=== PATIENT | female | born 1945 | race Two or more races ===

== ENCOUNTER 2017-04-06 00:04 | Inpatient (IN) | payer MEDICARE, MEDICAID ==
[2017-04-06] VITALS (7 sets, daily range): BP systolic 115–141; BP diastolic 59–74
[~2017-04-06] VITALS: Ht 152.4 cm; Wt 77.1 kg
[~2017-04-06 00:04] MED LIST: ACET-868 PO; ASPI-991 PO; BLOO-697 IN; CHOL100044 PO; CITA20TA11 PO; DOCU-270 PO; FAMO20TA8 PO; FURO20TA4 PO; INSU100V7 SQ; METF500T4 PO; METO-302 PO; PREG25CA PO; SIMV40TA5 PO
--- NOTE | 2017-04-06 00:13 | NUR ---
TO BED 7 A 71 YO FEMALE PT MALKA FROM [facility] FOR A COUGH X 2 DAYS. PER PATIENT SHE HAS BEEN COUGHING ALOT WITH YELLOW SPUTUM, AND HAD FEVER YESTERDAY. PATIENT IS AAOX3, NO S/S OF ACUTE DISTRESS. 95% O2 SAT ON ROOM AIR, ENCOURAGED DEEP BREATHING EXERCISES. GOWNED. INITIATED COMFORT MEASURES. AWAITING FOR ER MD THAKUR.
--- NOTE | 2017-04-06 00:23 | NUR ---
CXR AT BEDSIDE.
[2017-04-06] MEDS ORDERED: CLONIDINE HCL 0.1 MG TABLET ONE (00:43)
[2017-04-06] MEDS ORDERED: CLONIDINE HCL 0.1 MG TABLET PO ONE (01:00)
--- NOTE | 2017-04-06 01:25 | NUR ---
started a saline lock on the right wrist g20, blood drawn and sent to lab.
[2017-04-06 01:40] LABS: BASOPHILS % (AUTO) 0.3 % (0.0-2.0); EOSINOPHILS % (AUTO) 0.6 % (0.0-6.0); HEMATOCRIT 28 % (33-45); HEMOGLOBIN 9.3 g/dL (11.5-14.8); LYMPHOCYTES # (AUTO) 1.6 /CMM (0.8-4.8); LYMPHOCYTES % (AUTO) 24.6 % (20.0-44.0); MEAN CORPUSCULAR HEMOGLOBIN 29 PG (26.0-33.0); MEAN CORPUSCULAR HGB CONC 33 g/dl (31.0-36.0); MEAN CORPUSCULAR VOLUME 86 fL (82-100); MONOCYTES # (AUTO) 0.5 /CMM (0.1-1.30); MONOCYTES % (AUTO) 8.5 % (2.0-12.0); NEUTROPHILS # (AUTO) 4.2 /CMM (1.8-8.9); PLATELET COUNT (AUTO) 173 /CMM (150-450); RDW COEFFICIENT OF VARIATION 14.6 (11.5-15.0); RED BLOOD CELL COUNT(AUTO) 3.25 MIL/uL (4.0-5.2); WHITE BLOOD COUNT (AUTO) 6.4 K/uL (4.3-11.0)
[2017-04-06 01:52] LABS: INR 0.98 (0.87-1.13); PROTHROMBIN TIME 10.5 SECS (9.5-12.7)
[2017-04-06 01:55] LABS: CALCIUM, SERUM 8.5 mg/dL (8.5-10.1); CARBON DIOXIDE 20 mmol/L (21-32); CHLORIDE 110 mmol/L (98-107); CREATININE 2.1 mg/dL (0.6-1.3); GLUCOSE 135 mg/dL (74-106); SODIUM SERUM 141 mmol/L (136-145); UREA NITROGEN, BLOOD 50 mg/dL (7-18)
[2017-04-06] MEDS ORDERED: LOSA50TA21 PO (01:57)
[2017-04-06 02:04] LABS: TROPONIN I 0.026 ng/mL (0.00-0.056)
[2017-04-06 02:08] LABS: B-TYPE NATRIURETIC PEPTIDE 4041 PG/ML (0-125)
--- NOTE | 2017-04-06 02:19 | NUR ---
Report given to Johny RN for admission and lora.
--- NOTE | 2017-04-06 02:40 | NUR ---
ADMISSION NOTES: RECEIVED REPORT FROM ERIN ASHFORD, PT CAME FROM [facility], A/O X3 BROUGHT TO THE UNIT VIA GURNEY, PT REFUSING OXYGEN, 93% ON RA, C/O THROAT PAIN AND REQUESTING FOR COUGH SUPPRESSANT. HAS RIGHT WRIST IV G 20, HL. ORIENTED PT TO UNIT POLICY AND HOURLY ROUNDING, INVENTORY OF BELONGING COMPLETED BY SNATY ECHAVARRIA, VS TAKEN AND RECORDED, SKIN ASSESSMENT PERFORMED, TOOK PICTURES AND ATTACHED TO CHART, TELEMONITORING ON SINUS RHYTHM HR 85, DENIES ANY CHEST PAIN OR SOB AT THIS TIME. SAFETY PRECAUTIONS FOR FALL INITIATED CALL LIGHT IN REACH WILL CONTINUE TO MONITOR.
--- NOTE | 2017-04-06 02:42 | NUR ---
Transported to [facility] bed 327-2 via [facility] protocol, no incident noted. Hitesh RN at bedside.
--- NOTE | 2017-04-06 03:27 | NUR ---
ADMIT TO ORDERS: TALKED TO MARJ HOLLAND NP OF DR VINCENT, RELAYED ALL HOME MEDS OF THE PT, PER MARKETING LIAISON TO CONTINUE ALL HOME MEDS EXCEPT METFORMIN, SHE WOULD LIKE TO DC IT BUN CREA ELEVATED 50/2.1, ALSO PT REQUESTING COUGH SUPPRESSANT AND C/O THROAT PAIN, PER MARKETING LIAISON TO GIVE CEPACOL ISHA Q4HRS PRN, AND ROBITUSSIN AC 10CC PO Q4HRS PRN, ALSO SHE WOULD LIKE TO GIVE LASIX 20MG IVP Q12HRS 1ST DOSE TO BE GIVEN NOW, ALSO STAT ABG, ADMIT TO TELEMETRY, WITH DIAGNOSIS OF ACUTE CHF EXACERBATION
[2017-04-06] MEDS ORDERED: MENTHOL/CETYLPYRD (CEPACOL) 1 LOZ LOZENGE ONE (03:28)
[2017-04-06] MEDS ORDERED: GUAIFENESIN/CODEINE 10 ML UDC ONE (03:29)
[2017-04-06] MEDS ORDERED: FUROSEMIDE 20 MG/2 ML VIAL ONE (03:29)
--- NOTE | 2017-04-06 03:36 | NUR ---
ACCUCHECK ORDERS: CONTACTED MARJ HOLLAND NP OF DR VINCENT RELAYED ABOUT BLOOD SUGAR CHECK, PER BELT BUCKLE MAKER, ACCU CHECK ACHS, NO COVERAGE, BUT CONTINUE WITH LANTUS 10UNITS AT HS
--- NOTE | 2017-04-06 03:40 | NUR ---
PRN CEPACOL AND ROBITUSSIN: PT REQUESTED FOR MEDICATION FOR COUGH AND HER THROAT PAIN, PRN ROBITUSSIN 10ML ADMINISTERED TO THE PT, ALSO CEPACOL LOZENGES GIVEN TO THE PT, WILL CONTINUE TO MONITOR AND REASSESS
[2017-04-06] MEDS: GUAIFENESIN/CODEINE 10 ML UDC PO PRN ×3 (03:41→21:56)
[2017-04-06] MEDS: MENTHOL/CETYLPYRD (CEPACOL) 1 LOZ LOZENGE PO PRN (03:41)
[2017-04-06] MEDS: FUROSEMIDE 20 MG/2 ML VIAL IV SCH ×3 (03:41→21:56)
--- NOTE | 2017-04-06 03:48 | NUR ---
OXYGEN REFUSAL: PT REFUSED FOR OXYGEN, SHE STATED SHE'S GETTING SUFFOCATED WITH THE OXYGEN, EXPLAINED TO THE PT REGARDING IMPORTANCE OF OXYGEN, BENEFITS, BUT PT REFUSED, WILL ENCOURAGE AGAIN LATER
--- NOTE | 2017-04-06 04:24 | NUR ---
MONEY TO KEEP IN SAFE: PT HAS $132 AND WOULD LIKE TO KEEP IT IN SAFE, PLACED ON TURNER SAFE BAG AND WILL BE SEND TO NURSING SUP SAFE BOX, WITH NUMBER [id number]
--- NOTE | 2017-04-06 05:00 | NUR ---
REFUSAL FOR ABG: PT REFUSED FOR ABG, STATED SHE DOESNT WANT TO BE POKE AGAIN, EXPLAINED TO THE PT REGARDING RISK AND BENEFITS BUT PT STILL REFUSED, RELAYED TO SCHOLASTIC APTITUDE TEST GRADERJU SMITH, PT 95% ON ROOM AIR NO SOB NOTED
[2017-04-06] MEDS: BLOOD SUGAR DIAGNOSTIC 1 EACH STRIP IN SCH ×6 (06:20→22:00)
--- NOTE | 2017-04-06 06:21 | NUR ---
ACCU CHECK: CHECKED BLOOD SUGAR AND REVEAL 164, NO INSULIN COVERAGE GIVEN PER MD ORDERED, ALSO PT REFUSING FOR INSULIN STATED SHE ONLY TAKES ORAL PILL METFORMIN, INFORMED PT IT WAS CD BY MD,
--- NOTE | 2017-04-06 06:42 | NUR ---
SHOT HOLE SHOOTER CLOSING NOTES: PT IN BED, SLEEPING, AROUSABLE TO TACTILE STIMULI, PT APPEARS CALM AND COMFORTABLE, NO FACIAL GRIMACE NOTED, NO SOB NOTED, PT STILL REFUSING OXYGEN, RIGHT WRIST IV ACCESS REMAINS PATENT AND FLUSHING WELL, ON HL. VS REMAINS STABLE, NEEDS ATTENDED, REMAINS SINUS RHYTHM HR 75, WILL ENDORSE TO DAY RN FOR ELISEO.
--- NOTE | 2017-04-06 07:30 | NUR ---
EKG MONITOR TECH NOTES RECEIVED REPORT WITH PATIENT IN BED. PATIENT IS CURRENTLY A/OX3. PATIENT ON TELE MONITOR: SINUS RHYTHM 84. NO S/S OF ACUTE DISTRESS NOTED. NO SOB NOTED. IV IS PATENT AND INTACT. BED IS IN LOWEST, LOCKED POSITION. CALL LIGHT IS WITHIN REACH. WILL CONTINUE TO MONITOR THROUGHOUT SHIFT.
[2017-04-06] MEDS ORDERED: BLOOD SUGAR DIAGNOSTIC 1 EACH STRIP IN SCH (09:00)
[2017-04-06] MEDS: PREGABALIN 25 MG CAPSULE PO SCH ×2 (09:16→18:07)
[2017-04-06] MEDS: CITALOPRAM HYDROBROMIDE 20 MG TABLET PO SCH (09:16)
[2017-04-06] MEDS: ASPIRIN EC 81 MG TABLET.DR PO SCH (09:17)
[2017-04-06] MEDS: FAMOTIDINE (20 MG) 20 MG TABLET PO SCH (09:17)
[2017-04-06] MEDS: LOSARTAN POTASSIUM 50 MG TABLET PO SCH ×2 (09:17→18:07)
[2017-04-06] MEDS: ACETAMINOPHEN ES 500 MG TABLET PO PRN ×2 (12:14→20:08)
--- NOTE | 2017-04-06 12:25 | NUR ---
BRAKE RIDER NOTES PATIENT BLOOD SUGAR AT 170. NO COVERAGE ORDERED. MD MADE AWARE OF RESULTS. NO NEW ORDERS GIVEN.
[2017-04-06] MEDS ORDERED: DEXTROSE 50%-WATER 50 ML DISP.SYRIN IV PRN (13:00)
--- NOTE | 2017-04-06 19:25 | NUR ---
RN OPEN NOTES RECEIVED PATIENT AWAKE IN BED WITH FAMILY AT BEDSIDE. A/O X3. NO SIGNS OF DISTRESS OR DISCOMFORT. BREATHING EVEN AND UNLABORED. IV ACCESS IN R WRIST PATENT AND INTACT, NO SIGNS OF REDNESS OR INFILTRATION. BED IN LOW LOCKED POSITION WITH SIDE RAILS X2. CALL LIGHT WITHIN REACH. WILL CONTINUE TO MONITOR.
--- NOTE | 2017-04-06 19:30 | NUR ---
MS RN NOTES PATIENT IS A/OX4. NO SOB NOTED. NO S/S OF DISTRESS NOTED. IV IS PATENT AND INTACT. BED IS IN LOWEST, LOCKED POSITION. CALL LIGHT WITHIN REACH. ALL PT NEEDS HAVE BEEN MET. WILL ENDORSE CARE TO PM SHIFT.
[2017-04-06] MEDS: SIMVASTATIN 40 MG TABLET PO SCH (21:56)
[2017-04-06] MEDS: INSULIN ASPART NOVOLOG 100 UNIT/ML CARTRIDGE SQ PRN (21:58)
[2017-04-06] MEDS: INSULIN DETEMIR 100 UNIT/ML CARTRIDGE SQ SCH (21:59)
[2017-04-07] VITALS (7 sets, daily range): BP systolic 102–135; BP diastolic 43–68
[2017-04-07] MEDS: BLOOD SUGAR DIAGNOSTIC 1 EACH STRIP IN SCH ×4 (06:29→22:10)
--- NOTE | 2017-04-07 07:21 | NUR ---
RN CLOSING NOTES PATIENT RESTING IN BED EASILY AROUSABLE TO NAME. A/O X3. NO SIGNS OF DISTRESS OR DISCOMFORT. BREATHING EVEN AND UNLABORED. ON TELE MONITORING WITH SR NOTED. IV ACCESS IN R WRIST PATENT AND INTACT, NO SIGNS OF REDNESS OR INFILTRATION. ALL NEEDS MET. NO SIGNIFICANT CHANGES THROUGH THE NIGHT. PATIENT KEPT CLEAN DRY AND COMFORTABLE. REPOSITIONED Q2H. BED IN LOW LOCKED POSITION WITH SIDE RAILS X2. CALL LIGHT WITHIN REACH. WILL ENDORSE TO AM SHIFT FOR ELISEO.
--- NOTE | 2017-04-07 07:31 | NUR ---
INLAYER OPENING NOTE PATIENT IS ALERT AND ORIENTED x3. NO PAIN AT THIS TIME. NO SOB OR DISTRESS NOTED. CALL LIGHT WITHIN REACH. SAFETY MEASURES IMPLEMENTED. ABLE TO COMMUNICATE NEEDS. IV INTACT AND PATENT NO REDNESS OR SWELLING NOTED. ON STRICT INTAKE AND OUTPUT WITH DAILY WEIGHTS. WILL CONTINUE TO MONITOR
[2017-04-07] MEDS: PREGABALIN 25 MG CAPSULE PO SCH ×2 (08:46→16:29)
[2017-04-07] MEDS: ACETAMINOPHEN ES 500 MG TABLET PO PRN ×2 (08:46→15:43)
[2017-04-07] MEDS: ASPIRIN EC 81 MG TABLET.DR PO SCH (08:47)
[2017-04-07] MEDS: LOSARTAN POTASSIUM 50 MG TABLET PO SCH ×2 (08:47→16:29)
[2017-04-07] MEDS: FAMOTIDINE (20 MG) 20 MG TABLET PO SCH (08:47)
[2017-04-07] MEDS: CITALOPRAM HYDROBROMIDE 20 MG TABLET PO SCH (08:47)
[2017-04-07] MEDS: FUROSEMIDE 20 MG/2 ML VIAL IV SCH ×2 (08:48→21:56)
[2017-04-07] MEDS: INSULIN ASPART NOVOLOG 100 UNIT/ML CARTRIDGE SQ PRN (12:40)
--- NOTE | 2017-04-07 19:07 | NUR ---
SEALER SANDER CLOSING NOTE PATIENT IS ALERT AND ORIENTED x3. NO PAIN AT THIS TIME. NO SOB OR DISTRESS NOTED. CALL LIGHT WITHIN REACH AT ALL TIMES. SAFETY MEASURES IMPLEMENTED. ABLE TO COMMUNICATE NEEDS. IV INTACT AND PATENT NO REDNESS OR SWELLING NOTED. WILL ENDORSE TO HVAC DESIGN ENGINEER NURSE FOR ELISEO.
--- NOTE | 2017-04-07 21:00 | NUR ---
MAKEDA NOTES PATIENT ENDORSED TO SCOTT ASHFORD FOR ELISEO. Addendum: 04/07/17 at 2159 by BHARTI CASTILLO RN ENDORSED TO SCOTT HAYWOOD
--- NOTE | 2017-04-07 21:14 | NUR ---
RECEIVED PT IN BED A/O 3 ABLE TO FOLLOW SIMPLE COMMMANDS AND MAKE NEEDS KNOWN PERRLA. DENIES ANY PAIN. NO SOB NOTED NOT IN ANY DISTRESS. BREATHE SOUNDS CLEAR BILATERALLY TO AUSCULTATION. INCONTINENT OF BOTH BOWEL AND BLADDER. BOWEL SOUNDS ACTIVE ON ALL FOUR QUADRANTS. SKIN CLEAR AND IN TACT. ABLE TO MOVE ALL EXTREMITIES WITH WEAKNESS TO BLE. ALL NEEDS MET, WILL CONTINUE TO MONITOR FOR ANY CHANGES, BED IN LOW POSITION CALL LIGHT WITHIN REACH.
[2017-04-07] MEDS: SIMVASTATIN 40 MG TABLET PO SCH (22:13)
[2017-04-07] MEDS: INSULIN DETEMIR 100 UNIT/ML CARTRIDGE SQ SCH (22:15)
[2017-04-07] MEDS: TRAMADOL HCL 50 MG TABLET PO PRN (22:33)
[2017-04-08] VITALS (7 sets, daily range): BP systolic 105–141; BP diastolic 2–65
[2017-04-08] MEDS: GUAIFENESIN/CODEINE 10 ML UDC PO PRN ×3 (00:27→23:33)
--- NOTE | 2017-04-08 01:25 | NUR ---
pt noted resting, even chest rise. no cough, prn
[2017-04-08] MEDS: TRAMADOL HCL 50 MG TABLET PO PRN ×2 (04:05→18:20)
--- NOTE | 2017-04-08 06:08 | NUR ---
pt slept throughout the night with c/o cough. gave prn robitussin. effective. no SOB noted. not in any distress. remains a/o x3 able to verbalize needs. turned and repositioned [id number] remains incontinent of both bowel and bladder. denies any discomfort. all needs met. bed in low position call light within reach.
--- NOTE | 2017-04-08 07:25 | NUR ---
green end department supervisor initial notes Received patient in bed, awake, head of bed elevated, no SOB or distress noted. On tele monitor SR heart rate of 69, no complaint of pain or discomfort at this time, nor chest pain. Alert and oriented x 3. IV intact and patent. On daily weights 181.1lbs. Kept patient clean and comfortable in bed, call light with in patient reach, will continue to monitor accordingly.
[2017-04-08] MEDS: LOSARTAN POTASSIUM 50 MG TABLET PO SCH ×2 (08:11→17:45)
[2017-04-08] MEDS: FUROSEMIDE 20 MG/2 ML VIAL IV SCH ×2 (08:11→21:52)
[2017-04-08] MEDS: CITALOPRAM HYDROBROMIDE 20 MG TABLET PO SCH (08:11)
[2017-04-08] MEDS: PREGABALIN 25 MG CAPSULE PO SCH ×2 (08:11→17:45)
[2017-04-08] MEDS: FAMOTIDINE (20 MG) 20 MG TABLET PO SCH (08:11)
[2017-04-08] MEDS: ASPIRIN EC 81 MG TABLET.DR PO SCH (08:11)
[2017-04-08] MEDS: INSULIN ASPART NOVOLOG 100 UNIT/ML CARTRIDGE SQ PRN ×4 (08:12→22:02)
[2017-04-08] MEDS: BLOOD SUGAR DIAGNOSTIC 1 EACH STRIP IN SCH ×4 (08:12→21:52)
--- NOTE | 2017-04-08 08:12 | NUR ---
sane rn notes Blood sugar checked 102 no coverage given. Will continue to monitor accordingly.
[2017-04-08 11:08] LABS: CALCIUM, SERUM 8.3 mg/dL (8.5-10.1); CARBON DIOXIDE 21 mmol/L (21-32); CHLORIDE 106 mmol/L (98-107); CREATININE 2.5 mg/dL (0.6-1.3); GLUCOSE 173 mg/dL (74-106); POTASSIUM 4.8 mmol/L (3.5-5.1); SODIUM SERUM 139 mmol/L (136-145); UREA NITROGEN, BLOOD 57 mg/dL (7-18)
--- NOTE | 2017-04-08 11:22 | NUR ---
WOUND CARE CONSULT: PT PRESENTS WITH LEFT HEEL DRY ESCHAR, PRESENT ON ADMISSION. RECOMMENDATIONS MADE FOR SKIN PROTECTION. DISCUSSED WITH NURSING STAFF. PT ON COMFORT GEL MATTRESS. ROLANDO SCORE IS 15. WILL SEE PRN. ESTES IN AGREEMENT WITH PLAN OF CARE. Addendum: 04/08/17 at 1124 by GUSTAVO GALEAS WNDNU Amended: Links added.
[2017-04-08] MEDS ORDERED: Z GUARD REMEDY 2 OZ OINT TP PRN (11:30)
[2017-04-08] MEDS: Z GUARD REMEDY 2 OZ OINT TP SCH (12:33)
[2017-04-08] MEDS: MENTHOL/CETYLPYRD (CEPACOL) 1 LOZ LOZENGE PO PRN (14:44)
--- NOTE | 2017-04-08 19:24 | NUR ---
MS RN closing notes All needs provided, attended, and anticipated. Kept patient clean and comfortable in bed, call light with in patient reach, on 02 @ 2lpm via NC and tolerated well. Endorsed to next shift RN to continue care.
--- NOTE | 2017-04-08 20:00 | NUR ---
RECEIVED PATIENT IN BED, ALERT AND ORIENTED X3, CALM, NO SOB, NO RESPIRATORY DISTRESS, NOTED CONGESTION, INTERMITTENT COUGHING, DENIES ANY PAIN AT THIS TIME, RECEIVED PAIN MEDICATION EARLIER, ABDOMEN SOFT AND NON-TENDER, ACTIVE BOWEL SOUNDS, INCONTINENT OF BOWEL AND BLADDER, RIGHT WRIST SALINE LOCK IS PATENT. REPOSITIONED FOR COMFORT, CALL LIGHT WITHIN REACH.
[2017-04-08] MEDS: SIMVASTATIN 40 MG TABLET PO SCH (21:51)
[2017-04-08] MEDS: INSULIN DETEMIR 100 UNIT/ML CARTRIDGE SQ SCH (22:03)
--- NOTE | 2017-04-08 23:45 | NUR ---
NOTED COUGHING, GIVEN ROBITUSSIN WITH CODEINE, WILL CONTINUE TO MONITOR
[2017-04-09] MEDS: BLOOD SUGAR DIAGNOSTIC 1 EACH STRIP IN SCH ×2 (06:15→12:16)
[2017-04-09] MEDS: INSULIN ASPART NOVOLOG 100 UNIT/ML CARTRIDGE SQ PRN ×2 (06:22→12:16)
--- NOTE | 2017-04-09 06:23 | NUR ---
BG 97 MG/DL, NO INSULIN COVERAGE
--- NOTE | 2017-04-09 06:31 | NUR ---
PATIENT IS ALERT AND AWAKE, NO SOB, NO DISTRESS, TOLERATING ROOM AIR, DENIES ANY PAIN AT THIS TIME, NO COUGHING NOTED, PROVIDED GOOD PERINEAL CARE, ALL DUE MEDICATIONS GIVEN, CALL LIGHT WITHIN REACH.
[2017-04-09 06:36] VITALS: BP 108/59
[2017-04-09 06:37] VITALS: BP 105/54
[2017-04-09 06:38] VITALS: BP 112/56
--- NOTE | 2017-04-09 07:25 | NUR ---
ms rn initial notes Received patient in bed, awake, head of bed elevated, no SOB or distress noted. On 02 @ 2lpm via NC and tolerated well, saturation of 95%. Patient is alert and oriented x 4, verbally responsive and able to make needs known. IV intact and patent. No complaint of pain or discomfort at this time. Kept patient clean and comfortable in bed call light with in patient reach, will continue to monitor accordingly.
[2017-04-09 08:00] VITALS: BP 129/66
[2017-04-09 09:15] VITALS: BP 129/66
[2017-04-09] MEDS: LOSARTAN POTASSIUM 50 MG TABLET PO SCH (09:15)
[2017-04-09] MEDS: CITALOPRAM HYDROBROMIDE 20 MG TABLET PO SCH (09:15)
[2017-04-09] MEDS: ASPIRIN EC 81 MG TABLET.DR PO SCH (09:15)
[2017-04-09] MEDS: FAMOTIDINE (20 MG) 20 MG TABLET PO SCH (09:15)
[2017-04-09] MEDS: FUROSEMIDE 20 MG/2 ML VIAL IV SCH (09:15)
[2017-04-09] MEDS: Z GUARD REMEDY 2 OZ OINT TP SCH (09:16)
[2017-04-09] MEDS: PREGABALIN 25 MG CAPSULE PO SCH (09:17)
[2017-04-09] MEDS: TRAMADOL HCL 50 MG TABLET PO PRN (14:28)
--- NOTE | 2017-04-09 16:10 | NUR ---
ms investigator internal affairs notes Discharge instructions given to patient and nephew Colón on site and able to understand instructions. Eldon (nephew) signed discharge paper and belonging list and released wallet with $132. Discontinued IV and pressured applied to prevent bleeding. Skin assessment done and pictures taken and filed in the chart. No SOB or distress noted. [facility] Flu and pneumonia vaccine not given due to patient is up to date last given 07/2016. [facility] came to moss picker the patient via gurney accompanied by nephew. Patient left in stable condition, no complaint of pain or discomfort noted, on room air, nor chest pain. MD and charge nurse aware.
== END 2017-04-09 16:01 | DRG 291 ==
LOC: ER 00:06 → TELE 02:33 → MED 04-08 10:28
PROVIDERS: ADMIT Internal Medicine; ATTEND Internal Medicine
DX: I13.0 Hypertensive heart and chronic kidney disease with heart failure and stage 1 through stage 4 chronic kidney disease, or unspecified chronic kidney disease (principal); I50.33 Acute on chronic diastolic (congestive) heart failure; N17.9 Acute kidney failure, unspecified; N18.9 Chronic kidney disease, unspecified; E66.9 Obesity, unspecified; Z68.36 Body mass index [BMI] 36.0-36.9, adult; I25.10 Atherosclerotic heart disease of native coronary artery without angina pectoris; Z95.1 Presence of aortocoronary bypass graft; E66.01 Morbid (severe) obesity due to excess calories; I25.2 Old myocardial infarction; Z88.0 Allergy status to penicillin; Z88.2 Allergy status to sulfonamides; E11.22 Type 2 diabetes mellitus with diabetic chronic kidney disease; E11.40 Type 2 diabetes mellitus with diabetic neuropathy, unspecified
CPT/HCPCS: 36415; 71010-TC; 80048-TC; 82962-TC; 83605-TC; 83880; 84484-TC; 85025-TC; 85730-TC; 87040-TC; 87081-TC; 93307-TC; A4606; J1815; J1940; Z7610

== ENCOUNTER 2017-06-14 14:26 | Inpatient (IN) | payer MEDICARE, MEDICAID ==
[~2017-06-14] VITALS: Ht 165.1 cm; Wt 80.3 kg
[~2017-06-14 14:26] MED LIST changes: -ACET-868 PO; -CHOL100044 PO; -DOCU-270 PO; -FURO20TA4 PO; +LOSA50TA21 PO; -METO-302 PO
--- NOTE | 2017-06-14 14:35 | NUR ---
PATIENT BIB RA C/O SOB AND ALTERED MORE THAN USUAL. PATIENT IS BROUGHT IN ON NON REBREATHER MASK. SATURATION 100%. NO COMPLICATIONS NOTED. PATIENT'S VITALS STABLE. SAFETY AND COMFORT MEASURES IN PLACE. AWAITING MD ORDERS.
--- NOTE | 2017-06-14 14:45 | NUR ---
NEW IV INSERTED ON LEFT HAND, 20 G. NOT ABLE TO DRAW BLOOD FROM IV, BUT PATENT AND INTACT. IUSS ACOUSTIC ANALYST TO DRAW BLOOD.
[2017-06-14 14:54] LABS: BASOPHILS # (AUTO) 0.2 /CMM (0.0-0.2); BASOPHILS % (AUTO) 1.6 % (0.0-2.0); EOSINOPHILS # (AUTO) 0.1 /CMM (0.0-0.7); EOSINOPHILS % (AUTO) 0.5 % (0.0-6.0); HEMATOCRIT 27 % (33-45); LYMPHOCYTES # (AUTO) 2.4 /CMM (0.8-4.8); LYMPHOCYTES % (AUTO) 17.6 % (20.0-44.0); MEAN CORPUSCULAR HEMOGLOBIN 28 PG (26.0-33.0); MEAN CORPUSCULAR HGB CONC 33 g/dl (31.0-36.0); MEAN CORPUSCULAR VOLUME 84 fL (82-100); MONOCYTES # (AUTO) 0.7 /CMM (0.1-1.30); MONOCYTES % (AUTO) 5.2 % (2.0-12.0); NEUTROPHILS % (AUTO) 75.1 % (43.0-81.0); PLATELET COUNT (AUTO) 196 /CMM (150-450); RDW COEFFICIENT OF VARIATION 14.6 (11.5-15.0); RED BLOOD CELL COUNT(AUTO) 3.25 MIL/uL (4.0-5.2); WHITE BLOOD COUNT (AUTO) 13.4 K/uL (4.3-11.0)
[2017-06-14] MEDS ORDERED: ACET-868 PO (14:54)
[2017-06-14] MEDS ORDERED: AMIO200T2 PO (14:54)
[2017-06-14] MEDS ORDERED: NA P133E RC (14:54)
[2017-06-14] MEDS ORDERED: BISA10SU8 RC (14:54)
[2017-06-14] MEDS ORDERED: ALBI30PE SQ (14:54)
[2017-06-14] MEDS ORDERED: FURO-145 PO (14:54)
[2017-06-14] MEDS ORDERED: MIRT15TA PO (14:54)
[2017-06-14] MEDS ORDERED: MAGN400O6 PO (14:54)
[2017-06-14] MEDS ORDERED: LOSA25TA13 PO (14:54)
[2017-06-14] MEDS ORDERED: INSU100V11 SQ (14:54)
[2017-06-14] MEDS ORDERED: APIX2.5T PO (14:54)
[2017-06-14] MEDS ORDERED: TRAM50TA2 PO (14:54)
[2017-06-14] MEDS ORDERED: SITA50TA PO (14:54)
[2017-06-14] MEDS ORDERED: IPRA3AMP IH (14:54)
[2017-06-14] MEDS ORDERED: SENN8.6T6 PO (14:54)
[2017-06-14] MEDS ORDERED: IV NS 0.9% 500 ML BAG IV ONE (15:00)
[2017-06-14 15:03] LABS: CALCIUM, SERUM 8.3 mg/dL (8.5-10.1); CARBON DIOXIDE 18 mmol/L (21-32); CHLORIDE 107 mmol/L (98-107); GLUCOSE 126 mg/dL (74-106); POTASSIUM 4.3 mmol/L (3.5-5.1); SODIUM SERUM 140 mmol/L (136-145)
[2017-06-14 15:05] LABS: UREA NITROGEN, BLOOD 80 mg/dL (7-18)
[2017-06-14 15:16] LABS: B-TYPE NATRIURETIC PEPTIDE 7219 PG/ML (0-125)
--- NOTE | 2017-06-14 15:27 | NUR ---
TELEPHONE DIAPHRAGM ASSEMBLER AT BEDSIDE.
[2017-06-14] MEDS ORDERED: IV NS 0.9% 1,000 ML BAG IV ONE (15:30)
--- NOTE | 2017-06-14 16:47 | NUR ---
REPORT GIVEN TO MAKEDA WARD FOR ADMISSION.
--- NOTE | 2017-06-14 17:10 | NUR ---
MS ASHFORD Initial Notes; Patient admitted from ER per MD orders. Patient alert oriented x1. Vital signs WNL. Patient on 3 L nasal cannula. Patient denies pain. Bed in lowest/locked position. Call light within reach. Contacted Tonja Zhang NP. Report from [place]. Valuables accounted for. Home medications were continued. Patient placed on NPO till speech consultation to be done. Will continue to monitor patient.
[2017-06-14 17:15] VITALS: BP_SYST 132; BP_SYST 137; BP_DIAS 69
--- NOTE | 2017-06-14 17:21 | NUR ---
BENEFIT DIRECTOR AT BEDSIDE AND UNABLE TO PERFORM STAT 2D ECHO. DR OSHEA MADE AWARE
--- NOTE | 2017-06-14 17:25 | NUR ---
PATIENT TRANSPORTED TO [facility] FOR ADMISSION. RNSYLVIA TO PROVIDE ELISEO.
[2017-06-14] MEDS: AMIODARONE HCL 200 MG TABLET PO SCH (18:30)
[2017-06-14] MEDS: APIXABAN 2.5 MG TABLET PO SCH (18:30)
[2017-06-14] MEDS ORDERED: MAGNESIUM HYDROXIDE 30 ML UDC PO PRN (18:30)
[2017-06-14] MEDS: FAMOTIDINE (20 MG) 20 MG TABLET PO SCH (18:30)
[2017-06-14] MEDS ORDERED: TRAMADOL HCL 50 MG TABLET PO PRN (18:30)
[2017-06-14] MEDS ORDERED: Medication Not On Formulary EA (Ipratropium/Albuterol Sulfate (Duoneb 2.5-0.5 Mg/3 Ml So IH PRN (18:30)
[2017-06-14] MEDS ORDERED: BISACODYL SUPP (10 MG) 10 MG/SUPP.RECT SUPP.RECT RC PRN (18:30)
[2017-06-14] MEDS ORDERED: NA PHOS,M-B/NA PHOS,DI-BA 1 EA ENEMA RC PRN (18:30)
[2017-06-14] MEDS: LOSARTAN POTASSIUM 25 MG TABLET PO SCH (18:30)
[2017-06-14] MEDS: PREGABALIN 25 MG CAPSULE PO SCH (18:30)
[2017-06-14] MEDS ORDERED: ALBUTEROL FS 2.5 MG/3 ML VIAL.NEB NEB PRN (19:00)
[2017-06-14] MEDS ORDERED: IPRATROPIUM NEB FS 0.5 MG/2.5 ML AMPUL.NEB NEB PRN (19:00)
--- NOTE | 2017-06-14 19:11 | NUR ---
ABG ORDER FOR 1835 ON ROOM AIR COULD NOT BE TAKEN AT THIS TIME. PT IS CURRENTLY ON 3L SAT 88%. MAKEDA ELENOR IS AWARE.
--- NOTE | 2017-06-14 19:51 | NUR ---
Closing RN notes: Patient resting in bed. Patient alert oriented x1. Vital signs WNL. Patient on 3 L nasal cannula. Patient denies pain. Bed in lowest/locked position. Call light within reach. Patient endorsed to next shift
[2017-06-14 20:00] VITALS: BP 117/51
[2017-06-14] MEDS: BLOOD SUGAR DIAGNOSTIC 1 EACH STRIP IN SCH (21:42)
[2017-06-14] MEDS: SENNOSIDES 8.6 MG TABLET PO SCH (22:00)
[2017-06-14] MEDS: MIRTAZAPINE 15 MG TABLET PO SCH (22:00)
[2017-06-14] MEDS: INSULIN ASPART HUMALOG/NOVOLOG 100 UNIT/ML CARTRIDGE SQ PRN (22:03)
--- NOTE | 2017-06-14 22:04 | NUR ---
RN NOTES TRESA SANCHEZ HELD PATIENT NPO. ACCUCHECK 115 MG/DL, INSULIN HELD. PATIENT NPO TILL SWALLOW EVAL.
[2017-06-15] VITALS: BP 116/43
[2017-06-15 04:00] VITALS: BP 128/40
[2017-06-15] MEDS: BLOOD SUGAR DIAGNOSTIC 1 EACH STRIP IN SCH ×4 (06:31→22:24)
--- NOTE | 2017-06-15 06:59 | NUR ---
RN NOTES PATIENT IS ALERT AND AWAKE, ON 2LPM VIA NC, SPO2 92%, NOT IN APPARENT PAIN, NPO PENDING SWALLOW EVAL. ALL NEEDS ATTENDED, CALL LIGHT WITHIN REACH.
--- NOTE | 2017-06-15 07:30 | NUR ---
TELE/RN OPENING NOTES RECEIVED PT. IN BED A&OX2. TELE READING SINUS RHYTHM 80 BPM. BREATHING IS UNLABORED ON OXYGEN AT 2L/MIN WITH NASAL CANNULA. PT. IS NPO DUE TO AWAITING SWALLOW EVALUATION, AND DIET IS PENDING. NO S/S OF ACUTE DISTRESS. BED IS IN LOW POSITION, 2 SIDE RAILS UP, AND INSTRUCTED PT. TO USE CALL LIGHT WITHIN REACH. ALL NEEDS ATTENDED TO AT THIS TIME. WILL CONTINUE TO ASSESS AND MONITOR.
[2017-06-15 08:00] VITALS: BP 119/41
[2017-06-15] MEDS: PREGABALIN 25 MG CAPSULE PO SCH ×2 (09:00→17:49)
[2017-06-15] MEDS: APIXABAN 2.5 MG TABLET PO SCH ×2 (09:00→17:49)
[2017-06-15] MEDS ORDERED: INSULIN DETEMIR 100 UNIT/ML CARTRIDGE SQ SCH (09:00)
[2017-06-15] MEDS ORDERED: FUROSEMIDE 20 MG TABLET PO SCH (09:00)
[2017-06-15] MEDS ORDERED: ALBIGLUTIDE 30 MG SQ SCH (09:00)
[2017-06-15] MEDS: FAMOTIDINE (20 MG) 20 MG TABLET PO SCH ×2 (09:00→17:49)
[2017-06-15] MEDS: LOSARTAN POTASSIUM 25 MG TABLET PO SCH (09:00)
[2017-06-15] MEDS: AMIODARONE HCL 200 MG TABLET PO SCH ×2 (09:00→17:49)
--- NOTE | 2017-06-15 11:05 | NUR ---
TELE/RN NOTES LEFT MESSAGE FOR DR. VINCENT REGARDING PT.'S NPO STATUS, AND POSSIBLY NO SWALLOW EVALUATION OVER WEEKEND. WANTED TO DISCUSS HOW TO MANAGE PT.'S BLOOD SUGAR ON NPO, PO MEDICATIONS BEING HELD, AND IV FLUIDS.
[2017-06-15] MEDS ORDERED: IV NS 0.9% 1,000 ML BAG IV PRN (12:30)
--- NOTE | 2017-06-15 12:40 | NUR ---
telephone maintainer notes Dr. Conner called RN assigned and ordered Heparin 5000 unit SQ Q12hrs. All orders carried out and noted. Will continue to monitor accordingly.
[2017-06-15] MEDS: IV NS 0.9% 1,000 ML IV PRN (12:51)
--- NOTE | 2017-06-15 13:38 | NUR ---
TELE/RN NOTES PT. WAS SEEN AND EXAMINED BY DR. VINECNT. PER MD ORDERS, HEPARIN AND LEVEMIR WAS DISCONTINUED, AND TO HOLD LASIX.
[2017-06-15 16:00] VITALS: BP 132/44
[2017-06-15] MEDS: INSULIN ASPART HUMALOG/NOVOLOG 100 UNIT/ML CARTRIDGE SQ PRN ×2 (17:55→22:47)
--- NOTE | 2017-06-15 19:30 | NUR ---
TELE/RN CLOSING NOTES RECEIVED PT. IN BED A&OX4. TELE MONITOR READING NORMAL SINUS RHYTHM 80 BPM.BREATHING IS UNLABORED ON OXYGEN AT 2L/MIN WITH NASAL CANNULA. WAS ABLE TO SWALLOW PUREED AND FULL LIQUIDS WITHOUT COMPLICATIONS. DIET WAS CHANGED TO PUREE FOOD, AND THICKENED LIQUIDS PER MD ORDERS. IV FLUIDS RUNNING AT 75 ML/HR. NO S/S OF ACUTE DISTRESS. BED IS IN LOW POSITION, 2 SIDE RAILS UP, AND INSTRUCTED PT. TO USE CALL LIGHT WITHIN REACH. ALL NEEDS ATTENDED TO AT THIS TIME.
--- NOTE | 2017-06-15 19:40 | NUR ---
TELE/CLERICAL ADJUDICATOR; RECEIVED PT'S REPORT FROM THE DAY SHIFT RN . PT AT THIS TIME IN BED AWAKE, ALERT AND VERBALLY RESPONSIVE. BREATHING NON LABORED. WITH O2 2L NC ON. ON TELEMETRY. IVF ON PROGRESS WITH NS AT 75 ML / HOUR ON LT HAND. NO S/S OF DISTRESS. DENIES PAIN. BED ON LOWER POSITION AND LOCKED FOR SAFETY. SIDE RAILS ARE UP FOR SAFETY. PT REMINDED TO CALL FOR HELP AND CALL LIGHT WITHIN REACH. WILL CONTINUE TO MONITOR.
[2017-06-15 20:00] VITALS: BP 113/46
[2017-06-15] MEDS ORDERED: HEPARIN SODIUM, PORCINE 5000 UNITS/1 ML VIAL SQ SCH (21:00)
[2017-06-15 21:25] VITALS: BP 122/62
[2017-06-15] MEDS: SENNOSIDES 8.6 MG TABLET PO SCH (21:48)
[2017-06-15] MEDS: MIRTAZAPINE 15 MG TABLET PO SCH (21:48)
--- NOTE | 2017-06-15 22:20 | NUR ---
TELE/LAUNDRY MANAGER; BS 208 COVERED WITH NOVOLOG INSULIN 4 UNITS SQ. PT AT THIS TIME IS ALERT AND ORIENTED. WILL CONTINUE TO MONITOR.
[2017-06-16] VITALS: BP 130/47
[2017-06-16] MEDS: IV NS 0.9% 1,000 ML IV PRN (01:56)
[2017-06-16 04:00] VITALS: BP 143/48
--- NOTE | 2017-06-16 06:00 | NUR ---
TELE/BALLET PROFESSOR; BS 79 NO COVERAGE. PT ON SR 66.
--- NOTE | 2017-06-16 06:00 | NUR ---
TELE/ROCK DUSTER; BS 79 NO COVERAGE. PT ON V - PACING 71. Addendum: 06/16/17 at 0757 by BRET DIEZ LVN DISREGARD THE ABOVE NOTES WITH ERRORS.
[2017-06-16] MEDS: BLOOD SUGAR DIAGNOSTIC 1 EACH STRIP IN SCH ×4 (06:14→22:08)
--- NOTE | 2017-06-16 07:00 | NUR ---
TELE/SANITIZER; SLEPT FAIRLY. IVF ON PROGRESS. AM CARE DONE BY THE REFRACTORY SPECIALIST. HAS BEEN TURNED AND REPOSITIONED. WILL ENDORSE TO THE DAY SHIFT NURSE FOR CONTINUITY OF CARE.
[2017-06-16 07:34] LABS: BASOPHILS % (AUTO) 0.2 % (0.0-2.0); EOSINOPHILS # (AUTO) 0.1 /CMM (0.0-0.7); EOSINOPHILS % (AUTO) 1.1 % (0.0-6.0); HEMATOCRIT 24 % (33-45); HEMOGLOBIN 7.8 g/dL (11.5-14.8); LYMPHOCYTES # (AUTO) 1.7 /CMM (0.8-4.8); LYMPHOCYTES % (AUTO) 20.8 % (20.0-44.0); MEAN CORPUSCULAR HEMOGLOBIN 28 PG (26.0-33.0); MEAN CORPUSCULAR HGB CONC 33 g/dl (31.0-36.0); MEAN CORPUSCULAR VOLUME 86 fL (82-100); MONOCYTES # (AUTO) 0.4 /CMM (0.1-1.30); MONOCYTES % (AUTO) 4.7 % (2.0-12.0); NEUTROPHILS % (AUTO) 73.2 % (43.0-81.0); PLATELET COUNT (AUTO) 181 /CMM (150-450); WHITE BLOOD COUNT (AUTO) 8.3 K/uL (4.3-11.0)
[2017-06-16 07:58] LABS: CALCIUM, SERUM 8.2 mg/dL (8.5-10.1); CARBON DIOXIDE 19 mmol/L (21-32); CHLORIDE 115 mmol/L (98-107); CREATININE 2.4 mg/dL (0.6-1.3); GLUCOSE 100 mg/dL (74-106); POTASSIUM 4.1 mmol/L (3.5-5.1); SODIUM SERUM 146 mmol/L (136-145); UREA NITROGEN, BLOOD 67 mg/dL (7-18)
[2017-06-16 08:00] VITALS: BP 146/47
--- NOTE | 2017-06-16 08:00 | NUR ---
HOSE STRIPPER NOTES PATIENT RESTING IN BED, ON OXYGEN VIA NC AT 2 LPM. NO SOB, NO ACUTE DISTRESS NOTED. NO C/O PAIN NOTED. ABLE TO VERBALIZE NEEDS. CALL LIGHT WITHIN REACH. PERIPHERAL IV LINE ON LEFT HAND, INTACT PATENT. BED INLOW LOCKED POSITION. OBSERVING CLOSELY.
[2017-06-16] MEDS: FAMOTIDINE (20 MG) 20 MG TABLET PO SCH ×2 (08:47→17:31)
[2017-06-16] MEDS: AMIODARONE HCL 200 MG TABLET PO SCH ×2 (08:47→17:31)
[2017-06-16] MEDS: APIXABAN 2.5 MG TABLET PO SCH ×2 (08:47→17:32)
[2017-06-16] MEDS: PREGABALIN 25 MG CAPSULE PO SCH ×2 (08:47→17:30)
[2017-06-16] MEDS: INSULIN ASPART HUMALOG/NOVOLOG 100 UNIT/ML CARTRIDGE SQ PRN (13:01)
--- NOTE | 2017-06-16 14:00 | NUR ---
HOME DELIVERY DRIVER NOTES PATIENT RESTING IN BED WITHOUT ANY COMPLICATIONS. NO C/O PAIN, NO DISTRESS NOTED. AL NEEDS MET. MONITORING CLOSELY.
[2017-06-16 16:00] VITALS: BP 147/51
[2017-06-16] MEDS: IV 1/2NS 1000 ML 1,000 ML IV PRN (16:16)
--- NOTE | 2017-06-16 19:01 | NUR ---
SYSTEMS TECHNOLOGIST NOTES PATIENT SLEEPING IN BED, COMFORTABLE, REPOSITIONED IN BED. PERIPHERAL IV LINE ON LEFT HAND INTACT PATENT. ON OXYGEN 2LPM VIA NC, OXYGEN SATURATION 98%, RESPIRATION NONLABORED. KEPT CLEAN & DRY. BED IN LOW LOCKED POSITION. ON PLANTING MATERIAL REMOVER WITH SR 66. ALL MEDICATIONS ADMINISTERED. ALL NEEDS MET.CALL LIGHT WITHIN REACH. CONTINUING TO MONITOR.
--- NOTE | 2017-06-16 19:40 | NUR ---
TELE/RN NOTES RECEIVED PT. LYING IN BED RESTING. PT. IS EASILY AROUSABLE TO NAME. AWAKE, ALERT AND ORIENTED X3. BREATHING EVEN AND UNLABORED ON 2LPM O2 VIA NC. NO SOB, RESPIRATORY DISTRESS OR COMPLAINTS OF PAIN NOTED AT THIS TIME. PT. WITH EXTERNAL MANAGER BODY PRESENT AND INTACT. CURRENT RHYTHM = SINUS RHYTHM HR 77. PT. WITH LEFT HAND 20 GAUGE PERIPHERAL IV PRESENT, PATENT AND INTACT ADMINISTERING TO PT. 1/2 NS @ 75 ML/HR. BED IN LOWEST POSITION, CALL LIGHT WITHIN REACH, SIDE RAILS UP X2, WILL CONTINUE TO MONITOR.
[2017-06-16 20:00] VITALS: BP 115/56
[2017-06-16 20:27] VITALS: BP 115/56
[2017-06-16] MEDS: SENNOSIDES 8.6 MG TABLET PO SCH (22:09)
[2017-06-16] MEDS: MIRTAZAPINE 15 MG TABLET PO SCH (22:09)
[2017-06-17 00:05] VITALS: BP 140/52
[2017-06-17 04:50] VITALS: BP 159/62
--- NOTE | 2017-06-17 06:34 | NUR ---
TELE/RN NOTES PT. IS LYING IN BED RESTING. BREATHING EVEN AND UNLABORED ON 2LPM O2 VIA NC. NO SOB, RESPIRATORY DISTRESS OR COMPLAINTS OF PAIN NOTED AT THIS TIME. PT. WITH EXTERNAL SALT MINER PRESENT AND INTACT. CURRENT RHYTHM = SINUS RHYTHM HR 72. PT. WITH LEFT HAND 20 GAUGE PERIPHERAL IV PRESENT, PATENT AND INTACT ADMINISTERING TO PT. 1/2 NS @ 75 ML/HR. ALL PT. NEEDS MET. PT. TURNED AND REPOSITIONED Q2H AND NEEDED. BED IN LOWEST POSITION, CALL LIGHT WITHIN REACH, SIDE RAILS UP X2, WILL ENDORSE TO DAYSHIFT NURSE FOR CONTINUITY OF CARE.
[2017-06-17] MEDS: BLOOD SUGAR DIAGNOSTIC 1 EACH STRIP IN SCH ×4 (06:49→22:11)
[2017-06-17] MEDS: IV 1/2NS 1000 ML 1,000 ML IV PRN ×2 (06:50→20:32)
[2017-06-17 07:41] VITALS: BP 162/63
--- NOTE | 2017-06-17 08:00 | NUR ---
MS RN NOTES PATIENT IN BED RESTING NO SOB OR ACUTE DISTRESS NOTED. BED IN LOW LOCKED POSITION. CALL LIGHT WITHIN REACH. PERIPHERAL IV INTACT PATENT. WILL CONTINUE TO MONITOR.
[2017-06-17] MEDS: FAMOTIDINE (20 MG) 20 MG TABLET PO SCH ×2 (09:01→17:18)
[2017-06-17] MEDS: AMIODARONE HCL 200 MG TABLET PO SCH ×2 (09:01→17:18)
[2017-06-17] MEDS: PREGABALIN 25 MG CAPSULE PO SCH ×2 (09:01→17:18)
[2017-06-17] MEDS: APIXABAN 2.5 MG TABLET PO SCH ×2 (09:01→17:19)
[2017-06-17 12:00] VITALS: BP 159/62
[2017-06-17] MEDS: INSULIN ASPART HUMALOG/NOVOLOG 100 UNIT/ML CARTRIDGE SQ PRN ×3 (12:53→22:11)
--- NOTE | 2017-06-17 15:00 | NUR ---
MS RN NOTES PATIENT SEEN AND EVALUATED BY DR. VINCENT ORDERS NOTED AND CARRIED OUT.
[2017-06-17 16:00] VITALS: BP 155/67
--- NOTE | 2017-06-17 19:15 | NUR ---
RN OPEN NOTES RECEIVED PATIENT RESTING IN BED, EASILY AROUSABLE TO NAME. A/O 3. NO SIGNS OF DISTRESS OR DISCOMFORT. BREATHING EVEN AND UNLABORED. IV ACCESS IN R HAND WITH 1/2 NS INFUSING, PATENT AND INTACT, NO SIGNS OF REDNESS OR INFILTRATION. BED IN LOW LOCKED POSITION WITH SIDE RAILS X2. CALL LIGHT WITHIN REACH. WILL CONTINUE TO MONITOR. Addendum: 06/17/17 at 2038 by BHARTI CASTILLO RN RECEIVED PATIENT ON 2LPM O2 VIA NC
--- NOTE | 2017-06-17 19:27 | NUR ---
MS RN NOTES PATIENT IN BED SLEEPING NO SOB OR ACUTE DISTRESS NOTED. ALL DUE MEDICATIONS ADMINISTERED. ALL NEEDS MET. WILL ENDORSE TO PM SHIFT ELISEO.
[2017-06-17 20:00] VITALS: BP 100/60
[2017-06-17] MEDS: SENNOSIDES 8.6 MG TABLET PO SCH (22:06)
[2017-06-17] MEDS: MIRTAZAPINE 15 MG TABLET PO SCH (22:06)
[2017-06-18] MEDS: BLOOD SUGAR DIAGNOSTIC 1 EACH STRIP IN SCH ×4 (06:45→21:00)
--- NOTE | 2017-06-18 06:55 | NUR ---
RN CLOSING NOTES PATIENT AWAKE IN BED. A/O X3. NO SIGNS OF DISTRESS OR DISCOMFORT. BREATHING EVEN AND UNLABORED. ON 2LPM O2 VIA NC. IV ACCESS IN L HAND WITH 1/2 NS INFUSING, PATENT AND INTACT, NO SIGNS OF REDNESS OR INFILTRATION. ALL NEEDS MET. REPOSITIONED Q2H. BED IN LOW LOCKED POSITION WITH SIDE RAILS X2. CALL LIGHT WITHIN REACH. WILL CONTINUE TO MONITOR.
--- NOTE | 2017-06-18 07:05 | NUR ---
MS Initial Notes: Patient resting in bed. Patient alert oriented x3. Non-labored breathing noted. Patient on 2 L nasal cannula. No signs of distress noted. IV site patent and intact. Bed at lowest/locked position. Call light within reach.
[2017-06-18 08:00] VITALS: BP_SYST 157; BP_DIAS 52; BP_DIAS 58
[2017-06-18 08:48] LABS: CALCIUM, SERUM 8.3 mg/dL (8.5-10.1); CARBON DIOXIDE 16 mmol/L (21-32); CHLORIDE 116 mmol/L (98-107); CREATININE 1.7 mg/dL (0.6-1.3); GLUCOSE 115 mg/dL (74-106); POTASSIUM 4.9 mmol/L (3.5-5.1); SODIUM SERUM 145 mmol/L (136-145); UREA NITROGEN, BLOOD 41 mg/dL (7-18)
[2017-06-18] MEDS: PREGABALIN 25 MG CAPSULE PO SCH ×2 (09:49→17:09)
[2017-06-18] MEDS: ATORVASTATIN 10 MG TABLET PO SCH (09:49)
[2017-06-18] MEDS: FAMOTIDINE (20 MG) 20 MG TABLET PO SCH ×2 (09:49→17:10)
[2017-06-18] MEDS: AMIODARONE HCL 200 MG TABLET PO SCH ×3 (09:50→17:10)
[2017-06-18] MEDS: APIXABAN 2.5 MG TABLET PO SCH ×2 (09:51→17:09)
[2017-06-18] MEDS: IV 1/2NS 1000 ML 1,000 ML IV PRN (11:15)
--- NOTE | 2017-06-18 12:43 | NUR ---
WOUND CARE CONSULT: PT PRESENTS WITH INCONTINENCE AND SACRAL SCARRING WITH SOME STAINING OF SKIN. LEFT HEEL CALLUS NOTED WITH SOME DRY SKIN. RECOMMENDATIONS MADE FOR SKIN PROTECTION. DISCUSSED WITH NURSING STAFF. WILL SEE SHIRAN. PT ON COMFORT GEL MATTRESS. IN AGREEMENT WITH PLAN OF CARE. Addendum: 06/18/17 at 1245 by GUSTAVO GALEAS WNDNU Amended: Links added.
[2017-06-18] MEDS ORDERED: Z GUARD REMEDY 2 OZ OINT TP PRN (13:00)
[2017-06-18] MEDS ORDERED: MINERAL OIL/PETROLATUM,WHITE 120 GM JAR TP PRN (13:00)
[2017-06-18] MEDS: Z GUARD REMEDY 2 OZ OINT TP SCH (13:34)
[2017-06-18] MEDS: ACETAMINOPHEN 325 MG TABLET PO PRN (13:38)
[2017-06-18 16:00] VITALS: BP_SYST 110; BP_SYST 154; BP_DIAS 62; BP_DIAS 64
[2017-06-18] MEDS: INSULIN ASPART HUMALOG/NOVOLOG 100 UNIT/ML CARTRIDGE SQ PRN ×2 (17:50→21:18)
--- NOTE | 2017-06-18 17:50 | NUR ---
MS RN notes: Blood sugar 116. Insulin held per MD orders
--- NOTE | 2017-06-18 19:17 | NUR ---
ms rn closing notes All needs provided, attended, and anticipated. Kept patient clean and comfortable in bed, call light with in patient reach, endorsed to next shift RN to continue care. No complaint of pain or discomfort at this time.
[2017-06-18 20:29] VITALS: BP 159/54
[2017-06-18] MEDS: MIRTAZAPINE 15 MG TABLET PO SCH (20:58)
[2017-06-18] MEDS: SENNOSIDES 8.6 MG TABLET PO SCH (20:58)
--- NOTE | 2017-06-18 22:00 | NUR ---
MS RN NOTE BLOOD SUGAR 168. 3 UNITS GIVEN.
[2017-06-18 22:59] VITALS: BP 159/54
[2017-06-19] MEDS: BLOOD SUGAR DIAGNOSTIC 1 EACH STRIP IN SCH ×4 (06:21→21:06)
--- NOTE | 2017-06-19 06:26 | NUR ---
MS RN NOTE PATIENT STABLE. ALL NEEDS MET AND ATTENDED TO. BLOOD SUGAR 103. NO COVERAGE NEEDED. WILL ENDORSE TO DAY SHIFT FOR ELISEO.
--- NOTE | 2017-06-19 07:25 | NUR ---
RN OPENING NOTES RECEIVED PT. IN BED A&OX1-2, CONFUSED. PT. HAD GARGLING WHILE BREATHING, CRACKLES THROUGHOUT LUNGS ON AUSCULTATION. CALLED RESPIRATORY THERAPY FOR AN EVALUATION, AND BREATHING TREATMENT. NO S/S OF DISTRESS. PT. HAS IV FLUIDS RUNNING AT 75 ML/HR. BED IS IN LOW POSITION, 2 SIDE RAILS UP, AND CALL LIGHT IS WITHIN REACH. WILL CONTINUE TO ASSESS AND MONITOR.
--- NOTE | 2017-06-19 07:30 | NUR ---
RN NOTES RESPIRATORY THERAPIST CAME IN FOR AN EVALUATION. PT. OXYGEN SATURATION WAS READING 100%. SUCTIONING WAS PERFORMED. NO S/S OF SOB.
[2017-06-19 08:00] VITALS: BP 114/51
[2017-06-19] MEDS: ATORVASTATIN 10 MG TABLET PO SCH (09:41)
[2017-06-19] MEDS: FAMOTIDINE (20 MG) 20 MG TABLET PO SCH ×2 (09:41→17:55)
[2017-06-19] MEDS: PREGABALIN 25 MG CAPSULE PO SCH ×2 (09:41→17:54)
[2017-06-19] MEDS: APIXABAN 2.5 MG TABLET PO SCH ×2 (09:42→17:55)
[2017-06-19] MEDS: AMIODARONE HCL 200 MG TABLET PO SCH ×2 (09:42→17:55)
[2017-06-19] MEDS: SODIUM BICARBONATE 650 MG TABLET PO SCH ×3 (09:42→17:56)
[2017-06-19] MEDS: Z GUARD REMEDY 2 OZ OINT TP SCH (09:46)
--- NOTE | 2017-06-19 11:00 | NUR ---
RN NOTES SPOKE WITH DR. VINCENT ON THE PHONE REGARDING PT.'S CONDITION. NOTIFIED MD ABOUT PT.'S LABS, AND CHANGE IN CONDITION THIS MORNING. PER MD NEW ORDERS GIVEN TO DISCONTINUE IV FLUIDS, AND TO ORDER NEW LABS, BMP TOMORROW.
--- NOTE | 2017-06-19 11:10 | NUR ---
CHARGE NOTES PER DR. VINCENT TO HOLD DC FOR NOW AND ANUSHKA KEEP PT FOR 1 MORE DAY. CM INFORMED.
[2017-06-19 16:00] VITALS: BP 124/97
[2017-06-19] MEDS: INSULIN ASPART HUMALOG/NOVOLOG 100 UNIT/ML CARTRIDGE SQ PRN ×2 (18:12→21:10)
--- NOTE | 2017-06-19 19:30 | NUR ---
RN CLOSING NOTES PT. IN BED A&OX2-3 WITH HEAD OF BED UP. BREATHING ON ROOM AIR UNLABORED ADN OXYGEN SATURATION AT 100%. NO S/S OF SOB. NO S/S OF ACUTE DISTRESS. PT. IV FLUIDS DISCONTINUED TODAY PER MD ORDER. PT. HAS A LEFT HAND SALINE LOCK, PATENT AND INTACT. BED IS IN LOW POSITION, 2 SIDE RAILS UP, AND CALL LIGHT IS WITHIN REACH. WILL ENDORSE REPORT TO NURSE PT. IS ON ASPIRATION PRECAUTIONS, NEEDS ASSISTANCE DURING FEEDING.
--- NOTE | 2017-06-19 19:30 | NUR ---
RN NOTES RECEIVED PATIENT IN BED AWAKE, AO X 2, ABLE TO MAKE NEEDS KNOWN. NO ACUTE DISTRESS NOTED. DENIES ANY PAIN AT THIS TIME. NO SYMPTOMS OF HYPER/HYPOGLYCEMIA. IV SITE PATENT, INTACT; FLUSHED. SAFETY REMINDERS GIVEN. ON LOW BED WITH BILATERAL UPPER SIDE RAILS UP. CALL LIGHT WITHIN EASY REACH. WILL CONTINUE TO MONITOR.
[2017-06-19 20:00] VITALS: BP 137/56
[2017-06-19] MEDS: MIRTAZAPINE 15 MG TABLET PO SCH (21:06)
[2017-06-19] MEDS: SENNOSIDES 8.6 MG TABLET PO SCH (21:06)
[2017-06-20] MEDS: ACETAMINOPHEN 325 MG TABLET PO PRN ×2 (06:19→15:47)
--- NOTE | 2017-06-20 06:30 | NUR ---
RN NOTES PATIENT IN BED AWAKE, RESPIRATIONS EVEN. NO SIGNS OF PAIN NOTED. NO SYMPTOMS OF HYPER/HYPOGLYCEMIA. DUE MEDS GIVEN WITH NO ASE NOTED. NEEDS ATTENDED. SAFETY PRECAUTIONS AND COMFORT MEASURES IN PLACE. WILL GIVE REPORT TO DAY SHIFT FOR CONTINUITY OF CARE.
[2017-06-20] MEDS: BLOOD SUGAR DIAGNOSTIC 1 EACH STRIP IN SCH ×2 (06:33→12:06)
[2017-06-20 07:10] LABS: CALCIUM, SERUM 8.1 mg/dL (8.5-10.1); CARBON DIOXIDE 19 mmol/L (21-32); CHLORIDE 117 mmol/L (98-107); CREATININE 1.5 mg/dL (0.6-1.3); GLUCOSE 120 mg/dL (74-106); POTASSIUM 4.6 mmol/L (3.5-5.1); SODIUM SERUM 146 mmol/L (136-145); UREA NITROGEN, BLOOD 32 mg/dL (7-18)
--- NOTE | 2017-06-20 07:20 | NUR ---
RN NOTES PT IS IN BED, RESTING COMFORTABLY ON RA, SATING 96%. PT SHOWS NO SIGNS OF DISTRESS OR PAIN AT THIS TIME. IV ON ON L HAND, INTACT AND PATENT, SL. SAFETY MEASURES ARE IN PLACE, CALL LIGHT IS IN REACH. WILL CONTINUE TO MONITOR.
[2017-06-20 08:00] VITALS: BP 165/74
[2017-06-20] MEDS: PREGABALIN 25 MG CAPSULE PO SCH (08:17)
[2017-06-20] MEDS: AMIODARONE HCL 200 MG TABLET PO SCH (08:17)
[2017-06-20] MEDS: SODIUM BICARBONATE 650 MG TABLET PO SCH ×2 (08:18→12:07)
[2017-06-20] MEDS: ATORVASTATIN 10 MG TABLET PO SCH (08:18)
[2017-06-20] MEDS: Z GUARD REMEDY 2 OZ OINT TP SCH (08:18)
[2017-06-20] MEDS: FAMOTIDINE (20 MG) 20 MG TABLET PO SCH (08:18)
[2017-06-20] MEDS: APIXABAN 2.5 MG TABLET PO SCH (08:24)
[2017-06-20] MEDS: INSULIN ASPART HUMALOG/NOVOLOG 100 UNIT/ML CARTRIDGE SQ PRN (12:11)
[2017-06-20 16:00] VITALS: BP 159/67
--- NOTE | 2017-06-20 16:45 | NUR ---
RN NOTES PT WAS DISCHARGED TO [facility] IN STABLE CONDITION BY AMBULANCE. DISCHARGE PAPERS AND BELONGINGS LIST WERE SIGNED. PT WAS EDUCATED TO FOLLOW UP WITH PCP, PT STATED SHE WOULD MAKE APPOINTMENT ON HER OWN. IV AND ID BAND WERE REMOVED. BELONGINGS WERE BROUGHT WITH PATIENT.
== END 2017-06-20 16:57 | DRG 682 ==
LOC: ER 14:27 → TELE 16:38 → MED 06-17 13:29
PROVIDERS: ADMIT Internal Medicine; ATTEND Internal Medicine
DX: N17.9 Acute kidney failure, unspecified (principal); G93.40 Encephalopathy, unspecified; E87.2 Acidosis; I95.9 Hypotension, unspecified; I13.0 Hypertensive heart and chronic kidney disease with heart failure and stage 1 through stage 4 chronic kidney disease, or unspecified chronic kidney disease; I42.9 Cardiomyopathy, unspecified; I50.32 Chronic diastolic (congestive) heart failure; E11.22 Type 2 diabetes mellitus with diabetic chronic kidney disease; G30.9 Alzheimer's disease, unspecified; F02.80 Dementia in other diseases classified elsewhere, unspecified severity, without behavioral disturbance, psychotic disturbance, mood disturbance, and anxiety; I48.0 Paroxysmal atrial fibrillation; N18.3 Chronic kidney disease, stage 3 (moderate); Z88.0 Allergy status to penicillin; Z88.2 Allergy status to sulfonamides; Z90.49 Acquired absence of other specified parts of digestive tract; Z95.1 Presence of aortocoronary bypass graft; K21.9 Gastro-esophageal reflux disease without esophagitis; I25.2 Old myocardial infarction; I25.10 Atherosclerotic heart disease of native coronary artery without angina pectoris; Z79.01 Long term (current) use of anticoagulants; E66.9 Obesity, unspecified; G31.84 Mild cognitive impairment of uncertain or unknown etiology; Z68.29 Body mass index [BMI] 29.0-29.9, adult; I27.2 Other secondary pulmonary hypertension; I35.0 Nonrheumatic aortic (valve) stenosis; I34.2 Nonrheumatic mitral (valve) stenosis
CPT/HCPCS: 36415; 71010-TC; 76770-TC; 80048-TC; 82962-TC; 83880; 85025-TC; 87040-TC; 87081-TC; 92526; 92611-TC; 93307-TC; A4606; J1815; J3490; J7030; J7040

== ENCOUNTER 2017-09-29 15:11 | Inpatient (IN) | payer MEDICARE, MEDICAID ==
[~2017-09-29] VITALS: Ht 157.5 cm; Wt 77.1 kg
[~2017-09-29 15:11] MED LIST changes: +ACET-868 PO; +ALBI30PE SQ; +AMIO200T2 PO; +APIX2.5T PO; -ASPI-991 PO; +BISA10SU8 RC; -CITA20TA11 PO; +FURO-145 PO; +INSU100V11 SQ; +IPRA3AMP IH; +LOSA25TA13 PO; -LOSA50TA21 PO; +MAGN400O6 PO; -METF500T4 PO; +MIRT15TA PO; +NA P133E RC; +SENN-167 PO; +SITA50TA PO; +TRAM50TA2 PO
--- NOTE | 2017-09-29 15:15 | NUR ---
BIBRA 86 FROM [facility] C/O PAIN TO BILATERAL LOWER EXTREMITIES PAIN, PITTING EDEMA +1. RESP IS EVEN AND UNLABORED WITH NAD NOTED. SKIN IS WARM AND DRY. DR BATISTA AT FOR EVAL.
[2017-09-29] MEDS ORDERED: ATOR20TA PO (15:39)
[2017-09-29 15:51] LABS: BASOPHILS # (AUTO) 0.1 /CMM (0.0-0.2); BASOPHILS % (AUTO) 0.6 % (0.0-2.0); EOSINOPHILS # (AUTO) 0.1 /CMM (0.0-0.7); EOSINOPHILS % (AUTO) 0.8 % (0.0-6.0); HEMATOCRIT 32 % (33-45); HEMOGLOBIN 10.4 g/dL (11.5-14.8); LYMPHOCYTES # (AUTO) 1.2 /CMM (0.8-4.8); LYMPHOCYTES % (AUTO) 9.9 % (20.0-44.0); MEAN CORPUSCULAR HEMOGLOBIN 29 PG (26.0-33.0); MEAN CORPUSCULAR HGB CONC 33 g/dl (31.0-36.0); MEAN CORPUSCULAR VOLUME 86 fL (82-100); MONOCYTES # (AUTO) 0.6 /CMM (0.1-1.30); MONOCYTES % (AUTO) 4.7 % (2.0-12.0); NEUTROPHILS # (AUTO) 9.9 /CMM (1.8-8.9); PLATELET COUNT (AUTO) 216 /CMM (150-450); RDW COEFFICIENT OF VARIATION 14.6 (11.5-15.0); RED BLOOD CELL COUNT(AUTO) 3.66 MIL/uL (4.0-5.2); WHITE BLOOD COUNT (AUTO) 11.9 K/uL (4.3-11.0)
[2017-09-29 16:09] LABS: ALANINE AMINOTRANSFERASE 17 U/L (12-78); ALBUMIN 2.8 g/dL (3.4-5.0); ALKALINE PHOSPHATASE 62 U/L (46-116); ASPARTATE AMINOTRANSFERASE 14 U/L (15-37); BILIRUBIN,TOTAL 0.2 mg/dL (0.2-1.0); CALCIUM, SERUM 8.3 mg/dL (8.5-10.1); CARBON DIOXIDE 25 mmol/L (21-32); CHLORIDE 104 mmol/L (98-107); CREATININE 2.2 mg/dL (0.6-1.3); GLUCOSE 136 mg/dL (74-106); INR 1.05 (0.87-1.13); POTASSIUM 5.1 mmol/L (3.5-5.1); SODIUM SERUM 136 mmol/L (136-145); TOTAL PROTEIN, SERUM 6.8 g/dL (6.4-8.2); UREA NITROGEN, BLOOD 60 mg/dL (7-18)
[2017-09-29 16:14] LABS: TROPONIN I < 0.017 ng/mL (0.00-0.056)
--- NOTE | 2017-09-29 17:20 | NUR ---
TELE [phone]
--- NOTE | 2017-09-29 18:02 | NUR ---
PT TRANSPORTED TO [facility]
[2017-09-29 19:00] VITALS: BP 130/57
--- NOTE | 2017-09-29 19:00 | NUR ---
APPLE PICKING SUPERVISOR NOTES RECEIVED PT IN BED, AWAKE, ALERT AND ORIENTED X 3, NOTED WITH FORGETFULNESS, ABLE TO MAKE NEEDS KNOWN. NOTED PT WITH NO SOB, BREATHING EVEN AND UNLABORED, IN NO ACUTE DISTRESS AT THIS TIME. ADMITTED UNDER TELE WITH SR @70 WITH FIRST DEG AV BLOCK. ORIENTED PT TO FACILITY, ROOM, CALL LIGHT AND USE OF CALL LIGHT, PT VERBALIZED UNDERSTANDING. ALL PATIENT'S NEEDS ATTENDED TO. PLACED PT'S CALL LIGHT WITHIN EASY REACH. WILL CONTINUE TO MONITOR.
--- NOTE | 2017-09-29 19:00 | NUR ---
RN NOTES DR. VINCENT PAGED FOR ADMISSION ORDERS. AWAITING FOR CALL BACK.
[2017-09-29 20:00] VITALS: BP 130/57
--- NOTE | 2017-09-29 20:40 | NUR ---
RN NOTES RECEIVED ADMISSION ORDERS FROM DR. VINCENT. ALL ORDERS NOTED AND CARRIED OUT.
[2017-09-29] MEDS ORDERED: HYDROMORPHONE 1 MG/1 ML DISP.SYRIN IV PRN ×2 (21:00)
[2017-09-29] MEDS ORDERED: CEFTRIAXONE 1 G VIAL IM SCH (21:00)
[2017-09-29] MEDS ORDERED: DEXTROSE 50%-WATER 50 ML DISP.SYRIN IV PRN ×2 (21:00)
[2017-09-29] MEDS ORDERED: INSULIN REGULAR, HUMAN 100 UNIT/ML 3 ML VIAL SQ PRN (21:00)
[2017-09-29] MEDS ORDERED: CEFTRIAXONE 1 G VIAL ONE (21:00)
[2017-09-29] MEDS ORDERED: INSULIN ASPART/LISPRO 100 UNIT/ML CARTRIDGE SQ PRN (21:00)
--- NOTE | 2017-09-29 21:34 | NUR ---
RN NOTE PATIENT WITH COMPLAINT OF PAIN ON LEFT LEG, DR. VINCENT WITH ORDER OF DILAUDID PRN FOR MOD AND SEVERE PAIN. DILAUDID UNAVAILABLE AT THIS TIME. RECEIVED NEW ORDER FROM DR. VINCENT TO GIVE MORPHINE PRN IV PUSH AT THIS TIME AND TO DISCONTINUE MORPHINE ONCE AVAILABLE. ALL ORDERS NOTED AND CARRIED OUT. DUE MEDICATION GIVEN TO PATIENT, NEEDED. WILL CONTINUE TO MONITOR.
[2017-09-29] MEDS ORDERED: MORPHINE SULFATE INJ 2 MG/ML DISP.SYRIN ONE (21:37)
[2017-09-29] MEDS: MORPHINE SULFATE INJ 2 MG/ML DISP.SYRIN IV PRN (21:39)
[2017-09-29] MEDS ORDERED: CEFTRIAXONE 1 G VIAL IV SCH (22:00)
[2017-09-29] MEDS ORDERED: BLOOD SUGAR DIAGNOSTIC 1 EACH STRIP IN SCH (22:00)
[2017-09-29] MEDS ORDERED: ATORVASTATIN 10 MG TABLET ONE (22:15)
[2017-09-29] MEDS ORDERED: MIRTAZAPINE 15 MG TABLET ONE (22:16)
[2017-09-29] MEDS: MIRTAZAPINE 15 MG TABLET PO SCH (22:22)
[2017-09-29] MEDS: BLOOD SUGAR DIAGNOSTIC 1 EACH STRIP IN SCH (22:23)
[2017-09-29] MEDS: ATORVASTATIN 10 MG TABLET PO SCH (22:23)
[2017-09-29] MEDS: INSULIN DETEMIR 100 UNIT/ML CARTRIDGE SQ SCH (22:34)
[2017-09-29] MEDS ORDERED: INSULIN LISPRO/ASPART 100 UNIT/ML CARTRIDGE SQ ONE (22:34)
[2017-09-30] VITALS: BP 135/49
[2017-09-30 04:00] VITALS: BP 141/57
[2017-09-30] MEDS ORDERED: MORPHINE SULFATE INJ 2 MG/ML DISP.SYRIN ONE (05:40)
[2017-09-30] MEDS: MORPHINE SULFATE INJ 2 MG/ML DISP.SYRIN IV PRN ×3 (05:42→17:52)
[2017-09-30] MEDS: BLOOD SUGAR DIAGNOSTIC 1 EACH STRIP IN SCH ×4 (06:52→22:08)
--- NOTE | 2017-09-30 06:52 | NUR ---
RN NOTE ACCUCHECK DONE WITH BLOOD SUGAR @ 72 MG/DL. NO INSULIN GIVEN PER SLIDING SCALE.
--- NOTE | 2017-09-30 07:00 | NUR ---
RN CLOSING NOTES PATIENT IN BED, ASLEEP BUT EASILY AROUSABLE, ALERT AND ORIENTED X 2-3, VERBALLY RESPONSIVE AND ABLE TO MAKE NEEDS KNOWN. NO C/O PAIN AT THIS TIME, UNDER TELEMETRY WITH SR WITH 1ST DEG AVB @70. ALL PATIENT'S NEEDS ATTENDED TO. PLACED BED IN LOW POSITION, LOCKED IN PLACE.
--- NOTE | 2017-09-30 07:59 | NUR ---
HOST/HOSTESS HEAD OPENING NOTES PT A&0X2-3, SPEAKING VERY QUITE BUT COMMUNICATING ADEQUATELY. PT WITH ROOM AIR AND REPORTS MINOR SOB, NO OBVIOUS S/S OF RESPIRATORY DISTRESS. PT DECLINES 02 SUPP. HOB ELEVATED. LUNGS AUSCULTATED DIMINISHED IN LOWER LOBES. PT REPORTING SOME PAIN BUT CANNOT SPECIFY WHERE. PT WITH IVC AT L SHOULDER, INTACT AND SALINE FLUSHED PATENT. PT BRIEFED ON TODAY'S POC AND IS WITHOUT CONCERN OR COMPLAINT AT THIS TIME.
[2017-09-30 08:00] VITALS: BP 165/58
[2017-09-30] MEDS ORDERED: MAGNESIUM HYDROXIDE 30 ML UDC PO PRN (08:30)
[2017-09-30] MEDS ORDERED: NA PHOS,M-B/NA PHOS,DI-BA 1 EA ENEMA RC PRN (08:30)
[2017-09-30] MEDS ORDERED: BISACODYL SUPP (10 MG) 10 MG/SUPP.RECT SUPP.RECT RC PRN (08:30)
[2017-09-30] MEDS ORDERED: ACETAMINOPHEN 325 MG TABLET PO PRN (08:30)
[2017-09-30] MEDS ORDERED: AMIODARONE HCL 200 MG TABLET PO SCH (09:00)
[2017-09-30] MEDS: APIXABAN 2.5 MG TABLET PO SCH ×2 (10:19→18:08)
[2017-09-30] MEDS: FUROSEMIDE 20 MG TABLET PO SCH (10:19)
[2017-09-30] MEDS: LOSARTAN POTASSIUM 25 MG TABLET PO SCH ×2 (10:20→18:09)
[2017-09-30] MEDS: FAMOTIDINE (20 MG) 20 MG TABLET PO SCH ×2 (10:21→17:53)
[2017-09-30] MEDS: PREGABALIN 25 MG CAPSULE PO SCH ×2 (10:21→17:53)
[2017-09-30] MEDS: INSULIN DETEMIR 100 UNIT/ML CARTRIDGE SQ SCH ×2 (10:50→22:10)
--- NOTE | 2017-09-30 11:00 | NUR ---
ENTRY LEVEL TRUCK DRIVER NOTES. PT INDICATING PAIN, PT REQUESTING PAIN CONTROL. PRN 1MG MORPH ADMINISTERED.
--- NOTE | 2017-09-30 11:30 | NUR ---
MS NOTES. TELE D/C.
--- NOTE | 2017-09-30 13:00 | NUR ---
RN NOTES. MD VINCENT CONTACTED ON BEHALF OF PHARMACY REGARDING RESP THERAPIES. MD REQUESTING RESP THERAPY COMMENCED, ORDER PLACED.
--- NOTE | 2017-09-30 13:47 | NUR ---
RN NOTES. LUNCH INSULIN ADMINISTERED LATE R/T LACK OF INSULIN. PHARMACY CALLEDX2. DUMBWAITER USED. WILL ADMIN
[2017-09-30] MEDS: INSULIN ASPART/LISPRO 100 UNIT/ML CARTRIDGE SQ PRN ×2 (13:55→22:11)
[2017-09-30 16:00] VITALS: BP 152/46
--- NOTE | 2017-09-30 18:15 | NUR ---
RN NOTES. PASTORAL COUNSELOR SUPPLIED BP RE CHECKED FOR ACCURACY, MANUALLYX2. PT BP 155/70.
--- NOTE | 2017-09-30 18:16 | NUR ---
RN CLOSING NOTES. PT REMAINS A&02-3 WITH PERIODS OF CONFUSION, ESPECIALLY AFTER WAKING. PT PREDOMINANTLY NON VERBAL, WILL TALK AT REGULAR VOLUME WHEN ENCOURAGED AND GIVEN TIME. PT PROVIDED O2 VIA NC AT 2LPM FOR LOW O2 SATURATION OF 93% AND PT INDICATING SOB AT 1600. PT VERBALLY INDICATING GENERALIZED PAIN AND PAIN TO LEFT LEG. PT WITH IVC AT LEFT SHOULDER G#22 INTACT AND SL. BED IN LOWEST LOCKED POSITION WITH CALL STEEN WITHIN REACH. ALL DAY SHIFT DUTIES ATTENDED TO, WILL ENDORSE TO NIGHT NURSE.
--- NOTE | 2017-09-30 19:25 | NUR ---
RN OPEN NOTES RECEIVED PATIENT AWAKE IN BED. A/O X2. NO SIGNS OF DISTRESS OR DISCOMFORT. BREATHING EVEN AND UNLABORED. IV ACCESS IN LEFT SHOULDER, PATENT AND INTACT, NO SIGNS OF INFILTRATION OR REDNESS. BED IN LOW LOCKED POSITION WITH SIDE RAILS X2. CALL LIGHT WITHIN REACH. WILL CONTINUE TO MONITOR.
[2017-09-30 20:00] VITALS: BP_SYST 129; BP_DIAS 40; BP_DIAS 70
--- NOTE | 2017-09-30 20:40 | NUR ---
RN NOTES P.C TO DR. VINCENT ON-CALL: SPOKE WITH MARJ HOLLAND FLANGING MACHINE OPERATOR REGARDING PATIENT ELEVATED TEMP OF 102.5. NEW ORDERS GIVEN FOR BLOOD CULTURE X2. VANCO 1GM IV WITH PHARMACY TO DOSE AND URINE CX. WILL CARRYOUT ORDERS AND CONTINUE TO MONITOR.
[2017-09-30] MEDS ORDERED: FEE PK DOSING 1 MIN EA MC ONE (20:56)
[2017-09-30] MEDS ORDERED: CEFTRIAXONE 1 G VIAL IV SCH (21:00)
[2017-09-30 21:52] LABS: APPEARANCE,URINE SL CLOUDY (CLEAR); BILIRUBIN,URINE NEGATIVE (NEGATIVE); BLOOD, URINE 2+ Ery/uL (NEGATIVE); COLOR,URINE YELLOW (YELLOW); KETONES,URINE NEGATIVE (NEGATIVE); LEUKOCYTE ESTERASE ,URINE 1+ (NEGATIVE); NITRITE, URINE POSITIVE (NEGATIVE); PROTEIN,URINE 2+ mg/dl (NEGATIVE); UGLUCOSE NEGATIVE (NEGATIVE); UROBILINOGEN,URINE 0.2 EU/dL (0.2)
[2017-09-30 21:55] LABS: BACTERIA,URINE Moderate /HPF (None Seen); SQUAMOUS EPITHELIAL CELL,UR Few /HPF (None Seen)
[2017-09-30] MEDS: CEFTRIAXONE 1 G in IV D5W 50 ML IV SCH (21:59)
[2017-09-30] MEDS ORDERED: Medication Not On Formulary EA (Atorvastatin Calcium (Lipitor) 20 MG) PO SCH (22:00)
--- NOTE | 2017-09-30 22:00 | NUR ---
RN NOTES PATIENT REFUSED TYLENOL FOR TEMP OF 102.5, PATIENT STATES TYLENOL UPSETS HER STOMACH. COOLING MEASURES WERE INITIATED AND PATIENT CURRENT TEMP IS 100.2. WILL CONTINUE TO MONITOR.
[2017-09-30] MEDS: ATORVASTATIN 10 MG TABLET PO SCH (22:15)
[2017-09-30] MEDS: MIRTAZAPINE 15 MG TABLET PO SCH (22:15)
[2017-09-30] MEDS: SENNOSIDES 8.6 MG TABLET PO SCH (22:15)
[2017-09-30] MEDS: VANCOMYCIN 1 GM in IV D5W 250 ML IV SCH (22:44)
[2017-09-30] MEDS: ALBUTEROL FS 2.5 MG/0.5 ML VIAL.NEB NEB SCH (22:46)
[2017-09-30] MEDS: IPRATROPIUM NEB FS 0.5 MG/2.5 ML AMPUL.NEB NEB SCH (22:46)
[2017-10-01] MEDS: ALBUTEROL FS 2.5 MG/0.5 ML VIAL.NEB NEB SCH ×6 (03:28→23:58)
[2017-10-01] MEDS: IPRATROPIUM NEB FS 0.5 MG/2.5 ML AMPUL.NEB NEB SCH ×6 (03:28→23:58)
[2017-10-01] MEDS: BLOOD SUGAR DIAGNOSTIC 1 EACH STRIP IN SCH ×4 (06:35→21:47)
[2017-10-01] MEDS: MORPHINE SULFATE INJ 2 MG/ML DISP.SYRIN IV PRN ×3 (06:41→17:48)
--- NOTE | 2017-10-01 06:41 | NUR ---
RN NOTES ADMINISTERED MORPHINE 1MG ORDERED FOR PAIN 7/10 IN L LEG. VSS. WILL CONTINUE TO MONITOR.
--- NOTE | 2017-10-01 06:57 | NUR ---
RN CLOSING NOTES PATIENT AWAKE IN BED. A/O X2. NO SIGNS OF DISTRESS OR DISCOMFORT. BREATHING EVEN AND UNLABORED. IV ACCESS IN LEFT SHOULDER, PATENT AND INTACT, NO SIGNS OF INFILTRATION OR REDNESS. ALL NEEDS MET. NO SIGNIFICANT CHANGES THROUGH THE NIGHT. REPOSITION PATIENT Q2H. BED IN LOW LOCKED POSITION WITH SIDE RAILS X2. CALL LIGHT WITHIN REACH. WILL ENDORSE TO AM SHIFT FOR ELISEO.
--- NOTE | 2017-10-01 07:45 | NUR ---
MS RN: INITIAL NOTE RECEIVED PT A/OX2. MS. INCONTINENT AND USES DIAPER. ON ROOM AIR. SATING AT 95%. NO DISTRESS NOTED. NO SOB NOTED. PAIN CONTROLLED WITH PAIN MEDICATIONS. ON PUREED CCHO DIET. L SHOULDER #22 S/L. SITE CLEAR AND PATENT. NO IV FLUIDS RUNNING. RESTING COMFORTABLY IN BED. CALL LIGHT WITHIN REACH.
[2017-10-01 08:00] VITALS: BP 112/50
[2017-10-01] MEDS: INSULIN DETEMIR 100 UNIT/ML CARTRIDGE SQ SCH ×2 (09:00→21:00)
[2017-10-01] MEDS: FAMOTIDINE (20 MG) 20 MG TABLET PO SCH ×2 (09:04→16:39)
[2017-10-01] MEDS: PREGABALIN 25 MG CAPSULE PO SCH ×2 (09:04→16:39)
[2017-10-01] MEDS: AMIODARONE HCL 200 MG TABLET PO SCH (09:04)
[2017-10-01] MEDS: APIXABAN 2.5 MG TABLET PO SCH ×2 (09:04→16:39)
[2017-10-01] MEDS: FUROSEMIDE 20 MG TABLET PO SCH (09:05)
[2017-10-01] MEDS: LOSARTAN POTASSIUM 25 MG TABLET PO SCH ×2 (09:05→16:39)
--- NOTE | 2017-10-01 09:27 | NUR ---
NOTIFIED MD VINCENT ABOUT SWELLING ON R. FOOT AND REDNESS AND WARM TO TOUCH ON ANKLE. MD VINCENT STATED HE WILL LOOK AT IT WHEN HE COMES IT. NO NEW ORDERS. WILL CONTINUE TO MONITOR.
[2017-10-01 16:00] VITALS: BP 102/42
--- NOTE | 2017-10-01 18:53 | NUR ---
MS RN: CLOSING NOTE PT TOOK ALL MEDICATIONS ON TIME. NO ADVERSE REACTIONS NOTED. NO DISTRESS NOTED. PAIN CONTROLLED WITH PAIN MEDICATIONS. BED REST. TURNED AND REPOSITIONED Q 2HOURS. DIAPER AND INCONTINENT. L SHOULDER IV #22. NO IV FLUIDS RUNNING. PATENT. INSULIN COVERAGE GIVEN PER SLIDING SCALE. RESTING COMFORTABLY IN BED. CALL LIGHT WITHIN REACH.
--- NOTE | 2017-10-01 19:45 | NUR ---
MS RN INITIAL NOTE PT IS IN BED RESTING, A/O X2. DENIES PAIN. INCONTINENT AND USES DIAPER. NO SIGNS OF SOB OR DISTRESS, BREATHING EVENLY AND UNLABORED ON RA. IV ACCESS IS INTACT AND PATENT. BED IS IN LOW AND LOCKED POSITION, WILL CONTINUE TO MONITOR PT.
[2017-10-01 19:54] VITALS: BP 105/41
[2017-10-01] MEDS: CEFTRIAXONE 1 G in IV D5W 50 ML IV SCH (20:43)
[2017-10-01] MEDS: MIRTAZAPINE 15 MG TABLET PO SCH (21:47)
[2017-10-01] MEDS: VANCOMYCIN 1 GM in IV D5W 250 ML IV SCH (21:47)
[2017-10-01] MEDS: SENNOSIDES 8.6 MG TABLET PO SCH (21:47)
[2017-10-01] MEDS: ATORVASTATIN 10 MG TABLET PO SCH (21:47)
--- NOTE | 2017-10-01 22:00 | NUR ---
MS RN NOTE INSULIN HELD, PT BS 115
[2017-10-02] MEDS: IPRATROPIUM NEB FS 0.5 MG/2.5 ML AMPUL.NEB NEB SCH ×6 (04:13→23:57)
[2017-10-02] MEDS: ALBUTEROL FS 2.5 MG/0.5 ML VIAL.NEB NEB SCH ×6 (04:13→23:57)
--- NOTE | 2017-10-02 06:19 | NUR ---
MS RN CLOSING NOTES PT IS IN BED RESTING, DENIES PAIN. NO SIGNS OF SOB OR DISTRESS. BREATHING EVENLY AND UNLABORED ON RA. ALL NEEDS WERE ANTICIPATED AND MET. BED IS IN LOW AND LOCKED POSITION, CALL LIGHT WITHIN REACH. WILL ENDORSE TO DAY SHIFT
[2017-10-02] MEDS: BLOOD SUGAR DIAGNOSTIC 1 EACH STRIP IN SCH ×4 (06:30→21:29)
[2017-10-02 07:30] LABS: CALCIUM, SERUM 8.3 mg/dL (8.5-10.1); CARBON DIOXIDE 22 mmol/L (21-32); CHLORIDE 105 mmol/L (98-107); CREATININE 2.8 mg/dL (0.6-1.3); GLUCOSE 110 mg/dL (74-106); POTASSIUM 4.9 mmol/L (3.5-5.1); SODIUM SERUM 139 mmol/L (136-145); UREA NITROGEN, BLOOD 72 mg/dL (7-18)
--- NOTE | 2017-10-02 07:33 | NUR ---
MS RN: INITIAL NOTE RECEIVED PT A/OX2. ON ROOM AIR SATING AT 95%. MS. INCONTINENT USES DIAPER. BEDREST. ON PUREED DIET CCHO. NO DISTRESS NOTED. NO SOB NOTED. NO PAIN NOTED. L SHOULDER IV SL. SITE CLEAR AND PATENT. RESTING COMFORTABLY IN BED. CALL LIGHT WITHIN REACH.
[2017-10-02 08:00] VITALS: BP 115/45
[2017-10-02] MEDS: INSULIN DETEMIR 100 UNIT/ML CARTRIDGE SQ SCH ×2 (09:00→21:53)
[2017-10-02] MEDS: LOSARTAN POTASSIUM 25 MG TABLET PO SCH ×2 (09:09→17:00)
[2017-10-02] MEDS: AMIODARONE HCL 200 MG TABLET PO SCH (09:09)
[2017-10-02] MEDS: PREGABALIN 25 MG CAPSULE PO SCH ×2 (09:10→17:26)
[2017-10-02] MEDS: FUROSEMIDE 20 MG TABLET PO SCH (09:10)
[2017-10-02] MEDS: FAMOTIDINE (20 MG) 20 MG TABLET PO SCH ×2 (09:10→17:26)
[2017-10-02] MEDS: APIXABAN 2.5 MG TABLET PO SCH ×2 (09:10→17:26)
[2017-10-02] MEDS: INSULIN ASPART/LISPRO 100 UNIT/ML CARTRIDGE SQ PRN ×3 (12:11→21:55)
[2017-10-02 17:56] VITALS: BP 97/40
[2017-10-02 18:40] VITALS: BP 98/40
--- NOTE | 2017-10-02 18:42 | NUR ---
MS RN: CLOSING NOTE PT TOOK ALL MEDICATIONS ON TIME. NO ADVERSE REACTIONS NOTED. NO PAIN NOTED. NO SOB NOTED. A/OX2. MS. INCONTINENT AND USES DIAPER. L SHOULDER IV #22 SL. SITE CLEAR AND PATENT. INSULIN GIVEN PER SLIDING SCALE. RESTING COMFORTABLY IN BED. CALL LIGHT WITHIN REACH.
--- NOTE | 2017-10-02 19:30 | NUR ---
RN NOTES RECEIVED PATIENT IN BED AWAKE, AO X 2, ABLE TO MAKE NEEDS KNOWN. NO ACUTE DISTRESS NOTED. DENIES ANY PAIN AT THIS TIME. IV SITE PATENT, INTACT; FLUSHED. SAFETY REMINDERS GIVEN. ON LOW BED WITH BILATERAL UPPER SIDE RAILS UP. CALL BUTTON WITHIN EASY REACH. WILL CONTINUE TO MONITOR.
[2017-10-02 20:00] VITALS: BP 122/44
[2017-10-02 20:07] VITALS: BP 122/44
[2017-10-02] MEDS: MIRTAZAPINE 15 MG TABLET PO SCH (21:30)
[2017-10-02] MEDS: ATORVASTATIN 10 MG TABLET PO SCH (21:30)
[2017-10-02] MEDS: SENNOSIDES 8.6 MG TABLET PO SCH (21:30)
[2017-10-02] MEDS: CEFTRIAXONE 1 G in IV D5W 50 ML IV SCH (21:30)
[2017-10-02] MEDS: VANCOMYCIN 1 GM in IV D5W 250 ML IV SCH (22:00)
[2017-10-03] MEDS: ALBUTEROL FS 2.5 MG/0.5 ML VIAL.NEB NEB SCH ×3 (02:41→11:30)
[2017-10-03] MEDS: IPRATROPIUM NEB FS 0.5 MG/2.5 ML AMPUL.NEB NEB SCH ×3 (02:41→11:30)
--- NOTE | 2017-10-03 06:30 | NUR ---
RN NOTES PATIENT ASLEEP, EASILY AROUSABLE. RESPIRATIONS EVEN. NO SIGNS OF PAIN NOTED. NO SYMPTOMS OF HYPER/HYPOGLYCEMIA. DUE MEDS GIVEN WITH NO ASE NOTED. NEEDS ATTENDED. KEPT CLEAN AND DRY. SAFETY PRECAUTIONS AND COMFORT MEASURES IN PLACE. WILL GIVE REPORT TO DAY SHIFT FOR CONTINUITY OF CARE.
[2017-10-03] MEDS: BLOOD SUGAR DIAGNOSTIC 1 EACH STRIP IN SCH ×2 (06:43→12:19)
[2017-10-03 07:11] LABS: CALCIUM, SERUM 8.6 mg/dL (8.5-10.1); CARBON DIOXIDE 22 mmol/L (21-32); CHLORIDE 104 mmol/L (98-107); GLUCOSE 120 mg/dL (74-106); POTASSIUM 4.9 mmol/L (3.5-5.1); SODIUM SERUM 137 mmol/L (136-145); UREA NITROGEN, BLOOD 79 mg/dL (7-18)
--- NOTE | 2017-10-03 07:41 | NUR ---
RN OPENING NOTES RECEIVED PT. IN BED SLEEPING. BREATHING UNLABORED, AND EVENLY ON ROOM AIR. NO S/S OF ACUTE DISTRESS. IV FLUIDS NEAR BEDSIDE. BED IS IN LOWEST, AND LOCKED POSITION. 2 SIDE RAILS UP, AND CALL LIGHT WITHIN REACH. WILL CONTINUE TO ASSESS AND MONITOR.
[2017-10-03 08:00] VITALS: BP 112/59
[2017-10-03] MEDS: FAMOTIDINE (20 MG) 20 MG TABLET PO SCH (09:01)
[2017-10-03] MEDS: PREGABALIN 25 MG CAPSULE PO SCH (09:01)
[2017-10-03 09:02] VITALS: BP 146/92
[2017-10-03] MEDS: LOSARTAN POTASSIUM 25 MG TABLET PO SCH (09:02)
[2017-10-03] MEDS: AMIODARONE HCL 200 MG TABLET PO SCH (09:02)
[2017-10-03] MEDS: MORPHINE SULFATE INJ 2 MG/ML DISP.SYRIN IV PRN (09:06)
[2017-10-03] MEDS: APIXABAN 2.5 MG TABLET PO SCH (09:17)
[2017-10-03] MEDS: INSULIN DETEMIR 100 UNIT/ML CARTRIDGE SQ SCH (09:23)
--- NOTE | 2017-10-03 11:57 | NUR ---
PATIENT REFUSED RESP. TREATMENT WITH NO DISTRESS NOTED. PATIENT STATES THAT SHE FEELS NUMB. XX24=69-49% ON ROOM AIR. NURSE NOTIFIED.
[2017-10-03] MEDS: INSULIN ASPART/LISPRO 100 UNIT/ML CARTRIDGE SQ PRN (12:21)
--- NOTE | 2017-10-03 16:15 | NUR ---
RN DISHCARGE NOTE PT. WAS DISCHARGED IN MEDICALLY STABLE CONDITION. PT. WAS TAKEN TO [facility] BY AMBULANCE CREW WITH DISCHARGE PACKET AND BELONGINGS. REPORT WAS GIVEN TO MAKEDA RENTERIA. BELONGINGS LIST WERE CHECKED AND SIGNED. ID BAND AND IV WAS REMOVED WITHOUT COMPLICATIONS.
[2017-10-03] MEDS ORDERED: VANCOMYCIN 1 GM in IV D5W 250 ML IV SCH (22:00)
[2017-10-05] MEDS ORDERED: ALBIGLUTIDE 30 MG SQ SCH (08:30)
== END 2017-10-03 16:15 | DRG 602 ==
LOC: ER 15:14 → TELE 18:09 → MED 09-30 10:00
PROVIDERS: ADMIT Internal Medicine; ATTEND Internal Medicine
DX: L03.115 Cellulitis of right lower limb (principal); J18.9 Pneumonia, unspecified organism; N17.9 Acute kidney failure, unspecified; I11.0 Hypertensive heart disease with heart failure; E11.22 Type 2 diabetes mellitus with diabetic chronic kidney disease; I48.0 Paroxysmal atrial fibrillation; I50.30 Unspecified diastolic (congestive) heart failure; I13.0 Hypertensive heart and chronic kidney disease with heart failure and stage 1 through stage 4 chronic kidney disease, or unspecified chronic kidney disease; N18.3 Chronic kidney disease, stage 3 (moderate); D63.8 Anemia in other chronic diseases classified elsewhere; E66.9 Obesity, unspecified; E78.5 Hyperlipidemia, unspecified; F03.90 Unspecified dementia, unspecified severity, without behavioral disturbance, psychotic disturbance, mood disturbance, and anxiety; I25.10 Atherosclerotic heart disease of native coronary artery without angina pectoris; Z90.49 Acquired absence of other specified parts of digestive tract; Z95.1 Presence of aortocoronary bypass graft; Z88.0 Allergy status to penicillin; Z88.2 Allergy status to sulfonamides; Z87.440 Personal history of urinary (tract) infections; Z80.0 Family history of malignant neoplasm of digestive organs; Z79.899 Other long term (current) drug therapy; Z79.4 Long term (current) use of insulin; Z79.01 Long term (current) use of anticoagulants; K59.00 Constipation, unspecified; I25.2 Old myocardial infarction
CPT/HCPCS: 36415; 71010-TC; 80048-TC; 80076-TC; 80202-TC; 81000-TC; 82962-TC; 83880; 84484-TC; 85025-TC; 85730-TC; 87040-TC; 87081-TC; 87086-TC; 87400; 93970-TC; A4606; J0696; J1815; J2270; J3370; J7040; J7060; Z7610

== ENCOUNTER 2018-04-24 08:25 | Inpatient (IN) | payer MEDICAID, MEDICARE ==
[~2018-04-24] VITALS: Ht 157.5 cm; Wt 65.8 kg
[~2018-04-24 08:25] MED LIST changes: +ACET-868 GT; -ACET-868 PO; -AMIO200T2 PO; +AMIO200T4 PO; +ATOR20TA GT; -BLOO-697 IN; -INSU100V11 SQ; -INSU100V7 SQ; -IPRA3AMP IH; +MAGN400O6 GT; -MAGN400O6 PO; -MIRT15TA PO; -SIMV40TA5 PO; -SITA50TA PO; -TRAM50TA2 PO
--- NOTE | 2018-04-24 08:30 | NUR ---
SKIP FROM HD CENTER FOR LOW BP 90/32 ACCESSORIES REPAIRER, RECEIVED HD FOR 1HR OUT OF 3HRS. PT IS ON TRACH BUT NON VENT. RR IS EVEN AND UNLABORED WITH NAD NOTED. SKIN IS WARM AND NON DIAPHORETIC. PLACED ON THE MONITOR. DR TALLEY AT BS FOR EVAL.
[2018-04-24 08:54] LABS: BASOPHILS # (AUTO) 0.3 /CMM (0.0-0.2); BASOPHILS % (AUTO) 1.2 % (0.0-2.0); EOSINOPHILS % (AUTO) 0.3 % (0.0-6.0); HEMATOCRIT 24 % (33-45); HEMOGLOBIN 8.3 g/dL (11.5-14.8); LYMPHOCYTES # (AUTO) 2.5 /CMM (0.8-4.8); LYMPHOCYTES % (AUTO) 10.2 % (20.0-44.0); MEAN CORPUSCULAR HEMOGLOBIN 29 PG (26.0-33.0); MEAN CORPUSCULAR HGB CONC 34 g/dl (31.0-36.0); MEAN CORPUSCULAR VOLUME 85 fL (82-100); MONOCYTES # (AUTO) 1.1 /CMM (0.1-1.30); MONOCYTES % (AUTO) 4.7 % (2.0-12.0); NEUTROPHILS # (AUTO) 20.1 /CMM (1.8-8.9); NEUTROPHILS % (AUTO) 83.6 % (43.0-81.0); PLATELET COUNT (AUTO) 327 /CMM (150-450); RDW COEFFICIENT OF VARIATION 17.5 (11.5-15.0); RED BLOOD CELL COUNT(AUTO) 2.85 MIL/uL (4.0-5.2); WHITE BLOOD COUNT (AUTO) 24.1 K/uL (4.3-11.0)
[2018-04-24 09:23] LABS: CALCIUM, SERUM 9.3 mg/dL (8.5-10.1); CARBON DIOXIDE 29 mmol/L (21-32); CHLORIDE 97 mmol/L (98-107); CREATININE 2.7 mg/dL (0.6-1.3); GLUCOSE 104 mg/dL (74-106); POTASSIUM 3.5 mmol/L (3.5-5.1); SODIUM SERUM 136 mmol/L (136-145); UREA NITROGEN, BLOOD 77 mg/dL (7-18)
[2018-04-24 09:29] LABS: ALANINE AMINOTRANSFERASE 17 U/L (12-78); ALBUMIN 2.3 g/dL (3.4-5.0); ALKALINE PHOSPHATASE 79 U/L (46-116); ASPARTATE AMINOTRANSFERASE 17 U/L (15-37); BILIRUBIN,DIRECT 0.1 mg/dL (0.0-0.2); BILIRUBIN,TOTAL 0.4 mg/dL (0.2-1.0); LIPASE 116 U/L (73-393); TOTAL PROTEIN, SERUM 8.1 g/dL (6.4-8.2)
[2018-04-24] MEDS ORDERED: VANCOMYCIN 1 GM in IV D5W 250 ML IV ONE (09:30)
[2018-04-24] MEDS ORDERED: CEFEPIME 1 GM in IV D5W 50 ML IV ONE (09:30)
[2018-04-24 09:42] LABS: TROPONIN I 0.066 ng/mL (0.00-0.056)
[2018-04-24 10:14] LABS: INR 1.03 (0.87-1.13)
[2018-04-24 10:15] LABS: PARTIAL THROMBOPLASTIN TIME > 170 SEC (23-34)
--- NOTE | 2018-04-24 10:16 | NUR ---
Sher gordillo in [facility] - 04/24/18 at 1016 by JEANINE BETO SHABAZZ -- VOLUNTEER MANAGER IS DR TOMPKINS.
[2018-04-24] MEDS ORDERED: CHLO473M3 MM (10:28)
[2018-04-24] MEDS ORDERED: ACID1TAB12 GT (10:28)
[2018-04-24] MEDS ORDERED: HYDR-552 GT (10:28)
[2018-04-24] MEDS ORDERED: ASCO500T9 GT (10:28)
[2018-04-24] MEDS ORDERED: OMEP40CA37 GT (10:28)
[2018-04-24] MEDS ORDERED: INSU100V11 SQ (10:28)
[2018-04-24] MEDS ORDERED: NPH,100V2 SQ (10:28)
[2018-04-24] MEDS ORDERED: FOLI0.8T2 GT (10:28)
[2018-04-24] MEDS ORDERED: SEVE2.4P3 GT (10:28)
[2018-04-24] MEDS ORDERED: INSU100V7 SQ (10:28)
[2018-04-24] MEDS ORDERED: LEVO75TA7 GT (10:28)
[2018-04-24] MEDS ORDERED: ONDA4TAB5 GT (10:28)
[2018-04-24] MEDS ORDERED: MIDO10TA GT (10:28)
--- NOTE | 2018-04-24 10:30 | NUR ---
Awa LEMOS CALLED @ .
--- NOTE | 2018-04-24 11:05 | NUR ---
CALLED DR VINCENT ON DIFFERENT NUMBER . NO RESPONSE.
[2018-04-24] MEDS ORDERED: ASPIRIN 325 MG TABLET PO ONE (11:30)
[2018-04-24] MEDS ORDERED: ASPIRIN 325 MG TABLET ONE (11:38)
[2018-04-24] MEDS ORDERED: ASPIRIN 325 MG TABLET PEG ONE (12:00)
[2018-04-24 12:06] LABS: BILIRUBIN,URINE SMALL (NEGATIVE); BLOOD, URINE Large Ery/uL (NEGATIVE); KETONES,URINE Negative (NEGATIVE); LEUKOCYTE ESTERASE ,URINE Large (NEGATIVE); NITRITE, URINE Negative (NEGATIVE); PH,URINE 6.5 (5.0-8.0); PROTEIN,URINE >=300 mg/dl (NEGATIVE); UGLUCOSE Negative (NEGATIVE); UROBILINOGEN,URINE 0.2 EU/dL (0.2)
[2018-04-24 12:11] LABS: APPEARANCE,URINE CLOUDY (CLEAR)
[2018-04-24 12:12] LABS: COLOR,URINE OTHER (YELLOW)
[2018-04-24 12:15] LABS: WBC,URINE 51-80 /HPF (0-3)
[2018-04-24 12:16] LABS: BACTERIA,URINE 2+ /HPF (None Seen)
--- NOTE | 2018-04-24 12:20 | NUR ---
REPORT GIVEN TO MAKEDA AYALA FOR ELISEO TELE 117-2
--- NOTE | 2018-04-24 12:20 | NUR ---
BED 117-2
[2018-04-24 13:05] VITALS: BP 135/55
--- NOTE | 2018-04-24 13:05 | NUR ---
DYE OPERATOR NOTES RECEIVED PATIENT FROM ER WITH DIAGNOSIS OF SEPSIS , PNEUMONIA , AOX1 , NON VERBAL , TRACKS , FOLLOWING SIMPLE COMMANDS , NOT IN ACUTE DISTRESS , ON COOL AEROSOL @ 28% SPO2 OF 100% , TRACH IN PLACE , SR 75 ON TELE MONITOR , GT PATENT AND INTACT CLAMPED , SKIN ASSESSMENT DONE , TOOK PICTURES AND PLACED IN THE CHART WOUND CONSULT ORDERED , PT ON PATRICIO MATTRESS , CLAUS MIDLINE PATENT AND INTACT SL , R FEMORAL YULY CATH C/D/I . CALLED DR VINCENT FOR ADMISSION ORDERED . ALL NEED ATTENDED , BED ON LOW AND LOCKED POSITION , SIDE RAILS X2 , CALL LIGHT WITHIN REACH , HOB @ 35 , WILL CONTINUE TO MONITOR .
--- NOTE | 2018-04-24 13:50 | NUR ---
SOFTWARE PUBLISHER NOTES SEEN AND EVALUATED BY DR VINCENT , DISCUSSED MEDICATION RECONCILIATIONS , LABS , AND CHEST XRAY , VSS AFEBRILE , BLOOD CULTURES OBTAINED IN ER , PER DR VINCENT , START GT FEEDING OF NEHPRO @ 35ML/HR , INSULIN SLIDING SCALE Q6 MODERATE , MAXIPIME AND VANCOMYCIN PHARMACY TO DOSE , OBTAIN ABG , AND ORDER PULMO CONSULT FOR TRACH /PNA MANAGEMENT , NEPHROLOGY CONSULT FOR HD SCHEDULE , AND ADD AM LABS FOR [place] , ORDERS CARRIED OUT
[2018-04-24] MEDS ORDERED: FEE PK DOSING 1 MIN EA MC ONE (14:11)
[2018-04-24 14:34] LABS: ABG BASE EXCESS 1.3 mmol/L; ABG OXYGEN SATURATION 98.3 % (92.0-98.5); ABG PCO2 38.2 mmHg (35.0-45.0); ABG PH 7.442 (7.350-7.450); ABG PO2 116.3 mmHg (75.0-100.0); AaDO2 96.1 mmHg; COHb 1.2 % (0.5-1.5); MetHb 0.3 % (0.0-1.5); O2Hb 96.8 % (94.0-97.0); SITE, ABG Right Radial; VENT MODE, BG T-PIECE
[2018-04-24] MEDS ORDERED: NA PHOS,M-B/NA PHOS,DI-BA 1 EA ENEMA RC PRN (15:00)
[2018-04-24] MEDS ORDERED: INSULIN ASPART/LISPRO 100 UNIT/ML CARTRIDGE SQ PRN (15:00)
[2018-04-24] MEDS ORDERED: MAGNESIUM HYDROXIDE 30 ML UDC GT PRN (15:00)
[2018-04-24] MEDS ORDERED: BISACODYL SUPP (10 MG) 10 MG/SUPP.RECT SUPP.RECT RC PRN (15:00)
[2018-04-24] MEDS ORDERED: ONDANSETRON 4 MG TAB.RAPDIS GT PRN (15:30)
[2018-04-24] MEDS: CEFEPIME 1 GM in IV D5W 50 ML IV SCH (15:59)
[2018-04-24 16:00] VITALS: BP 122/48
[2018-04-24] MEDS: MIDODRINE HCL (5MG) 5 MG TABLET GT SCH (16:27)
[2018-04-24] MEDS: NEPRO 1,000 ML BOTTLE GT PRN (16:53)
[2018-04-24] MEDS: SEVELAMER CARBONATE 0.8 GM POWD.PACK GT SCH (17:09)
[2018-04-24] MEDS: BLOOD SUGAR DIAGNOSTIC 1 EACH STRIP IN SCH (17:13)
[2018-04-24 20:00] VITALS: BP 125/56
[2018-04-24] MEDS: PANTOPRAZOLE 40 MG/PACK PACK GT SCH (21:50)
[2018-04-24] MEDS: CHLORHEXIDINE GLUCONATE 15 ML UDC MM SCH (21:50)
[2018-04-24] MEDS: ATORVASTATIN 10 MG TABLET GT SCH (21:50)
[2018-04-24] MEDS: INSULIN GLARGINE, 100 UNIT/ML CARTRIDGE SQ SCH (21:57)
[2018-04-24] MEDS ORDERED: ATORVASTATIN 40 MG TABLET PO SCH (22:00)
[2018-04-25] VITALS: BP 125/50
[2018-04-25] MEDS: BLOOD SUGAR DIAGNOSTIC 1 EACH STRIP IN SCH ×4 (00:34→17:32)
[2018-04-25] MEDS: INSULIN REGULAR, HUMAN 100 UNIT/ML 3 ML VIAL SQ PRN ×4 (00:39→17:31)
[2018-04-25 04:00] VITALS: BP 137/53
[2018-04-25 07:03] LABS: BASOPHILS % (AUTO) 0.2 % (0.0-2.0); EOSINOPHILS % (AUTO) 0.3 % (0.0-6.0); HEMATOCRIT 26 % (33-45); HEMOGLOBIN 8.9 g/dL (11.5-14.8); LYMPHOCYTES # (AUTO) 1.9 /CMM (0.8-4.8); MEAN CORPUSCULAR HEMOGLOBIN 29 PG (26.0-33.0); MEAN CORPUSCULAR HGB CONC 34 g/dl (31.0-36.0); MEAN CORPUSCULAR VOLUME 87 fL (82-100); MONOCYTES # (AUTO) 0.6 /CMM (0.1-1.30); MONOCYTES % (AUTO) 2.8 % (2.0-12.0); NEUTROPHILS # (AUTO) 18.2 /CMM (1.8-8.9); NEUTROPHILS % (AUTO) 87.7 % (43.0-81.0); PLATELET COUNT (AUTO) 305 /CMM (150-450); RDW COEFFICIENT OF VARIATION 17.6 (11.5-15.0); RED BLOOD CELL COUNT(AUTO) 3.03 MIL/uL (4.0-5.2); WHITE BLOOD COUNT (AUTO) 20.8 K/uL (4.3-11.0)
--- NOTE | 2018-04-25 07:15 | NUR ---
TELE/RN NOTES RECEIVED PATIENT IN BED, HOB ELEVATED. ALERT, NON-VERBAL. WITH INTACT AND IN PLACE TRACH, ON COOL AEROSOL @ 40% SPO2 OF 100%. ON TELEMONITOR SR 70S, WITH INTACT AND PATENT GT, WITH ONGOING GTF OF NEPRO AT 30 ML/HR, TOLERATING WELL, NO RESIDUE NOTED. CLAUS MIDLINE PATENT AND INTACT, R FEMORAL YULY CATH INTACT. SAFETY MEASURES AND ASPIRATION PRECAUTION IN PLACED. CALL LIGHT WITHIN REACH. NEEDS ATTENDED.
[2018-04-25 07:30] LABS: CALCIUM, SERUM 9.6 mg/dL (8.5-10.1); CARBON DIOXIDE 26 mmol/L (21-32); CHLORIDE 94 mmol/L (98-107); CREATININE 3.6 mg/dL (0.6-1.3); GLUCOSE 246 mg/dL (74-106); MAGNESIUM 2.6 mg/dL (1.8-2.4); PHOSPHORUS 1.7 mg/dL (2.5-4.9); POTASSIUM 3.5 mmol/L (3.5-5.1); SODIUM SERUM 133 mmol/L (136-145)
[2018-04-25 07:39] LABS: UREA NITROGEN, BLOOD 96 mg/dL (7-18)
[2018-04-25 08:00] VITALS: BP 123/43
[2018-04-25] MEDS: LEVOTHYROXINE SODIUM 75 MCG TABLET GT SCH (08:11)
[2018-04-25] MEDS: SEVELAMER CARBONATE 0.8 GM POWD.PACK GT SCH ×3 (08:11→17:07)
[2018-04-25] MEDS: CHLORHEXIDINE GLUCONATE 15 ML UDC MM SCH ×2 (09:10→21:37)
[2018-04-25] MEDS: PANTOPRAZOLE 40 MG/PACK PACK GT SCH ×2 (09:11→21:37)
[2018-04-25] MEDS: VIT B CMPLX 3/FA/VIT C/BIOTIN 1 TAB TABLET PO SCH (09:11)
[2018-04-25] MEDS: HYDROCODONE/APAP 5/325MG 1 EACH TABLET GT SCH (09:11)
[2018-04-25] MEDS: ASCORBIC ACID 500 MG TABLET GT SCH (09:11)
[2018-04-25] MEDS: ACIDOPHILUS/BULGARICUS 1 EACH TAB.CHEW GT SCH (09:11)
[2018-04-25] MEDS: MIDODRINE HCL (5MG) 5 MG TABLET GT SCH ×3 (09:12→16:37)
--- NOTE | 2018-04-25 09:12 | NUR ---
WOUND CARE CONSULT: PT PRESENTS WITH RT INNER THIGH/GROIN AREA WOUND (SURGICAL SITE) WITH SOME BLEEDING AND SMALL CLOT, PRESENT ON ADMISSION. DEFER TO MD FOR RT INNER THIGH/GROIN AREA. PROTECTED WITH MEPILEX. PT ALSO NOTED TO HAVE INTACT DEEP TISSUE INJURIES TO RT ANKLE AND LATERAL LOWER LEG, LEFT HEEL UNSTAGEABLE ULCER WITH PURULENT DRAINAGE AND SCARRING TO LEFT ANKLE, SACRUM AND BUTTOCKS, PRESENT ON ADMISSION. PODIATRY CONSULT RECOMMENDED. PT HAS SEVERE LOWER EXTREMITY CONTRACTURES MAKING OFFLOADING CHALLENGING. PT ON FIRST STEP LOW AIRLOSS MATTRESS. ALL SKIN PROTECTION AND WOUND CARE RECOMMENDATIONS DISCUSSED WITH NURSING STAFF. CURRENT ROLANDO SCORE IS 10. MD IN AGREEMENT WITH PLAN OF CARE. MSG LEFT FOR DR VINCENT. Addendum: 04/25/18 at 0919 by GUSTAVO GALEAS WNDNU Amended: Links added.
[2018-04-25] MEDS ORDERED: Z GUARD REMEDY 2 OZ OINT TP PRN (09:30)
[2018-04-25] MEDS: INSULIN GLARGINE, 100 UNIT/ML CARTRIDGE SQ SCH ×2 (09:31→21:40)
[2018-04-25] MEDS: CADEXOMER IODINE 40 GM TUBE TP SCH (10:44)
[2018-04-25] MEDS: Z GUARD REMEDY 2 OZ OINT TP SCH (10:44)
[2018-04-25 12:00] VITALS: BP 122/45
[2018-04-25] MEDS ORDERED: ALTEPLASE CATHFLO 2 MG/VIAL IV ONE (12:00)
[2018-04-25] MEDS: CEFEPIME 1 GM in IV D5W 50 ML IV SCH (14:58)
[2018-04-25 16:00] VITALS: BP 123/41
[2018-04-25] MEDS ORDERED: VANCOMYCIN 500 MG in IV NS 0.9% 100 ML IV PRN (16:00)
--- NOTE | 2018-04-25 19:30 | NUR ---
RN NOTES PT REMAINED STABLE. NO ACUTE DISTRESS NOTED THROUGHOUT SHIFT. REMAINED AFEBRILE. SAFETY MEASURES AND ASPIRATION PRECAUTION OBSERVED AT ALL TIMES. ALL NEEDS ATTENDED. ENDORSED TO PM SHIFT NURSE FOR ELISEO
[2018-04-25] MEDS: ACETAMINOPHEN 650 MG/20.3 ML UDC GT PRN (19:51)
[2018-04-25 20:00] VITALS: BP 151/50
[2018-04-25] MEDS: ATORVASTATIN 10 MG TABLET GT SCH (21:37)
[2018-04-26] VITALS (7 sets, daily range): BP systolic 132–152; BP diastolic 44–69
[2018-04-26] MEDS: BLOOD SUGAR DIAGNOSTIC 1 EACH STRIP IN SCH ×4 (00:55→17:14)
[2018-04-26] MEDS: INSULIN REGULAR, HUMAN 100 UNIT/ML 3 ML VIAL SQ PRN ×3 (00:57→17:23)
--- NOTE | 2018-04-26 06:16 | NUR ---
RN CLOSING NOTES NO ACUTE DISTRESS OBSERVED OVERNIGHT. REMAINS NSR AT 70s. AFEBRILE. TOLERATED GTF ORDERED. WOUND TREATMENT RENDERED ORDERED. TRACH CARE DONE. AIRWAY SUCTIONED AND KEPT CLEAR, MODERATE, THICK, PINK-TINGED SECRETIONS. TURNED AND REPOSITIONED PATIENT. SAFETY AND COMFORT ENSURED. BED IN LOW AND LOCKED POSITION. NEEDS ANTICIPATED. WILL ENDORSE ACCORDINGLY.
[2018-04-26 08:10] LABS: ALANINE AMINOTRANSFERASE 19 U/L (12-78); ALBUMIN 2.1 g/dL (3.4-5.0); ALKALINE PHOSPHATASE 105 U/L (46-116); ASPARTATE AMINOTRANSFERASE 21 U/L (15-37); BILIRUBIN,TOTAL 0.3 mg/dL (0.2-1.0); CARBON DIOXIDE 24 mmol/L (21-32); CHLORIDE 94 mmol/L (98-107); CREATININE 3.6 mg/dL (0.6-1.3); GLUCOSE 208 mg/dL (74-106); MAGNESIUM 2.5 mg/dL (1.8-2.4); PHOSPHORUS 1.6 mg/dL (2.5-4.9); POTASSIUM 3.7 mmol/L (3.5-5.1); SODIUM SERUM 132 mmol/L (136-145); TOTAL PROTEIN, SERUM 7.8 g/dL (6.4-8.2)
[2018-04-26 08:12] LABS: UREA NITROGEN, BLOOD 91 mg/dL (7-18)
[2018-04-26] MEDS: CHLORHEXIDINE GLUCONATE 15 ML UDC MM SCH ×2 (08:32→22:02)
[2018-04-26] MEDS: ASCORBIC ACID 500 MG TABLET GT SCH (08:32)
[2018-04-26] MEDS: VIT B CMPLX 3/FA/VIT C/BIOTIN 1 TAB TABLET PO SCH (08:32)
[2018-04-26] MEDS: SEVELAMER CARBONATE 0.8 GM POWD.PACK GT SCH ×3 (08:32→17:14)
[2018-04-26] MEDS: LEVOTHYROXINE SODIUM 75 MCG TABLET GT SCH (08:32)
[2018-04-26] MEDS: PANTOPRAZOLE 40 MG/PACK PACK GT SCH ×2 (08:32→22:02)
[2018-04-26] MEDS: ACIDOPHILUS/BULGARICUS 1 EACH TAB.CHEW GT SCH (08:32)
[2018-04-26] MEDS: Z GUARD REMEDY 2 OZ OINT TP SCH (08:33)
[2018-04-26] MEDS: HYDROCODONE/APAP 5/325MG 1 EACH TABLET GT SCH (08:33)
[2018-04-26] MEDS: MIDODRINE HCL (5MG) 5 MG TABLET GT SCH ×3 (08:35→17:00)
[2018-04-26] MEDS: CADEXOMER IODINE 40 GM TUBE TP SCH (08:39)
[2018-04-26] MEDS: INSULIN GLARGINE, 100 UNIT/ML CARTRIDGE SQ SCH ×2 (08:47→22:04)
--- NOTE | 2018-04-26 10:00 | NUR ---
RN Note: Per VIRGINIE Villela RN, unable to obtain sufficient blood flow during HD s/p Cathflo activase administration. Dr Ramsay notified.
[2018-04-26 10:07] LABS: HEMOGLOBIN 7.7 g/dL (11.5-14.8); RED BLOOD CELL COUNT(AUTO) 2.72 MIL/uL (4.0-5.2); WHITE BLOOD COUNT (AUTO) 17.9 K/uL (4.3-11.0)
[2018-04-26 10:08] LABS: BASOPHILS % (AUTO) 0.4 % (0.0-2.0); EOSINOPHILS % (AUTO) 0.9 % (0.0-6.0); HEMATOCRIT 24 % (33-45); LYMPHOCYTES % (AUTO) 10.8 % (20.0-44.0); MEAN CORPUSCULAR HEMOGLOBIN 29 PG (26.0-33.0); MEAN CORPUSCULAR HGB CONC 32 g/dl (31.0-36.0); MEAN CORPUSCULAR VOLUME 88 fL (82-100); MONOCYTES % (AUTO) 4.1 % (2.0-12.0); NEUTROPHILS % (AUTO) 83.8 % (43.0-81.0); PLATELET COUNT (AUTO) 301 /CMM (150-450); RDW COEFFICIENT OF VARIATION 19.3 (11.5-15.0)
[2018-04-26 10:09] LABS: BASOPHILS # (AUTO) 0.1 /CMM (0.0-0.2); LYMPHOCYTES # (AUTO) 1.9 /CMM (0.8-4.8); MONOCYTES # (AUTO) 0.7 /CMM (0.1-1.30)
[2018-04-26] MEDS ORDERED: NEUTRA PHOS 1 POWD.PACKET NG ONE (11:00)
[2018-04-26] MEDS: CEFEPIME 1 GM in IV D5W 50 ML IV SCH (14:27)
--- NOTE | 2018-04-26 15:00 | NUR ---
RN Note: Bed bath, wound care rendered, tolerated well. 1 soft brown bm noted.
--- NOTE | 2018-04-26 17:00 | NUR ---
RN Note: 1700 Midodrine held; SBP >150, BP is trending up.
--- NOTE | 2018-04-26 19:30 | NUR ---
TELE/RN NOTES: RECEIVED PT. IN BED W/ HOB ELEVATED. A/O X 1. NON VERBAL, TRACKS. ON COOL AEROSOL @ 28%. TRACH IN PLACE W/ NO S/S OF RESPIRATORY DISTRESS. NO FACIAL GRIMACES OR MOANING NOTED. ON TELE MONITOR W/ SR @ 84. HAS HD CATH ON RIGHT FEMORAL. CLAUS MIDLINE C/D/I. HAS NEPHRO @ 35CC/HR PATENT AND INTACT W/ NO RESIDUAL NOTED. BEDS LOCKED AND IN LOW POSITION. CALL LIGHT W/ REACH. WILL CONTINUE TO MONITOR. WILL CONTINUE TO MONITOR.
[2018-04-26] MEDS: ATORVASTATIN 10 MG TABLET GT SCH (22:03)
[2018-04-27] VITALS: BP 130/60
[2018-04-27] MEDS: BLOOD SUGAR DIAGNOSTIC 1 EACH STRIP IN SCH ×4 (00:15→17:05)
[2018-04-27 04:00] VITALS: BP 134/53
--- NOTE | 2018-04-27 07:25 | NUR ---
TELE/RN NOTES: NO ACUTE CHANGES NOTED DURING THIS SHIFT. REPORT GIVEN TO NEXT SHIFT NURSE FOR ELISEO.
[2018-04-27 08:00] VITALS: BP 147/31
--- NOTE | 2018-04-27 08:00 | NUR ---
TELE1/RN AM SHIFT INITIAL NOTES RECEIVED PT AWAKE IN BED, PT NON-VERBAL, TRACHED, EYES TRACKS, NO GRIMACING OR NO ACUTE CHANGE OF CONDITION NOTED, ON T-PIECE WITH 10L HUMIDIFIED O2, SATURATING @ 98%, LUNG SOUNDS RHOCHI, SUCTIONED FOR AIRWAY CLEARANCE, RESPIRATIONS EVEN & UNLABORED. ON TELE WITH SINUS RHYTHM, HR. 75. GTF FEEDING ON GOING @ 35CC/HR, NO GASTRIC RESIDUAL NOTED, FLUSHED, PATENT. MID-LINE FLUSHED, PATENT, SL. NO S/S OF INFECTION. PT IS COMFORTABLE, SCHEDULED AM MEDS TO BE GIVEN. CL WITHIN REACHED AND SAFETY MAINTAINED. ON GOING MONITORING.
[2018-04-27] MEDS: INSULIN GLARGINE, 100 UNIT/ML CARTRIDGE SQ SCH ×2 (08:59→20:29)
[2018-04-27] MEDS: SEVELAMER CARBONATE 0.8 GM POWD.PACK GT SCH ×3 (09:01→17:09)
[2018-04-27] MEDS: PANTOPRAZOLE 40 MG/PACK PACK GT SCH ×2 (09:01→20:20)
[2018-04-27] MEDS: ASCORBIC ACID 500 MG TABLET GT SCH (09:02)
[2018-04-27] MEDS: LEVOTHYROXINE SODIUM 75 MCG TABLET GT SCH (09:02)
[2018-04-27] MEDS: MIDODRINE HCL (5MG) 5 MG TABLET GT SCH ×3 (09:02→17:09)
[2018-04-27] MEDS: CHLORHEXIDINE GLUCONATE 15 ML UDC MM SCH ×2 (09:03→20:20)
[2018-04-27] MEDS: Z GUARD REMEDY 2 OZ OINT TP SCH (09:03)
[2018-04-27] MEDS: VIT B CMPLX 3/FA/VIT C/BIOTIN 1 TAB TABLET PO SCH (09:03)
[2018-04-27] MEDS: ACIDOPHILUS/BULGARICUS 1 EACH TAB.CHEW GT SCH (09:03)
[2018-04-27] MEDS: HYDROCODONE/APAP 5/325MG 1 EACH TABLET GT SCH (09:03)
[2018-04-27] MEDS: CADEXOMER IODINE 40 GM TUBE TP SCH (09:05)
[2018-04-27 12:00] VITALS: BP 118/25
[2018-04-27 12:01] LABS: CALCIUM, SERUM 9.3 mg/dL (8.5-10.1); CARBON DIOXIDE 25 mmol/L (21-32); CHLORIDE 93 mmol/L (98-107); CREATININE 3.8 mg/dL (0.6-1.3); GLUCOSE 160 mg/dL (74-106); POTASSIUM 3.5 mmol/L (3.5-5.1); SODIUM SERUM 131 mmol/L (136-145)
[2018-04-27 12:03] LABS: UREA NITROGEN, BLOOD 89 mg/dL (7-18)
[2018-04-27] MEDS: INSULIN REGULAR, HUMAN 100 UNIT/ML 3 ML VIAL SQ PRN (12:36)
[2018-04-27] MEDS: NEPRO 1,000 ML BOTTLE GT PRN (14:57)
[2018-04-27] MEDS: CEFEPIME 1 GM in IV D5W 50 ML IV SCH (15:41)
[2018-04-27 16:00] VITALS: BP 115/65
[2018-04-27] MEDS ORDERED: FEE PK DOSING 1 MIN EA MC ONE (16:09)
[2018-04-27] MEDS ORDERED: GENTAMICIN 120 MG in IV NS 0.9% 100 ML IV ONE (17:00)
[2018-04-27 20:00] VITALS: BP 156/51
--- NOTE | 2018-04-27 20:28 | NUR ---
TELE1/RN AM SHIFT END NOTES ALL NEEDS MET, NO ACUTE CHANGE OF CONDITION NOTED DURING THE SHIFT. PT ENDORSED TO PM NURSE TO CONTINUE CARE. ON GOING GT FEEDING @ 35CC/HR AND MIDLINE INTACT. CL WITHIN REACHED AND SAFETY MAINTAINED.
--- NOTE | 2018-04-27 22:33 | NUR ---
RN NOTE HR OF 113, BP 168/78, RESTLESSNESS NOTED, CALLED DR VANNESSA BUCIO, NEW ORDER OF MORPHINE 2MG IV Q 4 HOURS PRN GIVEN AND CARRIED OUT
[2018-04-27] MEDS: ATORVASTATIN 10 MG TABLET GT SCH (22:43)
[2018-04-27] MEDS ORDERED: MORPHINE SULFATE INJ 2 MG/ML DISP.SYRIN IV PRN (23:00)
[2018-04-27 23:56] LABS: ABG BASE EXCESS -1.8 mmol/L; ABG OXYGEN SATURATION 96.4 % (92.0-98.5); ABG PCO2 91.4 mmHg (35.0-45.0); ABG PH 7.116 (7.350-7.450); ABG PO2 113.7 mmHg (75.0-100.0); AaDO2 493.2 mmHg; MetHb 0.3 % (0.0-1.5); O2Hb 95.1 % (94.0-97.0); SITE, ABG Right Brachial; VENT MODE, BG CA 10L 98%
[2018-04-28] VITALS: BP 149/59
[2018-04-28] MEDS: BLOOD SUGAR DIAGNOSTIC 1 EACH STRIP IN SCH ×5 (00:03→23:01)
--- NOTE | 2018-04-28 00:30 | NUR ---
RN NOTE CHANGE IN LEVEL OF CONSCIOUSNESS NOTED, RAPID RESPIRATIONS, RESTLESSNESS ,BP 149/59, TEMPERATURE 97.8F ORALLY, PULSE 103, RESPIRATIONS 24, SPO2 84% ON FIO2 35%, NOTIFIED JOSE BAIG NEW ORDER OF STAT ABG's, STAT CBC GIVEN, JOSE BAIG STATED THAT SHE WILL CONTACT DR ALMEIDA FOR CONSULTATION AND WE CAN PAGE DR ALMEIDA, PAGED DR ALMEIDA (DR YOUNG IS BACK SIZER), DOCTOR HECTOR GAVE AN ORDER TO PUT PATIENT ON THE MECHANICAL VENTILATOR, ABG'S IN THE AM, WILL CONTINUE TO MONITOR Addendum: 04/28/18 at 0141 by MATTHEW MCINTOSH RN AT 0100AM
--- NOTE | 2018-04-28 01:00 | NUR ---
PT RCVD TRACH PORTEX 8 ON CA 35% 8L . PT IS DESATTING WITH SPO2 OF 84%. ABG DONE . PT PLACED ON MECHANICAL VENT AC 20, 500,40% PEEP 5 PER MD'S ORDER. SUCTIONED WITH MODERATE AMOUNT OF WHITE THICK SECRETIONS.VENT PLUGGED INTO RED OUTLET. ALARMS SET AND AUDIBLE. AMBU BAG AT BEDSIDE.
[2018-04-28 01:25] LABS: HEMOGLOBIN 8.1 g/dL (11.5-14.8); RED BLOOD CELL COUNT(AUTO) 2.85 MIL/uL (4.0-5.2); WHITE BLOOD COUNT (AUTO) 18.4 K/uL (4.3-11.0)
[2018-04-28 01:26] LABS: BASOPHILS # (AUTO) 0.1 /CMM (0.0-0.2); BASOPHILS % (AUTO) 0.4 % (0.0-2.0); EOSINOPHILS % (AUTO) 0.5 % (0.0-6.0); HEMATOCRIT 25 % (33-45); LYMPHOCYTES # (AUTO) 1.2 /CMM (0.8-4.8); LYMPHOCYTES % (AUTO) 6.6 % (20.0-44.0); MEAN CORPUSCULAR HEMOGLOBIN 28 PG (26.0-33.0); MEAN CORPUSCULAR HGB CONC 33 g/dl (31.0-36.0); MEAN CORPUSCULAR VOLUME 87 fL (82-100); MONOCYTES # (AUTO) 0.8 /CMM (0.1-1.30); MONOCYTES % (AUTO) 4.5 % (2.0-12.0); NEUTROPHILS # (AUTO) 16.2 /CMM (1.8-8.9); PLATELET COUNT (AUTO) 334 /CMM (150-450); RDW COEFFICIENT OF VARIATION 18.9 (11.5-15.0)
[2018-04-28 04:00] VITALS: BP 107/41
[2018-04-28] MEDS: DEXTROSE 50%-WATER 50 ML DISP.SYRIN IV PRN (06:10)
--- NOTE | 2018-04-28 06:57 | NUR ---
RN NOTE PATIENT IS STABLE AT THIS MOMENT, ON THE MECHANICAL VENTILATOR AND TOLERATES WELL, SATURATION 100% AT THIS MOMENT, NO RESTLESSNESS NOTED, NO PAIN OR DISCOMFORT NOTED, VITAL SIGNS ARE STABLE, WILL ENDORSE TO AM SHIFT FOR ELISEO
--- NOTE | 2018-04-28 07:41 | NUR ---
RETAIL WIRELESS SALES REPRESENTATIVE RECEIVED PATIENT FROM THE PREVOUS SHIFT. PATIENT IS OBTUNDED. STABLE VITAL SINGS. ON AC SETTINGS ON VENT. WILL CONTINUE TO MONITOR AND PROVIDE CARE.
[2018-04-28 07:53] LABS: ABG BASE EXCESS 1.8 mmol/L; ABG OXYGEN SATURATION 97.9 % (92.0-98.5); ABG PCO2 32.4 mmHg (35.0-45.0); ABG PH 7.503 (7.350-7.450); AaDO2 148.9 mmHg; COHb 1.7 % (0.5-1.5); MetHb 0.3 % (0.0-1.5); O2Hb 95.9 % (94.0-97.0); PEEP,BG 5 cm H2O; SITE, ABG Right Brachial; VT, ABG 500 mL
[2018-04-28 08:00] VITALS: BP 115/44
[2018-04-28] MEDS: Z GUARD REMEDY 2 OZ OINT TP SCH (08:01)
[2018-04-28] MEDS: SEVELAMER CARBONATE 0.8 GM POWD.PACK GT SCH ×3 (08:10→17:39)
[2018-04-28] MEDS: PANTOPRAZOLE 40 MG/PACK PACK GT SCH ×2 (08:10→20:43)
[2018-04-28] MEDS: MIDODRINE HCL (5MG) 5 MG TABLET GT SCH ×3 (08:10→17:40)
[2018-04-28] MEDS: ACIDOPHILUS/BULGARICUS 1 EACH TAB.CHEW GT SCH (08:10)
[2018-04-28] MEDS: VIT B CMPLX 3/FA/VIT C/BIOTIN 1 TAB TABLET PO SCH (08:10)
[2018-04-28] MEDS: CHLORHEXIDINE GLUCONATE 15 ML UDC MM SCH ×2 (08:10→20:43)
[2018-04-28] MEDS: ASCORBIC ACID 500 MG TABLET GT SCH (08:10)
[2018-04-28] MEDS: CADEXOMER IODINE 40 GM TUBE TP SCH (08:11)
[2018-04-28] MEDS: INSULIN GLARGINE, 100 UNIT/ML CARTRIDGE SQ SCH ×2 (08:11→20:39)
[2018-04-28] MEDS: LEVOTHYROXINE SODIUM 75 MCG TABLET GT SCH (08:11)
[2018-04-28] MEDS: HYDROCODONE/APAP 5/325MG 1 EACH TABLET GT SCH (08:11)
[2018-04-28 08:16] LABS: EOSINOPHILS % (AUTO) 0.6 % (0.0-6.0); HEMATOCRIT 22 % (33-45); HEMOGLOBIN 7.9 g/dL (11.5-14.8); LYMPHOCYTES # (AUTO) 2.3 /CMM (0.8-4.8); LYMPHOCYTES % (AUTO) 14.2 % (20.0-44.0); MEAN CORPUSCULAR HEMOGLOBIN 30 PG (26.0-33.0); MEAN CORPUSCULAR HGB CONC 35 g/dl (31.0-36.0); MEAN CORPUSCULAR VOLUME 86 fL (82-100); MONOCYTES # (AUTO) 0.8 /CMM (0.1-1.30); MONOCYTES % (AUTO) 4.8 % (2.0-12.0); NEUTROPHILS # (AUTO) 12.7 /CMM (1.8-8.9); NEUTROPHILS % (AUTO) 80.4 % (43.0-81.0); PLATELET COUNT (AUTO) 306 /CMM (150-450); RED BLOOD CELL COUNT(AUTO) 2.61 MIL/uL (4.0-5.2); WHITE BLOOD COUNT (AUTO) 15.9 K/uL (4.3-11.0)
[2018-04-28 08:25] LABS: CALCIUM, SERUM 9.5 mg/dL (8.5-10.1); CARBON DIOXIDE 24 mmol/L (21-32); CHLORIDE 94 mmol/L (98-107); CREATININE 4.2 mg/dL (0.6-1.3); GLUCOSE 161 mg/dL (74-106); POTASSIUM 4.1 mmol/L (3.5-5.1); SODIUM SERUM 132 mmol/L (136-145); VANCOMYCIN,RANDOM 20 ug/ml (18-26)
[2018-04-28 08:26] LABS: UREA NITROGEN, BLOOD 99 mg/dL (7-18)
[2018-04-28] MEDS: ALBUTEROL HALF STRENGTH 1.25 MG/3 ML VIAL.NEB NEB SCH ×3 (10:00→20:23)
[2018-04-28] MEDS: IPRATROPIUM NEB FS 0.5 MG/2.5 ML AMPUL.NEB NEB SCH ×3 (10:00→20:23)
--- NOTE | 2018-04-28 10:55 | NUR ---
VENT CHANGES MADE ANTHONY ORDER: AC 14 VT 450ML Addendum: 04/28/18 at 1056 by DIETER KIDD RT Amended: Links added.
[2018-04-28 12:00] VITALS: BP 112/41
[2018-04-28] MEDS: INSULIN REGULAR, HUMAN 100 UNIT/ML 3 ML VIAL SQ PRN ×2 (13:59→23:04)
[2018-04-28 16:00] VITALS: BP 100/35
[2018-04-28 20:00] VITALS: BP 119/68
[2018-04-28 20:25] LABS: OCCULT BLOOD STOOL POSITIVE (NEGATIVE)
[2018-04-28] MEDS: ATORVASTATIN 10 MG TABLET GT SCH (21:01)
[2018-04-28] MEDS: NEPRO 1,000 ML BOTTLE GT PRN (23:07)
[2018-04-29] VITALS (8 sets, daily range): BP systolic 90–125; BP diastolic 17–57
[2018-04-29] MEDS: ALBUTEROL HALF STRENGTH 1.25 MG/3 ML VIAL.NEB NEB SCH ×4 (01:49→19:33)
[2018-04-29] MEDS: IPRATROPIUM NEB FS 0.5 MG/2.5 ML AMPUL.NEB NEB SCH ×4 (01:49→19:33)
[2018-04-29] MEDS: INSULIN REGULAR, HUMAN 100 UNIT/ML 3 ML VIAL SQ PRN ×2 (05:50→12:33)
[2018-04-29] MEDS: BLOOD SUGAR DIAGNOSTIC 1 EACH STRIP IN SCH ×4 (05:50→23:44)
--- NOTE | 2018-04-29 06:39 | NUR ---
RN NOTE PATIENT WAS STABLE DURING THE NIGHT, NO DISTRESS NOTED, NO PAIN OR DISCOMFORT NOTED, TOLERATED FEEDING WELL, ALL SAFETY MEASURES TAKEN, WILL ENDORSE TO AM SHIFT FOR ELISEO
[2018-04-29 07:27] LABS: CALCIUM, SERUM 9.4 mg/dL (8.5-10.1); CARBON DIOXIDE 23 mmol/L (21-32); CHLORIDE 92 mmol/L (98-107); CREATININE 4.8 mg/dL (0.6-1.3); GLUCOSE 195 mg/dL (74-106); POTASSIUM 3.8 mmol/L (3.5-5.1); SODIUM SERUM 129 mmol/L (136-145)
[2018-04-29 07:29] LABS: UREA NITROGEN, BLOOD 114 mg/dL (7-18)
--- NOTE | 2018-04-29 07:35 | NUR ---
TD OPENING RECEIVED PATIENT ON VENT TOLERATING WELL. NO SOB, DIFFICULTY BREATHING AND NODS NO TO PAIN. PATIENT ALERT AND AWAKE UNDERSTANDING OF QUESTIONS ASKED WITH NODDING. NSR TELE AT THIS TIME. TUBE FEEDING PER ORDER WITHOUT RESIDUAL. R FEM HD CATH IN PLACE C/D/I. MILDINE C/D/I/P. SAFETY, SKIN, AND ASPIRATION PRECAUTIONS IN PLACE. PATIENT PENDING HD TODAY. WILL MONITOR
--- NOTE | 2018-04-29 07:42 | NUR ---
dr thompson aware of patient labs. patient scheduled for hd today. no new orders
[2018-04-29] MEDS: PANTOPRAZOLE 40 MG/PACK PACK GT SCH ×2 (08:22→22:06)
[2018-04-29] MEDS: Z GUARD REMEDY 2 OZ OINT TP SCH (08:22)
[2018-04-29] MEDS: SEVELAMER CARBONATE 0.8 GM POWD.PACK GT SCH ×3 (08:22→17:41)
[2018-04-29] MEDS: ASCORBIC ACID 500 MG TABLET GT SCH (08:22)
[2018-04-29] MEDS: VIT B CMPLX 3/FA/VIT C/BIOTIN 1 TAB TABLET PO SCH (08:22)
[2018-04-29] MEDS: CHLORHEXIDINE GLUCONATE 15 ML UDC MM SCH ×2 (08:22→22:06)
[2018-04-29] MEDS: LEVOTHYROXINE SODIUM 75 MCG TABLET GT SCH (08:22)
[2018-04-29] MEDS: ACIDOPHILUS/BULGARICUS 1 EACH TAB.CHEW GT SCH (08:22)
[2018-04-29] MEDS: MIDODRINE HCL (5MG) 5 MG TABLET GT SCH ×3 (08:25→17:41)
[2018-04-29] MEDS: HYDROCODONE/APAP 5/325MG 1 EACH TABLET GT SCH (08:26)
[2018-04-29] MEDS: CADEXOMER IODINE 40 GM TUBE TP SCH (08:34)
[2018-04-29] MEDS: INSULIN GLARGINE, 100 UNIT/ML CARTRIDGE SQ SCH ×2 (08:34→22:03)
--- NOTE | 2018-04-29 08:45 | NUR ---
MESSAGE TO DR VINCENT TO NOTIFY OF PATIENT PROCALCITONIN 2.38 AND OB POSITIVE RESULTS. VS STABLE
--- NOTE | 2018-04-29 09:25 | NUR ---
DR VINCENT AT BEDSIDE. UPDATED ON PATIENT CONDITION, VS, LABS. PER MD PLEASE OBTAIN CM CONSULT FOR EVAL FOR [facility]. NO OTHER ORDERS AT THIS TIME.
[2018-04-29 09:53] LABS: HEMATOCRIT 23 % (33-45); HEMOGLOBIN 7.4 g/dL (11.5-14.8); MEAN CORPUSCULAR HEMOGLOBIN 29 PG (26.0-33.0); MEAN CORPUSCULAR HGB CONC 32 g/dl (31.0-36.0); MEAN CORPUSCULAR VOLUME 89 fL (82-100); RED BLOOD CELL COUNT(AUTO) 2.56 MIL/uL (4.0-5.2); WHITE BLOOD COUNT (AUTO) 17.4 K/uL (4.3-11.0)
[2018-04-29 09:54] LABS: BASOPHILS % (AUTO) 0.3 % (0.0-2.0); EOSINOPHILS % (AUTO) 1.5 % (0.0-6.0); LYMPHOCYTES % (AUTO) 15.4 % (20.0-44.0); MONOCYTES % (AUTO) 2.6 % (2.0-12.0); NEUTROPHILS % (AUTO) 80.3 % (43.0-81.0); PLATELET COUNT (AUTO) 291 /CMM (150-450); RDW COEFFICIENT OF VARIATION 19.8 (11.5-15.0)
[2018-04-29 10:45] LABS: NEUTROPHILS # (AUTO) 13.9 /CMM (1.8-8.9)
[2018-04-29 10:46] LABS: BASOPHILS # (AUTO) 0.1 /CMM (0.0-0.2); LYMPHOCYTES # (AUTO) 2.7 /CMM (0.8-4.8); MONOCYTES # (AUTO) 0.5 /CMM (0.1-1.30)
[2018-04-29] MEDS ORDERED: EPOETIN ALFA (10,000 UNIT) 10,000 UNIT/ML VIAL IV ONE (15:30)
--- NOTE | 2018-04-29 15:38 | NUR ---
MESSAGE TO DR VALDES TO NOTIFY PRISCILA HD RN WAS NOT ABLE TO COMPLETE ANY HD THROUGH HER ACCESS. AWAITING MD ORDERS.
--- NOTE | 2018-04-29 15:54 | NUR ---
DURING PATIENT BED BATH UNWRAPPED KERLIX ON ARM OF MIDLINE TO FIND MIDLINE SHELTER REMOVED BUT PATENT. CALLED MELONY SKELTON RIGHT AWAY TO NOTIFY AND PER MELONY PLEASE CONTACT NANY ASHFORD TO REPLACE.
--- NOTE | 2018-04-29 16:37 | NUR ---
MELONY AT BEDSIDE FOR MIDLINE INSERTION. PER DR LUCIO TY TO INSERT NEW HD CATH. NOTIFIED MELONY.
--- NOTE | 2018-04-29 16:47 | NUR ---
MELONY AWARE OF PATIENT NEEDING HD CATH INSERTION AND STATES WILL BE COMPLETED TOMORROW; DR VALDES AWARE. PER DR VALDES NO NEED FOR CATH TIP CULTURE. GIVE EPOGEN WITH NEXT HD.
--- NOTE | 2018-04-29 19:13 | NUR ---
patient stable. no adverse events. midline intact clean dry patent. all due meds given and all needs met. care endorsed to rn for lora. aspiration, skin, and safety precautions in place.
[2018-04-29] MEDS: ATORVASTATIN 10 MG TABLET GT SCH (22:06)
[2018-04-30] VITALS: BP 100/47
[2018-04-30] MEDS: IPRATROPIUM NEB FS 0.5 MG/2.5 ML AMPUL.NEB NEB SCH ×4 (02:08→20:08)
[2018-04-30] MEDS: ALBUTEROL HALF STRENGTH 1.25 MG/3 ML VIAL.NEB NEB SCH ×4 (02:08→20:08)
[2018-04-30 04:00] VITALS: BP 115/44
[2018-04-30] MEDS: BLOOD SUGAR DIAGNOSTIC 1 EACH STRIP IN SCH ×4 (06:24→23:55)
[2018-04-30] MEDS: INSULIN REGULAR, HUMAN 100 UNIT/ML 3 ML VIAL SQ PRN ×4 (06:25→23:57)
--- NOTE | 2018-04-30 07:00 | NUR ---
RT RECEIVED PT ON VENT WITH NOTED SETTINGS, VICE PRESIDENT RESEARCH DONE AND TRACH IS SECURE. VENT ALARMS CHECKED AND AUDIBLE. VENT PLUGGED IN RED OUTLET. AMBU BAG NOTED HOB. SX WITH MOD THK RODRIGUES SECRETIONS. PT TOLERATING SETTINGS WELL. NO RESP DISTRESS NOTED. WILL CONTINUE TO MONITOR T/O SHIFT.
--- NOTE | 2018-04-30 07:03 | NUR ---
RN NOTE PATIENT IS STABLE, NO RESPIRATORY DISTRESS NOTED, ALL SAFETY MEASURES TAKEN, WILL ENDORSE TO AM SHIFT FOR ELISEO
--- NOTE | 2018-04-30 07:15 | NUR ---
RN INITIAL NOTES: REC'D PT AWAKE ON BED, NOT IN ANY DISTRESS, A/O X1. ON MV VIA TRACH, SATING AT 100%. ON TELEMONITOR, SR 98 BPM. HAS GT, ON CONT TF NEPRO X 40 CC/HR INFUSING WELL, NO RESIDUAL NOTED UPON CHECKING. HAS R AXILLARY MIDLINE, SL, PATENT & INTACT W/ NO S/SX OF INFECTION/INFILTRATION NOTED. HAS R FEMORAL HD CATH, PER REPORT ITS NOT WORKING, FOR HD CATH INSERTION. PROVIDED COMFORT & SAFETY MEASURES. BED KEPT LOW & IN LOCKED POS. CALL LIGHT PLACED W/IN REACH. WILL CONT TO MONITOR & ATTEND PT NEEDS.
[2018-04-30 07:17] LABS: CARBON DIOXIDE 21 mmol/L (21-32); CHLORIDE 91 mmol/L (98-107); GLUCOSE 172 mg/dL (74-106); SODIUM SERUM 130 mmol/L (136-145)
--- NOTE | 2018-04-30 07:17 | NUR ---
RT PLACED PT ON CPAP MODE WITH PS [address] ALMEIDA.
[2018-04-30 07:39] LABS: CREATININE 5.3 mg/dL (0.6-1.3)
[2018-04-30 07:56] LABS: UREA NITROGEN, BLOOD 125 mg/dL (7-18)
[2018-04-30 08:00] VITALS: BP 135/35
[2018-04-30] MEDS: CHLORHEXIDINE GLUCONATE 15 ML UDC MM SCH ×2 (08:26→21:19)
[2018-04-30] MEDS: SEVELAMER CARBONATE 0.8 GM POWD.PACK GT SCH ×3 (08:27→17:39)
[2018-04-30] MEDS: PANTOPRAZOLE 40 MG/PACK PACK GT SCH ×2 (08:27→21:17)
[2018-04-30] MEDS: LEVOTHYROXINE SODIUM 75 MCG TABLET GT SCH (08:27)
[2018-04-30] MEDS: ASCORBIC ACID 500 MG TABLET GT SCH (08:27)
[2018-04-30] MEDS: ACIDOPHILUS/BULGARICUS 1 EACH TAB.CHEW GT SCH (08:27)
[2018-04-30] MEDS: HYDROCODONE/APAP 5/325MG 1 EACH TABLET GT SCH (08:28)
[2018-04-30] MEDS: MIDODRINE HCL (5MG) 5 MG TABLET GT SCH ×3 (08:29→17:38)
[2018-04-30] MEDS: Z GUARD REMEDY 2 OZ OINT TP SCH (08:29)
[2018-04-30] MEDS: CADEXOMER IODINE 40 GM TUBE TP SCH (08:30)
[2018-04-30] MEDS: VIT B CMPLX 3/FA/VIT C/BIOTIN 1 TAB TABLET PO SCH (08:37)
--- NOTE | 2018-04-30 09:00 | NUR ---
PT SEEN & EXAMINED BY DR. VINCENT, UPDATED ABOUT THE PT'S STATUS - FOR HD CATH INSERTION.
--- NOTE | 2018-04-30 09:08 | NUR ---
RELAYED ABG RESULTS TO DR. ALMEIDA W/ CAMRYN TO TITRATE FIO2. RT MADE AWARE.
[2018-04-30 09:09] LABS: ABG BASE EXCESS -1.8 mmol/L; ABG OXYGEN SATURATION 98.7 % (92.0-98.5); ABG PCO2 33.5 mmHg (35.0-45.0); ABG PH 7.438 (7.350-7.450); AaDO2 89.7 mmHg; COHb 1.2 % (0.5-1.5); MetHb 0.4 % (0.0-1.5); O2Hb 97.1 % (94.0-97.0); PEEP,BG 5 cm H2O; SITE, ABG Right Brachial; VENT MODE, BG CPAP PS 12
--- NOTE | 2018-04-30 09:10 | NUR ---
RT ABG DONE. AND RELAYED ABG RESULTS TO MAKEDA GU.
--- NOTE | 2018-04-30 10:15 | NUR ---
CALLED ETSRELLITA PEREIRA (DAUGHTER), GOT TELEPHONE CONSENT FOR HD CATH INSERTION. CN CONFIRMED.
[2018-04-30] MEDS: INSULIN GLARGINE, 100 UNIT/ML CARTRIDGE SQ SCH ×2 (10:18→21:37)
[2018-04-30] MEDS: NEPRO 1,000 ML BOTTLE GT PRN (11:04)
[2018-04-30 12:00] VITALS: BP_SYST 122; BP_SYST 154; BP_DIAS 31; BP_DIAS 8
[2018-04-30 16:00] VITALS: BP 148/38
--- NOTE | 2018-04-30 18:54 | NUR ---
RN CLOSING NOTES: NO ACUTE CHANGES NOTED W/IN SHIFT. PT TOLERATED MV VIA TRACH, NO SOB. ON TELEMONITOR, STILL SR. CONT TF NEPRO X 40 CC/HR TOLERATED WELL, NO RESIDUAL W/IN SHIFT. R AXILLARY MIDLINE, SL, KEPT PATENT & INTACT W/ NO S/SX OF INFECTION/INFILTRATION NOTED. R FEMORAL HD CATH, STILL IN PLACE. FOR HD CATH INSERTION, PER DR. TY HE WILL INSERT IT TODAY, SUPPLIES AT BEDSIDE, CONSENT IN. CALLED LAB TO BRING BOTTLES FOR BLOOD CX (DR. TY TO DRAW BLOOD FROM NEW CATH). KEPT WELL RESTED. NEEDS ATTENDED. BED KEPT LOW & IN LOCKED POS. CALL LIGHT PLACED W/IN REACH. WILL ENDORSE TO PM RN FOR ELISEO. NEPHEW AT BEDSIDE.
--- NOTE | 2018-04-30 19:30 | NUR ---
TD RN: RECEIVED CHRONIC TRACH PT WT CPAP SETTINGS ORDERED. ALERT AND AWAKE, NODS HEADS WHEN TALKS TO BUT UNABLE TO FOLLOW SIMPLE COMMANDS. NO ACUTE DISTRESS, NO EVIDENCE OF DISCOMFORT. SR ON TELE MONITOR. AFEBRILE. GTF TOLERATING WELL WT 5CC RESIDUAL. STILL AWAITING FOR DNP COSTA TO REPLACE HD CATHETER. RT. AXILLARY MIDLINE TKO WT NO S/S OF INFILTRATION. HOB AT 45 DEGREES. SAFETY AND ASPIRATION PRECAUTION NOTED. WILL CONTINUE TO MONITOR.
[2018-04-30 20:00] VITALS: BP 142/26
[2018-04-30] MEDS: ATORVASTATIN 10 MG TABLET GT SCH (21:18)
--- NOTE | 2018-04-30 22:00 | NUR ---
TD RN: FOLLOWED UP WT DR. MELONY SKELTON FOR NEW HD CATH INSERTION AND DNP SAID HE WILL PERFORM PROCEDURE IN AM.
[2018-05-01] VITALS (52 sets, daily range): BP systolic 70–156; BP diastolic 26–74
[2018-05-01] MEDS: IPRATROPIUM NEB FS 0.5 MG/2.5 ML AMPUL.NEB NEB SCH ×4 (01:03→19:23)
[2018-05-01] MEDS: ALBUTEROL HALF STRENGTH 1.25 MG/3 ML VIAL.NEB NEB SCH ×4 (01:03→19:23)
--- NOTE | 2018-05-01 04:00 | NUR ---
TD RN: PT NOTED WT MODERATE AMT. OF DARK BROWN WT BLOODY SOFT FORMED STOOLS. HAD RECENT POSITIVE OCCULT BLOOD RESULT WT NO NEW ORDER FROM MD. BED BATH GIVEN, GOOD VENECIA CARE RENDERED AND TOLERATED FAIRLY.
[2018-05-01] MEDS: BLOOD SUGAR DIAGNOSTIC 1 EACH STRIP IN SCH ×3 (05:54→17:12)
[2018-05-01] MEDS: INSULIN REGULAR, HUMAN 100 UNIT/ML 3 ML VIAL SQ PRN ×2 (05:56→18:23)
[2018-05-01 07:12] LABS: CALCIUM, SERUM 9.4 mg/dL (8.5-10.1); CARBON DIOXIDE 22 mmol/L (21-32); CHLORIDE 89 mmol/L (98-107); CREATININE 5.9 mg/dL (0.6-1.3); GLUCOSE 170 mg/dL (74-106); POTASSIUM 4.4 mmol/L (3.5-5.1); SODIUM SERUM 128 mmol/L (136-145)
[2018-05-01 07:13] LABS: UREA NITROGEN, BLOOD 146 mg/dL (7-18)
--- NOTE | 2018-05-01 08:00 | NUR ---
[facility] RN OPENING NOTES: RECEIVED PT AWAKE ON BED, NOT IN ANY DISTRESS, A/O X1. ON MV VIA TRACH, SATING AT 100%. ON TELEMONITOR, SR 93 BPM. HAS GT, ON CONT TF NEPRO X 40 CC/HR INFUSING WELL. HAS R AXILLARY MIDLINE, SL, PATENT & INTACT W/ NO S/SX OF INFECTION/INFILTRATION NOTED. HAS R FEMORAL HD CATH, PER REPORT ITS NOT WORKING, FOR HD CATH INSERTION.SAFETY MEASURES MAINTAINED . BED KEPT LOW & IN LOCKED POS. CALL LIGHT PLACED W/IN REACH. WILL CONT TO MONITOR .
--- NOTE | 2018-05-01 09:00 | NUR ---
RN NOTES SEEN BY MADE AWARE ABOUT ALL THE ABNORMAL LABS WITH [id number],CREATININE IS 5.9.WAITING FOR DIALYSIS CATH INSERTION AND HEMODIALYSIS.NO SOB NO DISTRESS NOTED AT THIS TIME.
[2018-05-01] MEDS: PANTOPRAZOLE 40 MG/PACK PACK GT SCH ×2 (09:49→21:09)
[2018-05-01] MEDS: LEVOTHYROXINE SODIUM 75 MCG TABLET GT SCH (09:49)
[2018-05-01] MEDS: CHLORHEXIDINE GLUCONATE 15 ML UDC MM SCH ×2 (09:49→21:09)
[2018-05-01] MEDS: SEVELAMER CARBONATE 0.8 GM POWD.PACK GT SCH ×3 (09:49→17:11)
[2018-05-01] MEDS: VIT B CMPLX 3/FA/VIT C/BIOTIN 1 TAB TABLET PO SCH (09:49)
[2018-05-01] MEDS: MIDODRINE HCL (5MG) 5 MG TABLET GT SCH ×3 (09:50→17:12)
[2018-05-01] MEDS: HYDROCODONE/APAP 5/325MG 1 EACH TABLET GT SCH (09:50)
[2018-05-01] MEDS: ACIDOPHILUS/BULGARICUS 1 EACH TAB.CHEW GT SCH (09:50)
[2018-05-01] MEDS: ASCORBIC ACID 500 MG TABLET GT SCH (09:50)
[2018-05-01] MEDS: CADEXOMER IODINE 40 GM TUBE TP SCH (09:51)
[2018-05-01] MEDS: Z GUARD REMEDY 2 OZ OINT TP SCH (09:52)
[2018-05-01] MEDS: INSULIN GLARGINE, 100 UNIT/ML CARTRIDGE SQ SCH ×2 (10:04→21:12)
[2018-05-01 10:37] LABS: ABG BASE EXCESS -6.3 mmol/L; ABG OXYGEN SATURATION 98.8 % (92.0-98.5); ABG PCO2 21.2 mmHg (35.0-45.0); ABG PH 7.497 (7.350-7.450); ABG PO2 153.1 mmHg (75.0-100.0); AaDO2 107.7 mmHg; COHb 1.1 % (0.5-1.5); MetHb 0.2 % (0.0-1.5); O2Hb 97.5 % (94.0-97.0); SITE, ABG Right Radial; VENT MODE, BG CA 40%
--- NOTE | 2018-05-01 10:40 | NUR ---
RN NOTES MADE AWARE ABOUT THE DIALYSIS CATH INSERTION.
[2018-05-01 11:23] LABS: ABG BASE EXCESS -8.4 mmol/L; ABG OXYGEN SATURATION 99.7 % (92.0-98.5); ABG PCO2 36.8 mmHg (35.0-45.0); ABG PH 7.293 (7.350-7.450); ABG PO2 438.2 mmHg (75.0-100.0); COHb 1.2 % (0.5-1.5); MetHb 0.3 % (0.0-1.5); O2Hb 98.2 % (94.0-97.0); PEEP,BG 5 cm H2O; SITE, ABG Right Femoral; VT, ABG 450 mL
--- NOTE | 2018-05-01 12:15 | NUR ---
RT NOTE RECEIVED PT FROM [facility] ON AC 18,450,+5, 100% VENT PLUGGED INTO RED OUTLET AMBUBAG AT BEDSIDE TRACH PATENT AND SECURE. WILL MONITOR CLOSELY
--- NOTE | 2018-05-01 12:15 | NUR ---
RN NOTES 1050 PATIENT NOTED WITH HEART RATE OF 30 ON MONITOR.UNRESPONSIVE,UNABLE TO READ PULSE OX.UNABLE TO FEEL PULSE .CODE BLUE CALLED. AT BEDSIDE.STARTED CPR. AGONAL RHYTHM IN THE MONITOR.EPI GIVEN.CODE ENDED AT 1105.CODE WAS SUCCESSFUL.PATIENT IS BACK TO VENTILATOR WITH HR OF 125 BP 211/62 RR 23 QEB411%.DR SKELTON PUT R IJ DIALYSIS CATHETER.SITE IS INTACT AND DRESSING ON. MADE AWARE.FAMILY MADE AWARE.LEFT MESSAGE TO SISTER JERICHO WAGNER PATIENT TRANSFERRED TO ICU.REPORT GIVEN TO NURSE MACKEY.AT 1205.
--- NOTE | 2018-05-01 12:15 | NUR ---
PATIENT TRANSFERRED FROM [facility]-S/P CODE BLUE. PATIENT PLACED ON FULL VENT SUPPORT BY RT, MONITOR SHOWING SR 80'S WITH WEAK PERIPHERAL PULSES. SBP >90'S. OPENS AND CLOSES EYES SPONTANEOUSLY BUT NOT TO COMMAND. WITHDRAWS TO PAIN STIMULI. MONITORED CLOSELY.
--- NOTE | 2018-05-01 12:35 | NUR ---
PATIENT SISTER JERICHO ( NEXT OF KIN) UPDATED WITH PATIENT CONDITION VIA PHONE.
--- NOTE | 2018-05-01 13:45 | NUR ---
PATIENT SEEN BY DR. ALMEIDA. COMPLETE BED BATH -STILL HEVING MINIMAL BLACK TARRY STOOL NOTED. SKIN CARE PROVIDED.
--- NOTE | 2018-05-01 15:05 | NUR ---
RN NOTES SEEN BY MADE AWARE ABOUT ALL THE ABNORMAL LABS WITH [id number],CREATININE IS 5.9.WAITING FOR DIALYSIS CATH INSERTION AND HEMODIALYSIS.NO SOB NO DISTRESS NOTED AT THIS TIME. Addendum: 05/01/18 at 1543 by ARPITA PONCE RN WRONG TIME DOCUMENTED.SEEN AT 0900
[2018-05-01 15:33] LABS: ABG BASE EXCESS -3.2 mmol/L; ABG PCO2 33.4 mmHg (35.0-45.0); ABG PH 7.416 (7.350-7.450); ABG PO2 124.5 mmHg (75.0-100.0); AaDO2 555.1 mmHg; COHb 1.1 % (0.5-1.5); MetHb 0.6 % (0.0-1.5); O2Hb 96.3 % (94.0-97.0); SITE, ABG Left Radial
--- NOTE | 2018-05-01 15:35 | NUR ---
RT NOTE DECREASED FIO2 TO 60%, PER DR ALMEIDA DUE TO ABG RESULTS
--- NOTE | 2018-05-01 16:00 | NUR ---
ABG REPEATED. RESULTS SEEN BY DR. ALMEIDA-NO VENT CHANGES PER MD. TITRATED DOWN FIO2 TO 60% BY RT. PATIENT BP REMAINS STABLE.
[2018-05-01] MEDS ORDERED: ALBUMIN 25% 25 GM in PREMIX 1 EA IV PRN (17:30)
--- NOTE | 2018-05-01 17:30 | NUR ---
PATIENT SEEN BY DR. VINCENT-NO NEW ORDER GIVEN. HD STARTED PER RENAL MD ORDERS.
[2018-05-01] MEDS: NEPRO 1,000 ML BOTTLE GT PRN (17:38)
[2018-05-01] MEDS ORDERED: EPINEPHRINE (1:10,000) SYRINGE 1 MG/10 ML DISP.SYRIN IVP ONE (17:39)
--- NOTE | 2018-05-01 18:30 | NUR ---
ONGOING DIALYSIS. BP STABLE.
[2018-05-01] MEDS: GENTAMICIN 80 MG in IV D5W 50 ML IV PRN (20:11)
[2018-05-01] MEDS: ATORVASTATIN 10 MG TABLET GT SCH (21:10)
--- NOTE | 2018-05-01 21:16 | NUR ---
SALES TEAM LEADER. INITIAL ASSESSMENT. RECEIVED THE PT REST ON THE BED, AWAKE, OPEN EYES, DOES NOT FOLLOW COMMANDS. TRACH TO VENT CONNECTED, PT IS OBTUNDED. OUTREACH AND EDUCATION SOCIAL WORKER SHOWING NSR. TRACH PORTEX#8, AC 18,FIO2 60%TV 450, PEEP 5, SAT 98%. IV RT UPPER ARM MID LINE .SALINE LOCK. HD OLD CATH RT FEMORAL. RT IJ HD CATH, HD DONE TODAY. 1500ML REMOVED. GT INTACT,. NEPRO 40ML/H. HOB ELEVATED. TURN AND REPOSITION Q2H. KELLIE LOWER EXTREMITY RIGID. WILL CONTINUE TO MONITOR VITALS.
[2018-05-02] VITALS (43 sets, daily range): BP systolic 84–137; BP diastolic 23–69
[2018-05-02] MEDS: BLOOD SUGAR DIAGNOSTIC 1 EACH STRIP IN SCH ×4 (00:33→17:57)
[2018-05-02] MEDS: INSULIN REGULAR, HUMAN 100 UNIT/ML 3 ML VIAL SQ PRN ×3 (00:33→13:09)
[2018-05-02] MEDS: ALBUTEROL HALF STRENGTH 1.25 MG/3 ML VIAL.NEB NEB SCH ×4 (01:19→19:19)
[2018-05-02] MEDS: IPRATROPIUM NEB FS 0.5 MG/2.5 ML AMPUL.NEB NEB SCH ×4 (01:19→19:19)
--- NOTE | 2018-05-02 01:43 | NUR ---
RT PT RECEIVED W A PORTEX 8 ON A VENT W NOTED SETTINGS. ALARMS ARE ON AND AUDIBLE W VENT PLUGGED INTO RED OUTLET AND AMBUBAG @ BEDSIDE. PT IS AWAKE AND TOLERATING VENT SETTINGS WELL. METAL ROASTER CUFF PRESSURE NOTED. MODERATE AMOUNTS OF BLOOD TINGED SPUTUM OBSERVED. WILL CONTINUE TO MONITOR. Addendum: 05/02/18 at 0145 by STEPHANI BALBUENA RT Amended: Links added.
--- NOTE | 2018-05-02 02:52 | NUR ---
ROOM MAID. AM CARE. ORAL CARE, BED BATH GIVEN. LINEN CHANGED, REMAINING SAME VENT SETTING TOLERATED WELL. SAT 98%. NO ACUTE DISTRESS NOTED. TELEVISION TUBE INSPECTOR SHOWING NSR, IV RT UPPER ARM MID LINE SALINE LOCK. GT FEEDING TOLERATED WELL. HOB ELEVATED. TURN AND REPOSITION Q2H. WILL CONTINUE TO MONITOR VITALS. WOUND DRESSING DONE.
[2018-05-02 04:42] LABS: CALCIUM, SERUM 8.7 mg/dL (8.5-10.1); CARBON DIOXIDE 26 mmol/L (21-32); CHLORIDE 98 mmol/L (98-107); CREATININE 3.7 mg/dL (0.6-1.3); GLUCOSE 173 mg/dL (74-106); POTASSIUM 3.4 mmol/L (3.5-5.1); SODIUM SERUM 136 mmol/L (136-145)
[2018-05-02 04:57] LABS: UREA NITROGEN, BLOOD 80 mg/dL (7-18)
--- NOTE | 2018-05-02 08:15 | NUR ---
RN NOTE OLD R FEMORAL HD CATHETER REMOVED BY DR GIBBONS AT BEDSIDE, PRESSURE APPLIED, PRESSURE DRESSING APPLIED, MINIMAL BLEEDING NOTED. WILL MONITOR PT CLOSELY.
[2018-05-02] MEDS: LEVOTHYROXINE SODIUM 75 MCG TABLET GT SCH (08:33)
[2018-05-02] MEDS: SEVELAMER CARBONATE 0.8 GM POWD.PACK GT SCH ×3 (08:33→17:57)
[2018-05-02] MEDS: VIT B CMPLX 3/FA/VIT C/BIOTIN 1 TAB TABLET PO SCH (08:35)
[2018-05-02] MEDS: ACIDOPHILUS/BULGARICUS 1 EACH TAB.CHEW GT SCH (08:35)
[2018-05-02] MEDS: MIDODRINE HCL (5MG) 5 MG TABLET GT SCH ×3 (08:35→17:57)
[2018-05-02] MEDS: CHLORHEXIDINE GLUCONATE 15 ML UDC MM SCH ×2 (08:35→21:43)
[2018-05-02] MEDS: ASCORBIC ACID 500 MG TABLET GT SCH (08:35)
[2018-05-02] MEDS: PANTOPRAZOLE 40 MG/PACK PACK GT SCH ×2 (08:35→21:43)
[2018-05-02] MEDS: Z GUARD REMEDY 2 OZ OINT TP SCH (08:36)
[2018-05-02] MEDS: ACETAMINOPHEN 650 MG/20.3 ML UDC GT PRN (08:40)
[2018-05-02] MEDS: INSULIN GLARGINE, 100 UNIT/ML CARTRIDGE SQ SCH ×2 (08:42→21:00)
[2018-05-02] MEDS: HYDROCODONE/APAP 5/325MG 1 EACH TABLET GT SCH (09:00)
[2018-05-02 09:16] LABS: ABG BASE EXCESS -0.6 mmol/L; ABG OXYGEN SATURATION 99.2 % (92.0-98.5); ABG PH 7.452 (7.350-7.450); ABG PO2 212.3 mmHg (75.0-100.0); AaDO2 178.1 mmHg; COHb 1.5 % (0.5-1.5); MetHb 0.1 % (0.0-1.5); O2Hb 97.6 % (94.0-97.0); SITE, ABG Right Radial; VENT MODE, BG AC 18 450 60% +5
[2018-05-02] MEDS: CADEXOMER IODINE 40 GM TUBE TP SCH (13:07)
[2018-05-02] MEDS: MEROPENEM 500 MG in IV NS 0.9% 100 ML IV SCH (14:10)
[2018-05-02] MEDS: GENTAMICIN 80 MG in IV D5W 50 ML IV PRN (15:53)
--- NOTE | 2018-05-02 15:53 | NUR ---
RN NOTE GENTAMICIN 80 MG IV POST HD ADMINISTERED, MANUALLY ENTERED IN eMAR DUE TO UNABLE TO SCAN BARCODE ON THE MEDICATION. PHARMACY NOTIFIED.
[2018-05-02 16:26] LABS: HEMOGLOBIN 6.9 g/dL (11.5-14.8)
--- NOTE | 2018-05-02 17:16 | NUR ---
RN NOTE EPOGEN SCHEDULED FOR 04/29/18, WAS NOT GIVEN, FOLLOWED UP WITH DR BAIG, SHE OKAYED TO GIVE DOSE TODAY. PT HAD HD TODAY, NO FLUID REMOVED. H/H 6.07/04, WILL FOLLOW UP WITH PHARMACY.
[2018-05-02] MEDS ORDERED: EPOETIN ALFA (10,000 UNIT) 10,000 UNIT/ML VIAL IV SCH (18:00)
[2018-05-02] MEDS ORDERED: EPOETIN ALFA (10,000 UNIT) 10,000 UNIT/ML VIAL IV ONE (18:00)
--- NOTE | 2018-05-02 18:00 | NUR ---
RN NOTE SPOKE WITH DR BAIG REGARDING H/H 6.07/04, DR WANT 1 UNIT PRBC TRANSFUSED IF APPROVED BY NEPHROLOGY DOCTOR. LATER SPOKE WITH DR LAKE AND HE APPROVED TO TRANSFUSE. WILL ORDER BLOOD TRANSFUSION.
[2018-05-02] MEDS: NEPRO 1,000 ML BOTTLE GT PRN (19:53)
--- NOTE | 2018-05-02 20:00 | NUR ---
ICU NOTES RECEIVED PT W/ EYES OPEN,DOES NOT TRACK,DOES NOT FOLLOW COMMANDS ON VENT PER TRACH 45% FI02 SAT RANGING FROM 92-100%.SUCTIONED FOR SCANT AMT. SECRETIONS.TRACH DRESSING CHANGED.
--- NOTE | 2018-05-02 20:45 | NUR ---
ICU NOTES 1 UNIT PRBC HANG FOR HGB OF 6.9 ORDERED.
[2018-05-02] MEDS: ATORVASTATIN 10 MG TABLET GT SCH (21:43)
--- NOTE | 2018-05-02 23:35 | NUR ---
ICU/RN BLOOD TRANSFUSION FINISHED,NO TRANSFUSION REACTION.VITAL SIGNS STABLE.
[2018-05-03] VITALS (38 sets, daily range): BP systolic 97–154; BP diastolic 36–59
[2018-05-03] MEDS: MEROPENEM 500 MG in IV NS 0.9% 100 ML IV SCH ×2 (00:48→12:05)
[2018-05-03] MEDS: BLOOD SUGAR DIAGNOSTIC 1 EACH STRIP IN SCH ×6 (00:49→23:48)
[2018-05-03] MEDS: INSULIN REGULAR, HUMAN 100 UNIT/ML 3 ML VIAL SQ PRN ×3 (00:53→12:07)
[2018-05-03] MEDS: ALBUTEROL HALF STRENGTH 1.25 MG/3 ML VIAL.NEB NEB SCH ×4 (01:23→19:28)
[2018-05-03] MEDS: IPRATROPIUM NEB FS 0.5 MG/2.5 ML AMPUL.NEB NEB SCH ×4 (01:23→19:28)
--- NOTE | 2018-05-03 02:00 | NUR ---
ICU/RN REQUIRING FREQUENT SUCTIONING FROM ETT AND MOUTH,ORAL CARE DONE .TRACH CARE DONE
[2018-05-03 05:28] LABS: CALCIUM, SERUM 8.6 mg/dL (8.5-10.1); CARBON DIOXIDE 31 mmol/L (21-32); CHLORIDE 98 mmol/L (98-107); CREATININE 2.3 mg/dL (0.6-1.3); GLUCOSE 165 mg/dL (74-106); POTASSIUM 3.9 mmol/L (3.5-5.1); SODIUM SERUM 135 mmol/L (136-145); UREA NITROGEN, BLOOD 43 mg/dL (7-18)
--- NOTE | 2018-05-03 06:00 | NUR ---
ICU/RN TOLERATING TUBE FEEDING WELL.
[2018-05-03] MEDS: CHLORHEXIDINE GLUCONATE 15 ML UDC MM SCH ×2 (08:10→21:19)
[2018-05-03] MEDS: ASCORBIC ACID 500 MG TABLET GT SCH (08:11)
[2018-05-03] MEDS: VIT B CMPLX 3/FA/VIT C/BIOTIN 1 TAB TABLET PO SCH (08:11)
[2018-05-03] MEDS: HYDROCODONE/APAP 5/325MG 1 EACH TABLET GT SCH (08:11)
[2018-05-03] MEDS: ACIDOPHILUS/BULGARICUS 1 EACH TAB.CHEW GT SCH (08:11)
[2018-05-03] MEDS: LEVOTHYROXINE SODIUM 75 MCG TABLET GT SCH (08:11)
[2018-05-03] MEDS: MIDODRINE HCL (5MG) 5 MG TABLET GT SCH ×3 (08:11→17:18)
[2018-05-03] MEDS: SEVELAMER CARBONATE 0.8 GM POWD.PACK GT SCH ×3 (08:11→17:19)
[2018-05-03] MEDS: PANTOPRAZOLE 40 MG/PACK PACK GT SCH (08:12)
[2018-05-03] MEDS: Z GUARD REMEDY 2 OZ OINT TP SCH (08:12)
[2018-05-03] MEDS: CADEXOMER IODINE 40 GM TUBE TP SCH (08:12)
[2018-05-03 08:29] LABS: BASOPHILS % (AUTO) 0.2 % (0.0-2.0); EOSINOPHILS % (AUTO) 1.4 % (0.0-6.0); HEMATOCRIT 25 % (33-45); HEMOGLOBIN 8.1 g/dL (11.5-14.8); LYMPHOCYTES # (AUTO) 2.3 /CMM (0.8-4.8); LYMPHOCYTES % (AUTO) 14.4 % (20.0-44.0); MEAN CORPUSCULAR HEMOGLOBIN 29 PG (26.0-33.0); MEAN CORPUSCULAR HGB CONC 32 g/dl (31.0-36.0); MEAN CORPUSCULAR VOLUME 89 fL (82-100); MONOCYTES # (AUTO) 0.6 /CMM (0.1-1.30); MONOCYTES % (AUTO) 3.5 % (2.0-12.0); NEUTROPHILS # (AUTO) 12.9 /CMM (1.8-8.9); NEUTROPHILS % (AUTO) 80.5 % (43.0-81.0); PLATELET COUNT (AUTO) 324 /CMM (150-450); RDW COEFFICIENT OF VARIATION 18.4 (11.5-15.0); RED BLOOD CELL COUNT(AUTO) 2.83 MIL/uL (4.0-5.2); WHITE BLOOD COUNT (AUTO) 16.1 K/uL (4.3-11.0)
[2018-05-03] MEDS: INSULIN GLARGINE, 100 UNIT/ML CARTRIDGE SQ SCH ×2 (08:47→21:00)
[2018-05-03 11:43] LABS: ABG BASE EXCESS 6.5 mmol/L; ABG OXYGEN SATURATION 97.5 % (92.0-98.5); ABG PCO2 38.3 mmHg (35.0-45.0); ABG PH 7.511 (7.350-7.450); AaDO2 131.2 mmHg; COHb 0.3 % (0.5-1.5); MetHb 0.3 % (0.0-1.5); O2Hb 96.9 % (94.0-97.0); PEEP,BG 5 cm H2O; SITE, ABG Right Radial; VT, ABG 450 mL
[2018-05-03] MEDS: PANTOPRAZOLE 40 MG VIAL IV SCH (16:27)
--- NOTE | 2018-05-03 19:17 | NUR ---
rn closing note pt had 1 unit prbcs transfused, tolerated well. dr Pino came and saw pt, bloody stool and h/h reported, no procedure at this time, monitor h/h, protonix iv q12h, and to continue tube feeding. will endorse.
--- NOTE | 2018-05-03 20:30 | NUR ---
RECEIVED TRACHED PT ON VENT PTX 8 ON AC MODE. TOLERATING VENT SETTINGS. SX'D FOR SML AMT OF THICK WHITE SECRETIONS. VENT ALARMS SET AND AUDIBLE. TRACH IS SECURED, CUFF GEAR LAPPER. VENT PLUGGED INTO RED OUTLET. AMBU BAG AT BEDSIDE. WILL CONTINUE TO MONITOR. Addendum: 05/03/18 at 2031 by ARBEN CONDE RT Amended: Links added.
[2018-05-03] MEDS: ATORVASTATIN 10 MG TABLET GT SCH (21:45)
--- NOTE | 2018-05-03 23:00 | NUR ---
ICU/RN LANTUS NOT GIVEN BLOOD SUGAR =113MG/DL.DUE FOR ACCU CHECK AT MIDNIGHT.REPOSITIONED AND TURNED.
[2018-05-04] VITALS (27 sets, daily range): BP systolic 94–154; BP diastolic 36–73
--- NOTE | 2018-05-04 | NUR ---
ICU/RN ACCU KZNAA=[id number],NO INSULIN REQUIRED.
[2018-05-04] MEDS: MEROPENEM 500 MG in IV NS 0.9% 100 ML IV SCH (01:13)
[2018-05-04] MEDS: ALBUTEROL HALF STRENGTH 1.25 MG/3 ML VIAL.NEB NEB SCH ×4 (01:22→20:09)
[2018-05-04] MEDS: IPRATROPIUM NEB FS 0.5 MG/2.5 ML AMPUL.NEB NEB SCH ×4 (01:23→20:09)
[2018-05-04] MEDS: PANTOPRAZOLE 40 MG VIAL IV SCH ×2 (04:13→16:49)
[2018-05-04 05:19] LABS: BASOPHILS # (AUTO) 0.1 /CMM (0.0-0.2); BASOPHILS % (AUTO) 0.6 % (0.0-2.0); EOSINOPHILS % (AUTO) 1.4 % (0.0-6.0); HEMATOCRIT 28 % (33-45); HEMOGLOBIN 9.2 g/dL (11.5-14.8); LYMPHOCYTES # (AUTO) 2.8 /CMM (0.8-4.8); LYMPHOCYTES % (AUTO) 17.4 % (20.0-44.0); MEAN CORPUSCULAR HEMOGLOBIN 29 PG (26.0-33.0); MEAN CORPUSCULAR HGB CONC 33 g/dl (31.0-36.0); MEAN CORPUSCULAR VOLUME 89 fL (82-100); MONOCYTES # (AUTO) 0.4 /CMM (0.1-1.30); MONOCYTES % (AUTO) 2.7 % (2.0-12.0); NEUTROPHILS # (AUTO) 12.6 /CMM (1.8-8.9); NEUTROPHILS % (AUTO) 77.9 % (43.0-81.0); PLATELET COUNT (AUTO) 326 /CMM (150-450); RDW COEFFICIENT OF VARIATION 17.8 (11.5-15.0); RED BLOOD CELL COUNT(AUTO) 3.12 MIL/uL (4.0-5.2); WHITE BLOOD COUNT (AUTO) 16.2 K/uL (4.3-11.0)
[2018-05-04 05:39] LABS: CALCIUM, SERUM 9.1 mg/dL (8.5-10.1); CARBON DIOXIDE 29 mmol/L (21-32); CHLORIDE 97 mmol/L (98-107); CREATININE 3.2 mg/dL (0.6-1.3); GLUCOSE 164 mg/dL (74-106); POTASSIUM 4.3 mmol/L (3.5-5.1); SODIUM SERUM 133 mmol/L (136-145); UREA NITROGEN, BLOOD 64 mg/dL (7-18)
--- NOTE | 2018-05-04 06:00 | NUR ---
ICU/RN VITAL SIGNSSTABLE.MONITOR NSR.TOLERATING TUBE FEEDING W/ SCANT RESIDUAL.
[2018-05-04 06:01] LABS: GENTAMICIN,TROUGH 4.5 ug/ml (0.2-2.0)
[2018-05-04] MEDS: NEPRO 1,000 ML BOTTLE GT PRN ×2 (06:42→06:45)
--- NOTE | 2018-05-04 07:12 | NUR ---
RN INITIAL NOTES: REC'D PT AWAKE ON BED, NOT IN ANY DISTRESS, A/O X1. ON MV VIA TRACH, SATING AT 100%. ON TELEMONITOR, SR 89 BPM. HAS GT, ON CONT TF NEPRO X 40 CC/HR INFUSING WELL, NO RESIDUAL NOTED UPON CHECKING. HAS R AXILLARY MIDLINE, SL, PATENT & INTACT W/ NO S/SX OF INFECTION/INFILTRATION NOTED. HAS R IJ HD CATH, INTACT W/ NO BLEEDING NOTED. PROVIDED COMFORT & SAFETY MEASURES. BED KEPT LOW & IN LOCKED POS. CALL LIGHT PLACED W/IN REACH. WILL CONT TO MONITOR & ATTEND PT NEEDS.
--- NOTE | 2018-05-04 07:14 | NUR ---
ICU/RN REPORT AND CARE OF PT. GIVEN TO RICCARDO ASHFORD.
--- NOTE | 2018-05-04 08:00 | NUR ---
Pt seen & examined by Dr. Bird, updated about pt condition.
[2018-05-04] MEDS: CHLORHEXIDINE GLUCONATE 15 ML UDC MM SCH ×2 (08:26→22:56)
[2018-05-04] MEDS: ASCORBIC ACID 500 MG TABLET GT SCH (08:26)
[2018-05-04] MEDS: VIT B CMPLX 3/FA/VIT C/BIOTIN 1 TAB TABLET PO SCH (08:27)
[2018-05-04] MEDS: LEVOTHYROXINE SODIUM 75 MCG TABLET GT SCH (08:27)
[2018-05-04] MEDS: ACIDOPHILUS/BULGARICUS 1 EACH TAB.CHEW GT SCH (08:27)
[2018-05-04] MEDS: SEVELAMER CARBONATE 0.8 GM POWD.PACK GT SCH ×3 (08:27→17:17)
[2018-05-04] MEDS: MIDODRINE HCL (5MG) 5 MG TABLET GT SCH ×3 (08:28→16:49)
[2018-05-04] MEDS: HYDROCODONE/APAP 5/325MG 1 EACH TABLET GT SCH (08:30)
[2018-05-04] MEDS: Z GUARD REMEDY 2 OZ OINT TP SCH (08:32)
[2018-05-04] MEDS: CADEXOMER IODINE 40 GM TUBE TP SCH (08:33)
[2018-05-04] MEDS: INSULIN GLARGINE, 100 UNIT/ML CARTRIDGE SQ SCH ×2 (08:35→22:56)
--- NOTE | 2018-05-04 10:17 | NUR ---
HD started c/o Ahmed. Addendum: 05/04/18 at 1524 by RICCARDO TERRY RN 1430H HD ended w/ 1L output. Pt tolerated well.
[2018-05-04] MEDS: BLOOD SUGAR DIAGNOSTIC 1 EACH STRIP IN SCH ×3 (11:41→23:42)
[2018-05-04] MEDS: INSULIN REGULAR, HUMAN 100 UNIT/ML 3 ML VIAL SQ PRN ×3 (11:42→23:42)
[2018-05-04] MEDS: MEROPENEM 1 G in IV NS 0.9% 100 ML IV SCH ×2 (12:23→23:39)
--- NOTE | 2018-05-04 13:30 | NUR ---
Called lab re: Dr. White orders to add culture for Primaxin for both blood & urine cx, spoke w/ Jonn.
--- NOTE | 2018-05-04 18:30 | NUR ---
MECHANICAL SHOVEL OPERATOR NOTES: Pt transferred via bed to room 117/1, CHEVY status, accompanied by RN & RTs, via ACLS protocol. Pt not in any distress during transfers. Trach & GT kept patent & intact. IV line on R axillary midline kept clean/dry/intact w/ no s/sx of infection & infiltration. HD Cath on R IJ kept in place w/ no bleeding noted. Report given to MAKEDA Perez. All hospital belongings sent w/ the pt. Called Lab, spoke w/ Jonn re: sensitivity for Primaxin, he said that they already spoke w/ Jesus @ [facility] & request being taken care of.
--- NOTE | 2018-05-04 18:38 | NUR ---
CHEVY RN NOTE: RECEIVED PATIENT IN ROOM 117-1 VIA BED ACCOMPANIED BY PRIMARY CARE RN AND RT. PATIENT WAS AWAKE AND NONVERBAL. VENT-TRACH DEPENDENT SATURATING 98%. HOB ELEVATED. ON JUNIOR LINUX SYSTEMS ADMINISTRATOR SR W/ BBB HR= 79. ON GT FEEDING NEPHRO @40CC/HR TOLERATING WELL W/ NO RESIDUAL NOTED. NO FACIAL GRIMACING NOTED. (R) IJ NOTED IN PLACED W/ NO S/S OF INFECTION. (R) AXILLARY MIDLINE NOTED IN PLACED PATENT AND INTACT. BEDSIDE REPORT WAS GIVEN BY MAKEDA GU. REPORT WILL BE GIVEN TO PM SHIFT NURSE FOR CONTINUITY OF CARE.
--- NOTE | 2018-05-04 19:04 | NUR ---
TD RN NOTES RECEIVED PT ON BED. A/OX1. [facility] SETTING SATURATING WELL. ON TELE MONITOR SR WITH BBB 79. GTUBE FEEDING NEPHRO @40CC/HR NO RESIDUAL. IV ACCESS ON RIGHT AXILLARY MIDLINE HL PATENT AND INTACT. HD ACCESS ON RIJ NO SIGN OF BLEEDING OR INFECTION. HEAD OF BED ELEVATED. SIDE RAILS UP. CALL LIGHT WITHIN REACH. BED ALARM ON. WILL CONTINUE TO MONITOR PT CLOSELY.
[2018-05-04] MEDS: ATORVASTATIN 10 MG TABLET GT SCH (22:57)
[2018-05-05] VITALS: BP 151/47
[2018-05-05] MEDS: ALBUTEROL HALF STRENGTH 1.25 MG/3 ML VIAL.NEB NEB SCH ×4 (02:28→20:01)
[2018-05-05] MEDS: IPRATROPIUM NEB FS 0.5 MG/2.5 ML AMPUL.NEB NEB SCH ×4 (02:28→20:01)
[2018-05-05] MEDS: PANTOPRAZOLE 40 MG VIAL IV SCH ×2 (03:31→16:59)
[2018-05-05] MEDS: NEPRO 1,000 ML BOTTLE GT PRN (03:32)
[2018-05-05 04:00] VITALS: BP 151/49
[2018-05-05] MEDS: INSULIN REGULAR, HUMAN 100 UNIT/ML 3 ML VIAL SQ PRN ×4 (05:21→23:16)
[2018-05-05] MEDS: BLOOD SUGAR DIAGNOSTIC 1 EACH STRIP IN SCH ×4 (05:22→23:13)
[2018-05-05 06:25] LABS: BASOPHILS % (AUTO) 0.3 % (0.0-2.0); EOSINOPHILS % (AUTO) 0.8 % (0.0-6.0); HEMATOCRIT 27 % (33-45); HEMOGLOBIN 8.7 g/dL (11.5-14.8); LYMPHOCYTES % (AUTO) 14.2 % (20.0-44.0); MEAN CORPUSCULAR HEMOGLOBIN 29 PG (26.0-33.0); MEAN CORPUSCULAR HGB CONC 32 g/dl (31.0-36.0); MEAN CORPUSCULAR VOLUME 90 fL (82-100); MONOCYTES # (AUTO) 0.6 /CMM (0.1-1.30); MONOCYTES % (AUTO) 4.2 % (2.0-12.0); NEUTROPHILS # (AUTO) 11.3 /CMM (1.8-8.9); NEUTROPHILS % (AUTO) 80.5 % (43.0-81.0); PLATELET COUNT (AUTO) 350 /CMM (150-450); RDW COEFFICIENT OF VARIATION 17.9 (11.5-15.0); RED BLOOD CELL COUNT(AUTO) 3.01 MIL/uL (4.0-5.2); WHITE BLOOD COUNT (AUTO) 14.1 K/uL (4.3-11.0)
[2018-05-05 06:48] LABS: CALCIUM, SERUM 8.8 mg/dL (8.5-10.1); CARBON DIOXIDE 34 mmol/L (21-32); CHLORIDE 97 mmol/L (98-107); CREATININE 2.4 mg/dL (0.6-1.3); GLUCOSE 164 mg/dL (74-106); POTASSIUM 3.6 mmol/L (3.5-5.1); SODIUM SERUM 137 mmol/L (136-145); UREA NITROGEN, BLOOD 44 mg/dL (7-18)
--- NOTE | 2018-05-05 07:23 | NUR ---
TD RN NOTES NO ACUTE CHANGES NOTED DURING THE SHIFT. PROVIDED COMFORT AND SAFETY. DUE MEDS GIVEN. ENDORSED TO THE AM NURSE FOR ELISEO.
--- NOTE | 2018-05-05 07:30 | NUR ---
CHEVY RN INITIAL NOTES RECEIVED PATIENT IN BED, NO SIGNS OF DISTRESS, ON VENTILATOR SETTINGS ORDERED, O2 SATURATION 100%, AOX1, GTUBE SETTINGS ORDERED, NO RESIDUCAL NOTED, HD ANURIC, HD ACCES RIJ CATHETER, IV MIDLINE CLEAN AND PATENT, BED IN LOW AND LOCKED POSITION, CALL LIGHT WITHIN REACH, WILL CONTINUE TO MONITOR.
[2018-05-05 08:00] VITALS: BP 140/47
[2018-05-05] MEDS: ACIDOPHILUS/BULGARICUS 1 EACH TAB.CHEW GT SCH (08:19)
[2018-05-05] MEDS: VIT B CMPLX 3/FA/VIT C/BIOTIN 1 TAB TABLET PO SCH (08:19)
[2018-05-05] MEDS: ASCORBIC ACID 500 MG TABLET GT SCH (08:19)
[2018-05-05] MEDS: SEVELAMER CARBONATE 0.8 GM POWD.PACK GT SCH ×3 (08:19→17:00)
[2018-05-05] MEDS: CHLORHEXIDINE GLUCONATE 15 ML UDC MM SCH ×2 (08:19→21:18)
[2018-05-05] MEDS: HYDROCODONE/APAP 5/325MG 1 EACH TABLET GT SCH (08:19)
[2018-05-05] MEDS: LEVOTHYROXINE SODIUM 75 MCG TABLET GT SCH (08:19)
[2018-05-05] MEDS: MIDODRINE HCL (5MG) 5 MG TABLET GT SCH ×3 (08:20→16:59)
[2018-05-05] MEDS: Z GUARD REMEDY 2 OZ OINT TP SCH (08:20)
[2018-05-05] MEDS: CADEXOMER IODINE 40 GM TUBE TP SCH (08:26)
[2018-05-05] MEDS: INSULIN GLARGINE, 100 UNIT/ML CARTRIDGE SQ SCH ×2 (08:28→21:19)
[2018-05-05 12:00] VITALS: BP 142/45
[2018-05-05] MEDS: MEROPENEM 1 G in IV NS 0.9% 100 ML IV SCH (12:24)
[2018-05-05 16:00] VITALS: BP 147/44
--- NOTE | 2018-05-05 17:01 | NUR ---
CHEVY RN NOTES REVELA OK TO HOLD PER DR GIBBONS DUE TO NO NEW PHOSPHORUS LEVELS DRAWN, LAST ONES LOW LEVELS, NEW LEVELS TO BE DRAWN IN AM. DR VINCENT AWARE.
[2018-05-05] MEDS ORDERED: FEE PK DOSING 1 MIN EA MC ONE (18:00)
[2018-05-05] MEDS ORDERED: DOSING PER PHARMACY-AMIKACI IV XX PRN (18:00)
[2018-05-05] MEDS ORDERED: AMIKACIN 400 MG in IV D5W 100 ML IV ONE (18:30)
--- NOTE | 2018-05-05 18:37 | NUR ---
CHEVY RN END NOTES PATIENT RESTING IN BED, NO SIGNS OF DISTRESS, ALL NEEDS ATTENDED TO, WILL ENDORSE TO GARMENT TURNER FOR CONTINUITY OF CARE.
--- NOTE | 2018-05-05 19:29 | NUR ---
CHEVY RN OPENING NOTES RECEIVED REPORT FROM JAVON ASHFORD. PATIENT A/A/O X1, NON-VERBAL BUT OPENS/CLOSES EYES & RESPONSIVE TO VERBAL & TACTILE STIMULI. BREATHING EVEN & UNLABORED W/ TRACH INTACT & TOLERATING VENT SETTINGS AC 18, TV 400, FIO2 40%, PEEP 5. ON TELE W/ SINUS RHYTHM, HR 93. NO RESPIRATORY OR CARDIAC DISTRESS NOTED. RIGHT UPPER ARM MIDLINE INTACT & PATENT W/ DRESSING CDI, TKO. RIGHT IJ HD CATH INTACT W/ DRESSING CDI. G-TUBE FLUSHING WELL W/ GTF NEPRO RUNNING @ 40 ML/HR. NO RESIDUAL NOTED @ THIS TIME. HOB ELEVATED FOR ASPIRATION PRECAUTIONS & SAFETY MEASURES MAINTAINED. TURNED & REPOSITIONED FOR COMFORT. WILL CONTINUE TO MONITOR.
[2018-05-05] MEDS: CEFEPIME 1 GM in IV D5W 50 ML IV SCH (19:54)
[2018-05-05 20:00] VITALS: BP 162/43
[2018-05-05] MEDS: ATORVASTATIN 10 MG TABLET GT SCH (21:18)
[2018-05-05] MEDS: ACETAMINOPHEN 650 MG/20.3 ML UDC GT PRN (23:03)
[2018-05-06] VITALS: BP 145/40
[2018-05-06] MEDS: IPRATROPIUM NEB FS 0.5 MG/2.5 ML AMPUL.NEB NEB SCH ×4 (02:13→19:53)
[2018-05-06] MEDS: ALBUTEROL HALF STRENGTH 1.25 MG/3 ML VIAL.NEB NEB SCH ×4 (02:13→19:53)
[2018-05-06 04:00] VITALS: BP 155/38
[2018-05-06] MEDS: PANTOPRAZOLE 40 MG VIAL IV SCH ×2 (05:41→17:02)
[2018-05-06] MEDS: BLOOD SUGAR DIAGNOSTIC 1 EACH STRIP IN SCH ×3 (05:41→17:03)
[2018-05-06] MEDS: INSULIN REGULAR, HUMAN 100 UNIT/ML 3 ML VIAL SQ PRN (05:41)
--- NOTE | 2018-05-06 07:05 | NUR ---
RN NOTES RECEIVED PT ON BED, OBTUNDENT, VENT/ TRACH DEPENDENT , TRACH SUCTIONING DONE , TOLERATING CURRENT VENT SETTING WELL, ON TELE ST HR IN 100'S , NO RESPIRATORY OR CARDIAC DISTRESS NOTED. RIGHT UPPER ARM MIDLINE INTACT & PATENT W/ DRESSING CDI, TKO. RIGHT IJ HD CATH INTACT W/ DRESSING CDI. NEPRO AT 40CC/HR RUNNING VIA GT , TOLERATING WELL, NO RESIDUAL NOTED, HOB ELEVATED FOR ASPIRATION PRECAUTIONS & SAFETY MEASURES MAINTAINED. TURNED & REPOSITIONED FOR COMFORT.SR UPx3, CALL LIGHT WITHIN EASY REACH, BED LOCKED AND IN LOWEST POSITION , WILL CONTINUE TO MONITOR.
[2018-05-06 07:18] LABS: BASOPHILS % (AUTO) 0.3 % (0.0-2.0); CALCIUM, SERUM 8.8 mg/dL (8.5-10.1); CARBON DIOXIDE 32 mmol/L (21-32); CHLORIDE 95 mmol/L (98-107); CREATININE 3.3 mg/dL (0.6-1.3); EOSINOPHILS % (AUTO) 1.1 % (0.0-6.0); GLUCOSE 131 mg/dL (74-106); HEMATOCRIT 25 % (33-45); HEMOGLOBIN 8.2 g/dL (11.5-14.8); LYMPHOCYTES # (AUTO) 1.9 /CMM (0.8-4.8); LYMPHOCYTES % (AUTO) 12.2 % (20.0-44.0); MAGNESIUM 2.5 mg/dL (1.8-2.4); MEAN CORPUSCULAR HEMOGLOBIN 29 PG (26.0-33.0); MEAN CORPUSCULAR HGB CONC 33 g/dl (31.0-36.0); MEAN CORPUSCULAR VOLUME 90 fL (82-100); MONOCYTES # (AUTO) 0.6 /CMM (0.1-1.30); MONOCYTES % (AUTO) 3.8 % (2.0-12.0); NEUTROPHILS # (AUTO) 12.5 /CMM (1.8-8.9); NEUTROPHILS % (AUTO) 82.6 % (43.0-81.0); PHOSPHORUS 2.2 mg/dL (2.5-4.9); PLATELET COUNT (AUTO) 364 /CMM (150-450); POTASSIUM 3.8 mmol/L (3.5-5.1); RDW COEFFICIENT OF VARIATION 17.9 (11.5-15.0); RED BLOOD CELL COUNT(AUTO) 2.82 MIL/uL (4.0-5.2); SODIUM SERUM 136 mmol/L (136-145); UREA NITROGEN, BLOOD 63 mg/dL (7-18); WHITE BLOOD COUNT (AUTO) 15.2 K/uL (4.3-11.0)
[2018-05-06 08:00] VITALS: BP 146/46
[2018-05-06] MEDS: HYDROCODONE/APAP 5/325MG 1 EACH TABLET GT SCH (08:16)
[2018-05-06] MEDS: ACIDOPHILUS/BULGARICUS 1 EACH TAB.CHEW GT SCH (08:17)
[2018-05-06] MEDS: SEVELAMER CARBONATE 0.8 GM POWD.PACK GT SCH ×3 (08:17→17:01)
[2018-05-06] MEDS: VIT B CMPLX 3/FA/VIT C/BIOTIN 1 TAB TABLET PO SCH (08:17)
[2018-05-06] MEDS: LEVOTHYROXINE SODIUM 75 MCG TABLET GT SCH (08:17)
[2018-05-06] MEDS: ASCORBIC ACID 500 MG TABLET GT SCH (08:17)
[2018-05-06] MEDS: CHLORHEXIDINE GLUCONATE 15 ML UDC MM SCH ×2 (08:17→20:52)
[2018-05-06] MEDS: INSULIN GLARGINE, 100 UNIT/ML CARTRIDGE SQ SCH ×2 (08:19→21:00)
[2018-05-06] MEDS: MIDODRINE HCL (5MG) 5 MG TABLET GT SCH ×3 (08:27→17:00)
[2018-05-06] MEDS: CADEXOMER IODINE 40 GM TUBE TP SCH (08:28)
[2018-05-06] MEDS: Z GUARD REMEDY 2 OZ OINT TP SCH (08:28)
--- NOTE | 2018-05-06 09:57 | NUR ---
RT PATIENT [facility] WITH ORDERED SETTINGS SHERIF WELL. TRACH INTACT AND SECURED. VENT ALARMS ON + AUDIBLE. CUFF PRESSURE CHECKED [employer]. AIRWAY SUCTIONED WITH MOD/LARGE AMT OF PALE YELLOW SEMI-THICK SECRETIONS. AMBU BAG AT [facility]. WILL CONTINUE TO MONITOR
[2018-05-06] MEDS: NEPRO 1,000 ML BOTTLE GT PRN (11:12)
--- NOTE | 2018-05-06 11:42 | NUR ---
RN NOTES DR ALMEIDA NOTIFED REGARDING MICROBIOLOGY RESULTS PER HIS REQUEST .
[2018-05-06 12:00] VITALS: BP_SYST 142; BP_SYST 156; BP_DIAS 58; BP_DIAS 60
[2018-05-06 16:00] VITALS: BP 156/60
--- NOTE | 2018-05-06 18:36 | NUR ---
RN NOTES PT STABLE , RECEIVING HD AT THIS TIME, TOLERATING TF AT 40CC/HR WELL, R AXILLARY MIDLINE SITE CDI, SR UP x2, CALL LIGHT WITHIN EASY REACH, WILL ENDOSE TO MEDIA RELATIONS MANAGER NURSE FOR ELISEO .
[2018-05-06 20:00] VITALS: BP 114/33
[2018-05-06] MEDS: CEFEPIME 1 GM in IV D5W 50 ML IV SCH (20:26)
[2018-05-06] MEDS: ATORVASTATIN 10 MG TABLET GT SCH (21:02)
[2018-05-07] VITALS: BP 146/57
[2018-05-07] MEDS: BLOOD SUGAR DIAGNOSTIC 1 EACH STRIP IN SCH ×4 (00:17→17:49)
[2018-05-07] MEDS: INSULIN REGULAR, HUMAN 100 UNIT/ML 3 ML VIAL SQ PRN ×3 (00:18→12:16)
[2018-05-07] MEDS: ALBUTEROL HALF STRENGTH 1.25 MG/3 ML VIAL.NEB NEB SCH ×4 (00:49→20:20)
[2018-05-07] MEDS: IPRATROPIUM NEB FS 0.5 MG/2.5 ML AMPUL.NEB NEB SCH ×4 (00:49→20:20)
[2018-05-07 04:00] VITALS: BP 141/49
[2018-05-07] MEDS: PANTOPRAZOLE 40 MG VIAL IV SCH ×2 (04:37→09:30)
[2018-05-07 07:11] LABS: CARBON DIOXIDE 29 mmol/L (21-32); CHLORIDE 100 mmol/L (98-107); CREATININE 2.7 mg/dL (0.6-1.3); GLUCOSE 170 mg/dL (74-106); POTASSIUM 4.2 mmol/L (3.5-5.1); SODIUM SERUM 139 mmol/L (136-145); UREA NITROGEN, BLOOD 48 mg/dL (7-18)
--- NOTE | 2018-05-07 07:15 | NUR ---
RN CHEVY INITIAL NOTES RECEIVED REPORT AND PATIENT FROM PM NURSE. PATIENT IS A&O X1-2 OBTUNDED EYES OPEN, ON VENTILATOR SETTINGS ORDERED BY MD SATURING ABOVE 97%, NO SOB OR ACUTE DISTRESS AT THIS TIME, ON MIDDLE SCHOOL RESOURCE TEACHER WITH SINUS RHYTHM WITH HEART RATE 85, ON DIAPER, INCONTINENT, GTUBE INTACT AND FEEDING NEPHRO RUNNING @ 40 ML/HR NO RESIDUAL NOTED, RT AXILLARY MIDLINE INTACT AND PATENT NO INFILTRATION NOTED, RT IJ HD CATH INTACT AND PATENT, ALL SAFETY MEASURES INITIATED, SIDE RAILS X2, BED LOW AND LOCKED, WILL CONTINUE TO MONITOR.
[2018-05-07 08:00] VITALS: BP 110/29
[2018-05-07] MEDS: CHLORHEXIDINE GLUCONATE 15 ML UDC MM SCH ×2 (09:30→21:13)
[2018-05-07] MEDS: ACIDOPHILUS/BULGARICUS 1 EACH TAB.CHEW GT SCH (09:30)
[2018-05-07] MEDS: HYDROCODONE/APAP 5/325MG 1 EACH TABLET GT SCH (09:30)
[2018-05-07] MEDS: ASCORBIC ACID 500 MG TABLET GT SCH (09:30)
[2018-05-07] MEDS: SEVELAMER CARBONATE 0.8 GM POWD.PACK GT SCH ×3 (09:31→17:56)
[2018-05-07] MEDS: VIT B CMPLX 3/FA/VIT C/BIOTIN 1 TAB TABLET PO SCH (09:31)
[2018-05-07] MEDS: MIDODRINE HCL (5MG) 5 MG TABLET GT SCH ×3 (09:31→17:55)
[2018-05-07] MEDS: LEVOTHYROXINE SODIUM 75 MCG TABLET GT SCH (09:34)
[2018-05-07] MEDS: CADEXOMER IODINE 40 GM TUBE TP SCH (09:35)
[2018-05-07] MEDS: Z GUARD REMEDY 2 OZ OINT TP SCH (09:36)
[2018-05-07] MEDS: INSULIN GLARGINE, 100 UNIT/ML CARTRIDGE SQ SCH ×2 (09:54→21:12)
[2018-05-07 12:00] VITALS: BP 121/33
[2018-05-07] MEDS: ACETAMINOPHEN 650 MG/20.3 ML UDC GT PRN (12:07)
--- NOTE | 2018-05-07 12:38 | NUR ---
RN CHEVY NOTE S PTS TEMP 99.9, FAN INSIDE ROOM. ICE PACKS APPLIED AND TYLENOL GIVEN, WILL CONTINUE TO MONITOR PATIENT
--- NOTE | 2018-05-07 15:45 | NUR ---
RN CHEVY NOTES ENDORSED REPORT AND PT TO NURSE RIBEIRO FOR CONTINUITY OF CARE, PT STABLE AND NO ACUTE CHANGES NOTED, ALL DUE MEDS GIVEN, WOUND TX PROVIDED, TURN AND REPO Q2HRS, OFFLOAD EXTREMITIES.
--- NOTE | 2018-05-07 15:45 | NUR ---
RN NOTES RECEIVED REPORT FROM PREVIOUS NURSE A TRANSFER OF PATIENT CARE. PATIENT IS IN BED ,OBTUNDED, ON TRACH AND TOLERATING SETTINGS WELL. SR 76 ON SUPERVISOR ASSEMBLY STOCK, SPO2 100%. RIGHT IJ HD CATHETER IN PLACE. ALL SAFETY MEASURES ARE IMPLEMENTED. BED IN LOW, LOCKED POSITION, CALL LIGHT IN REACH. WILL CONT. TO MONITOR.
[2018-05-07 16:00] VITALS: BP 147/38
[2018-05-07] MEDS: NEPRO 1,000 ML BOTTLE GT PRN (18:49)
[2018-05-07 20:00] VITALS: BP 126/55
--- NOTE | 2018-05-07 20:00 | NUR ---
RN INITIAL NOTES Received endorsement from previous shift. Patient on contact isolation for bacteremia, awaiting final cultures. patient is alert, no distress. on vent support, tolerating current settings well, suctioned airway as needed, frothy, white sputum. GT placement verified, feeding as ordered, minimal to no gastric residual noted, tolerating well. R midaxillary midline, intact and patent, on TKO. patient turned and repositioned. on specialty mattress. will monitor closely.
[2018-05-07] MEDS: CEFEPIME 1 GM in IV D5W 50 ML IV SCH (21:12)
[2018-05-07] MEDS: ATORVASTATIN 10 MG TABLET GT SCH (21:13)
[2018-05-08] VITALS: BP 134/55
[2018-05-08] MEDS: BLOOD SUGAR DIAGNOSTIC 1 EACH STRIP IN SCH ×4 (00:04→18:26)
[2018-05-08] MEDS: INSULIN REGULAR, HUMAN 100 UNIT/ML 3 ML VIAL SQ PRN ×4 (00:05→13:34)
[2018-05-08] MEDS: ALBUTEROL HALF STRENGTH 1.25 MG/3 ML VIAL.NEB NEB SCH ×4 (01:43→19:50)
[2018-05-08] MEDS: IPRATROPIUM NEB FS 0.5 MG/2.5 ML AMPUL.NEB NEB SCH ×4 (01:43→19:50)
[2018-05-08 04:00] VITALS: BP 124/55
[2018-05-08] MEDS: PANTOPRAZOLE 40 MG VIAL IV SCH ×2 (05:22→16:40)
--- NOTE | 2018-05-08 06:21 | NUR ---
RN CLOSING NOTES with no acute change in condition observed overnight. no distress. tolerating GTF, no gastric residual noted. Airway kept patent, suctioned as needed, breathing tx at ordered. ATB given. wound treatment rendered. trach care done. patient turned and repositioned. needs anticipated and met. safety and comfort ensured. will endorse accordingly for continuity of care.
[2018-05-08 07:23] LABS: BASOPHILS % (AUTO) 0.2 % (0.0-2.0); HEMATOCRIT 25 % (33-45); HEMOGLOBIN 8.1 g/dL (11.5-14.8); LYMPHOCYTES % (AUTO) 13.4 % (20.0-44.0); MEAN CORPUSCULAR HEMOGLOBIN 29 PG (26.0-33.0); MEAN CORPUSCULAR HGB CONC 32 g/dl (31.0-36.0); MEAN CORPUSCULAR VOLUME 90 fL (82-100); MONOCYTES # (AUTO) 0.3 /CMM (0.1-1.30); MONOCYTES % (AUTO) 2.3 % (2.0-12.0); NEUTROPHILS # (AUTO) 12.3 /CMM (1.8-8.9); NEUTROPHILS % (AUTO) 82.1 % (43.0-81.0); PLATELET COUNT (AUTO) 348 /CMM (150-450); RDW COEFFICIENT OF VARIATION 18.2 (11.5-15.0); RED BLOOD CELL COUNT(AUTO) 2.81 MIL/uL (4.0-5.2)
[2018-05-08 07:30] LABS: CALCIUM, SERUM 8.8 mg/dL (8.5-10.1); CARBON DIOXIDE 28 mmol/L (21-32); CHLORIDE 98 mmol/L (98-107); CREATININE 3.3 mg/dL (0.6-1.3); GLUCOSE 191 mg/dL (74-106); POTASSIUM 3.9 mmol/L (3.5-5.1); SODIUM SERUM 136 mmol/L (136-145); UREA NITROGEN, BLOOD 66 mg/dL (7-18)
--- NOTE | 2018-05-08 07:32 | NUR ---
RT RECEIVED PT TRACH VENT DEPENDENT WITH NOTED SETTINGS. SOUND TRUCK OPERATOR DONE AND TRACH IS SECURE. VENT ALARMS CHECKED AND AUDIBLE. VENT PLUGGED IN RED OUTLET. AMBU BAG NOTED HOB. BILATERAL B/S RHONCHI. SX WITH MOD THK RODRIGUES SECRETIONS. TOLERATING SETTINGS WELL, BREATHING TX GIVEN. NO SOB OR RESP DISTRESS NOTED AT THIS TIME, WILL CONTINUE TO MONITOR T/O SHIFT.
[2018-05-08 08:00] VITALS: BP 111/56
--- NOTE | 2018-05-08 08:00 | NUR ---
RN CHEVY NOTES RECEIVED BEDSIDE REPORT FROM PM NURSE. PATIENT IS A&O X1-2 OBTUNDED EYES OPEN, ON VENTILATOR SUPPORT, SETTINGS ORDERED BY MD, SATURATING ABOVE 98%, NO SOB OR ACUTE DISTRESS NOTED AT THIS TIME, ON STAFFING EXECUTIVE WITH SINUS RHYTHM WITH HEART RATE 86, ON DIAPER, INCONTINENT, G-TUBE INTACT AND FEEDING NEPHRO RUNNING @ 40 ML/HR NO RESIDUAL NOTED, RT AXILLARY MIDLINE INTACT AND PATENT NO INFILTRATION NOTED, RT IJ HD CATH INTACT AND PATENT, ALL SAFETY MEASURES INITIATED, SIDE RAILS X2, BED LOW AND LOCKED, CALL LIGHT IN REACH. WILL CONTINUE TO MONITOR.
[2018-05-08] MEDS: LEVOTHYROXINE SODIUM 75 MCG TABLET GT SCH (08:26)
[2018-05-08] MEDS: VIT B CMPLX 3/FA/VIT C/BIOTIN 1 TAB TABLET PO SCH (08:26)
[2018-05-08] MEDS: ASCORBIC ACID 500 MG TABLET GT SCH (08:26)
[2018-05-08] MEDS: ACIDOPHILUS/BULGARICUS 1 EACH TAB.CHEW GT SCH (08:26)
[2018-05-08] MEDS: MIDODRINE HCL (5MG) 5 MG TABLET GT SCH ×3 (08:27→16:40)
[2018-05-08] MEDS: HYDROCODONE/APAP 5/325MG 1 EACH TABLET GT SCH (08:28)
[2018-05-08] MEDS: CHLORHEXIDINE GLUCONATE 15 ML UDC MM SCH ×2 (08:28→21:23)
[2018-05-08] MEDS: SEVELAMER CARBONATE 0.8 GM POWD.PACK GT SCH ×3 (08:29→18:27)
[2018-05-08] MEDS: Z GUARD REMEDY 2 OZ OINT TP SCH ×2 (08:30→18:34)
[2018-05-08] MEDS: CADEXOMER IODINE 40 GM TUBE TP SCH (08:30)
[2018-05-08] MEDS: INSULIN GLARGINE, 100 UNIT/ML CARTRIDGE SQ SCH ×2 (08:36→21:31)
--- NOTE | 2018-05-08 10:45 | NUR ---
CHEVY RN NOTES PATIENT'S HD IS DONE, 1L WAS OUT.
[2018-05-08 12:00] VITALS: BP 113/49
[2018-05-08] MEDS: DEXTROSE 50%-WATER 50 ML DISP.SYRIN IV PRN (13:00)
--- NOTE | 2018-05-08 13:14 | NUR ---
CHEVY ASHFORD NOTES PATIENT'S BLOOD SUGAR WAS 68, PATIENT WAS SYMPTOMATIC, SWEATING A LOT, SHAKE, NO FEVER AT THIS TIME T-98.7. I ADMINISTERED DEXTROSE INJ. 50% . Addendum: 05/08/18 at 1417 by QUINTIN OMALLEY RN PEGGY LYN NOTIFIED ABOUT PATIENT'S BLOOD SUGAR AND DEXTROSE ADMINISTRATION.
[2018-05-08 16:00] VITALS: BP 134/55
[2018-05-08] MEDS: NEPRO 1,000 ML BOTTLE GT PRN (18:28)
[2018-05-08] MEDS: ACETAMINOPHEN 650 MG/20.3 ML UDC GT PRN (19:01)
[2018-05-08 20:00] VITALS: BP 136/56
--- NOTE | 2018-05-08 20:00 | NUR ---
RN INITIAL NOTES Received pt resting in bed. Patient on contact isolation for bacteremia, awaiting final cultures. patient is alert, no distress. on vent support, tolerating current settings well. GT tube feeding. No gastric residual noted, tolerating well. R midaxillary midline, intact and patent, on TKO. patient turned and repositioned. will monitor closely.
[2018-05-08] MEDS: ATORVASTATIN 10 MG TABLET GT SCH (21:23)
[2018-05-08] MEDS: CEFEPIME 1 GM in IV D5W 50 ML IV SCH (21:23)
[2018-05-09] VITALS (7 sets, daily range): BP systolic 116–164; BP diastolic 33–83
[2018-05-09] MEDS: ALBUTEROL HALF STRENGTH 1.25 MG/3 ML VIAL.NEB NEB SCH ×4 (01:12→19:37)
[2018-05-09] MEDS: IPRATROPIUM NEB FS 0.5 MG/2.5 ML AMPUL.NEB NEB SCH ×4 (01:12→19:37)
[2018-05-09] MEDS: BLOOD SUGAR DIAGNOSTIC 1 EACH STRIP IN SCH ×4 (01:28→17:57)
[2018-05-09] MEDS: INSULIN REGULAR, HUMAN 100 UNIT/ML 3 ML VIAL SQ PRN ×2 (01:34→05:07)
[2018-05-09] MEDS: PANTOPRAZOLE 40 MG VIAL IV SCH ×2 (04:58→16:36)
--- NOTE | 2018-05-09 06:34 | NUR ---
Rn closing notes No acute change in condition observed overnight. no distress. Tolerating GTF, no gastric residual noted. Airway kept patent, suctioned as needed, breathing tx at ordered. Wound treatment rendered. Trach care done. Patient turned and repositioned. All needs anticipated and met. Safety and comfort ensured. Will endorse accordingly for continuity of care.
[2018-05-09 06:59] LABS: CARBON DIOXIDE 29 mmol/L (21-32); CHLORIDE 99 mmol/L (98-107); CREATININE 2.8 mg/dL (0.6-1.3); GLUCOSE 175 mg/dL (74-106); POTASSIUM 4.1 mmol/L (3.5-5.1); SODIUM SERUM 138 mmol/L (136-145); UREA NITROGEN, BLOOD 49 mg/dL (7-18)
--- NOTE | 2018-05-09 07:10 | NUR ---
TELE/RN INITIAL NOTES RECEIVED PT IN BED, ASLEEP BUT AROUSABLE TO NAME AND TOUCH. WITH INTACT TRACH, TOLERATING CURRENT VENT SETTINGS WELL, NO SOB NOTED. NO SIGNS OF PAIN NOTED, HOB ELEVATED. WITH ONGOING GTF NEPRO AT 40 ML/HR, TOLERATING WELL, NO RESIDUE NOTED. WITH INTACT AXILLARY MIDLINE AND RIGHT IJ HD CATH. SAFETY MEASURES AND ASPIRATION PRECAUTION IN PLACED. CALL LIGHT WITHIN REACH. WILL CONT TO MONITOR
[2018-05-09] MEDS: LEVOTHYROXINE SODIUM 75 MCG TABLET GT SCH (08:07)
[2018-05-09] MEDS: CHLORHEXIDINE GLUCONATE 15 ML UDC MM SCH ×2 (08:07→20:55)
[2018-05-09] MEDS: SEVELAMER CARBONATE 0.8 GM POWD.PACK GT SCH ×3 (08:07→17:57)
[2018-05-09] MEDS: INSULIN GLARGINE, 100 UNIT/ML CARTRIDGE SQ SCH ×2 (08:18→21:08)
[2018-05-09] MEDS: ASCORBIC ACID 500 MG TABLET GT SCH (08:19)
[2018-05-09] MEDS: ACIDOPHILUS/BULGARICUS 1 EACH TAB.CHEW GT SCH (08:19)
[2018-05-09] MEDS: VIT B CMPLX 3/FA/VIT C/BIOTIN 1 TAB TABLET PO SCH (08:19)
[2018-05-09] MEDS: HYDROCODONE/APAP 5/325MG 1 EACH TABLET GT SCH (08:20)
[2018-05-09] MEDS: CADEXOMER IODINE 40 GM TUBE TP SCH (08:32)
[2018-05-09] MEDS: MIDODRINE HCL (5MG) 5 MG TABLET GT SCH ×3 (08:33→16:37)
--- NOTE | 2018-05-09 13:45 | NUR ---
RN NOTES SPOKE WITH PHARMACIST AUGUSTINE, PER PHARMACIST OK TO GIVE AMIKACIN NOW
[2018-05-09] MEDS: AMIKACIN 400 MG in IV D5W 100 ML IV PRN (14:07)
--- NOTE | 2018-05-09 19:27 | NUR ---
RN NOTES PT REMAINED IN STABLE CONDITION. NO ACUTE DISTRESS NOTED THROUGHOUT SHIFT. ALL NEEDS ANTICIPATED. SAFETY MEASURES AND ASPIRATION PRECAUTION OBSERVED AT ALL TIMES. ENDORSED TO PM SHIFT NURSE FOR ELISEO
--- NOTE | 2018-05-09 20:00 | NUR ---
Rn initial notes Received pt resting in bed. Patient on contact isolation for bacteremia, awaiting final cultures. Patient is alert, no distress. On vent support, tolerating current settings well. GT tube feeding. No gastric residual noted, tolerating well. R midaxillary midline, intact and patent, on TKO. R IJ cath for HD. will turne and reposition. Will monitor closely.
[2018-05-09] MEDS: CEFEPIME 1 GM in IV D5W 50 ML IV SCH (20:55)
[2018-05-09] MEDS: ATORVASTATIN 10 MG TABLET GT SCH (21:02)
[2018-05-10] VITALS (7 sets, daily range): BP systolic 99–159; BP diastolic 35–78
[2018-05-10] MEDS: BLOOD SUGAR DIAGNOSTIC 1 EACH STRIP IN SCH ×4 (01:23→17:25)
[2018-05-10] MEDS: ALBUTEROL HALF STRENGTH 1.25 MG/3 ML VIAL.NEB NEB SCH ×4 (01:25→20:26)
[2018-05-10] MEDS: IPRATROPIUM NEB FS 0.5 MG/2.5 ML AMPUL.NEB NEB SCH ×4 (01:25→20:26)
[2018-05-10] MEDS: PANTOPRAZOLE 40 MG VIAL IV SCH ×2 (04:58→17:28)
[2018-05-10] MEDS: NEPRO 1,000 ML BOTTLE GT PRN (04:59)
--- NOTE | 2018-05-10 06:34 | NUR ---
RN CLOSING NOTES No acute change in condition observed overnight. No distress. Wound treatment rendered. Trach care done. Patient turned and repositioned. ALL needs anticipated and met. Safety and comfort ensured. Will endorse accordingly for continuity of care.
[2018-05-10 07:30] LABS: CALCIUM, SERUM 9.4 mg/dL (8.5-10.1); CARBON DIOXIDE 28 mmol/L (21-32); CHLORIDE 96 mmol/L (98-107); CREATININE 3.4 mg/dL (0.6-1.3); GLUCOSE 64 mg/dL (74-106); SODIUM SERUM 135 mmol/L (136-145); UREA NITROGEN, BLOOD 66 mg/dL (7-18)
[2018-05-10] MEDS: SEVELAMER CARBONATE 0.8 GM POWD.PACK GT SCH ×3 (07:46→17:26)
[2018-05-10] MEDS: LEVOTHYROXINE SODIUM 75 MCG TABLET GT SCH (07:46)
--- NOTE | 2018-05-10 08:27 | NUR ---
RN NOTES ENDORSED TO MAKEDA KHAN FOR ELISEO
[2018-05-10] MEDS: MIDODRINE HCL (5MG) 5 MG TABLET GT SCH ×3 (09:00→17:00)
[2018-05-10] MEDS: INSULIN GLARGINE, 100 UNIT/ML CARTRIDGE SQ SCH ×2 (09:00→22:57)
[2018-05-10] MEDS: ASCORBIC ACID 500 MG TABLET GT SCH (09:17)
[2018-05-10] MEDS: ACIDOPHILUS/BULGARICUS 1 EACH TAB.CHEW GT SCH (09:17)
[2018-05-10] MEDS: CHLORHEXIDINE GLUCONATE 15 ML UDC MM SCH ×2 (09:17→22:45)
[2018-05-10] MEDS: VIT B CMPLX 3/FA/VIT C/BIOTIN 1 TAB TABLET PO SCH (09:17)
[2018-05-10] MEDS: HYDROCODONE/APAP 5/325MG 1 EACH TABLET GT SCH (09:17)
--- NOTE | 2018-05-10 09:20 | NUR ---
AM RN NOTE AM RN NOTE Received patient lying in her bed, vent-trach dependent with settings noted. HD cath and midline intact. Midodrine med held due to PB138/[address] Capps made aware. Continue to GT feeding as ordered and tolerated well. Will continue to monitor.
--- NOTE | 2018-05-10 09:45 | NUR ---
AM RN NOTE BS checked prior giving routine Lantus, results 58mg/dl and re-checked again with 65mg/dl results. CN(Brittni) made aware, lantus held and dextrose to be given if BS less than 60mg/dl, OJ given via GT. Will cont to monitor per CN. Pt continue to GT feeding as ordered.
[2018-05-10] MEDS: Z GUARD REMEDY 2 OZ OINT TP SCH (10:11)
[2018-05-10] MEDS: CADEXOMER IODINE 40 GM TUBE TP SCH (10:11)
--- NOTE | 2018-05-10 12:00 | NUR ---
AM RN NOTE BS 116MG/DL.
[2018-05-10 12:57] LABS: BASOPHILS % (AUTO) 0.4 % (0.0-2.0); EOSINOPHILS % (AUTO) 1.3 % (0.0-6.0); HEMATOCRIT 24 % (33-45); HEMOGLOBIN 7.5 g/dL (11.5-14.8); LYMPHOCYTES # (AUTO) 2.7 /CMM (0.8-4.8); LYMPHOCYTES % (AUTO) 19.4 % (20.0-44.0); MEAN CORPUSCULAR HEMOGLOBIN 28 PG (26.0-33.0); MEAN CORPUSCULAR HGB CONC 31 g/dl (31.0-36.0); MEAN CORPUSCULAR VOLUME 90 fL (82-100); MONOCYTES # (AUTO) 0.4 /CMM (0.1-1.30); NEUTROPHILS # (AUTO) 10.4 /CMM (1.8-8.9); NEUTROPHILS % (AUTO) 75.9 % (43.0-81.0); PLATELET COUNT (AUTO) 319 /CMM (150-450); RDW COEFFICIENT OF VARIATION 17.7 (11.5-15.0); RED BLOOD CELL COUNT(AUTO) 2.65 MIL/uL (4.0-5.2); WHITE BLOOD COUNT (AUTO) 13.7 K/uL (4.3-11.0)
[2018-05-10] MEDS ORDERED: EPOETIN ALFA (10,000 UNIT) 10,000 UNIT/ML VIAL IV ONE (13:00)
--- NOTE | 2018-05-10 13:00 | NUR ---
AM RN NOTE Received call from Alfie (Lab) with Amikacin results 18.6, AVELINO ([facility]) made aware. Per CN just call pharmacy. Wily pharmacist made aware and stated to hold Amikacin post HD. Pt having dialysis at this time.
--- NOTE | 2018-05-10 14:12 | NUR ---
AM RN NOTE Michelle Zhao held pt having dialysis.
--- NOTE | 2018-05-10 17:00 | NUR ---
RODNEY RN NOTE Dialysis output 1 L.
--- NOTE | 2018-05-10 18:22 | NUR ---
AM RN NOTE Pt lying in her bed, midline came out when staff with changing her. Notified CN ([facility]) and Freight Checker ([place]). Per order takers supervisor, IV staff will come tonight for re-insertion. Endorsed in report. Will continue to monitor and endorse pt's care to next shift.
--- NOTE | 2018-05-10 20:00 | NUR ---
Rn Initial Notes Received pt resting in bed. Patient on contact isolation for bacteremia. Patient is alert, no distress. On vent support, tolerating current settings well. GT tube feeding. No gastric residual noted, tolerating well. L Basilic vein midline, intact and patent, on TKO. R IJ cath for HD. will turn and repositio Q2. Will monitor closely.
[2018-05-10] MEDS: ATORVASTATIN 10 MG TABLET GT SCH (22:45)
[2018-05-10] MEDS: CEFEPIME 1 GM in IV D5W 50 ML IV SCH (22:45)
[2018-05-11] VITALS: BP_SYST 134; BP_SYST 143; BP_DIAS 69; BP_DIAS 97
[2018-05-11] MEDS: BLOOD SUGAR DIAGNOSTIC 1 EACH STRIP IN SCH ×5 (00:24→23:43)
[2018-05-11] MEDS: ALBUTEROL HALF STRENGTH 1.25 MG/3 ML VIAL.NEB NEB SCH ×4 (02:04→19:14)
[2018-05-11] MEDS: IPRATROPIUM NEB FS 0.5 MG/2.5 ML AMPUL.NEB NEB SCH ×4 (02:04→19:14)
[2018-05-11 04:00] VITALS: BP 143/59
[2018-05-11] MEDS: PANTOPRAZOLE 40 MG VIAL IV SCH ×2 (04:31→17:27)
[2018-05-11] MEDS: DEXTROSE 50%-WATER 50 ML DISP.SYRIN IV PRN (05:24)
[2018-05-11] MEDS: NEPRO 1,000 ML BOTTLE GT PRN (05:38)
--- NOTE | 2018-05-11 06:30 | NUR ---
RN CLOSING NOTES No acute change in condition observed overnight. No distress. Wound treatment rendered. Trach care done. Patient turned and repositioned Q2. ALL needs anticipated and met. Safety and comfort ensured. Will endorse accordingly for continuity of care.
[2018-05-11 07:09] LABS: CALCIUM, SERUM 8.7 mg/dL (8.5-10.1); CARBON DIOXIDE 27 mmol/L (21-32); CHLORIDE 95 mmol/L (98-107); CREATININE 2.8 mg/dL (0.6-1.3); GLUCOSE 120 mg/dL (74-106); POTASSIUM 3.5 mmol/L (3.5-5.1); SODIUM SERUM 131 mmol/L (136-145); UREA NITROGEN, BLOOD 50 mg/dL (7-18)
--- NOTE | 2018-05-11 07:15 | NUR ---
RELIEF WORKER INITIAL NOTES RECEIVED REPORT AND PATEINT FROM PM NURSE, PT RESTING IN BED WITH NO ACUTE CHANGES NOTED, NO SOB OR DISTRESS, ON MECHANICAL VENT SETTINGS ORDERED BY MD SAT ABOVE 97%, ON IMMIGRATION SPECIALIST HEART RATE 98, SOMETIMES TACHYCARDIC 109 MAX HEART RATE, DIAPER ON, HEMODIALYSIS PATIENT WITH RIGHT IJ QUINTONC CATH INTACT, LEFT MIDLINE PLACED INTACT AND PATENT SALINE LOCKED, GASTRIC TUBE FEEDING NEPHRO AT 40 ML/HR NO RESIDUAL NOTED, KCI MATTRESS ON, ALL NEEDS MET, ALL SAFETY MEASURES INITIATED, SIDE RAILS X2, BED LOW AND LOCKED, CALL LIGHT WITHIN REACH, TURN AND REPO Q2HRS, WILL CONTINUE TO MONITOR.
[2018-05-11 08:00] VITALS: BP 169/44
[2018-05-11] MEDS: MIDODRINE HCL (5MG) 5 MG TABLET GT SCH ×3 (08:18→17:00)
[2018-05-11] MEDS: SEVELAMER CARBONATE 0.8 GM POWD.PACK GT SCH ×3 (08:19→17:26)
[2018-05-11] MEDS: LEVOTHYROXINE SODIUM 75 MCG TABLET GT SCH (08:19)
[2018-05-11] MEDS: HYDROCODONE/APAP 5/325MG 1 EACH TABLET GT SCH (08:19)
[2018-05-11] MEDS: CHLORHEXIDINE GLUCONATE 15 ML UDC MM SCH ×2 (08:19→21:03)
[2018-05-11] MEDS: VIT B CMPLX 3/FA/VIT C/BIOTIN 1 TAB TABLET PO SCH (08:19)
[2018-05-11] MEDS: ASCORBIC ACID 500 MG TABLET GT SCH (08:19)
[2018-05-11] MEDS: ACIDOPHILUS/BULGARICUS 1 EACH TAB.CHEW GT SCH (08:19)
[2018-05-11] MEDS: CADEXOMER IODINE 40 GM TUBE TP SCH (08:21)
[2018-05-11] MEDS: Z GUARD REMEDY 2 OZ OINT TP SCH (08:21)
[2018-05-11] MEDS: INSULIN GLARGINE, 100 UNIT/ML CARTRIDGE SQ SCH ×2 (08:24→21:23)
--- NOTE | 2018-05-11 08:26 | NUR ---
MANAGER ED NOTES PTS BLOOD PRESSURE 169/44 WILL NOT BE GIVING MIDODRINE, WILL CONTINUE TO MONITOR.
--- NOTE | 2018-05-11 08:27 | NUR ---
CURING PRESS OPERATOR NOTES PTS BLOOD GLUCOSE 69 MG/DL, WILL NOT BE ADMINISTERING INSULIN LANTUS LONG ACTING, WILL CONTINUE TO MONITOR BLOOD SUGAR LEVELS.
[2018-05-11 12:00] VITALS: BP 152/52
[2018-05-11 16:00] VITALS: BP_SYST 128; BP_SYST 152; BP_DIAS 43; BP_DIAS 52
[2018-05-11] MEDS: INSULIN REGULAR, HUMAN 100 UNIT/ML 3 ML VIAL SQ PRN ×2 (17:31→23:45)
--- NOTE | 2018-05-11 17:35 | NUR ---
AIR QUALITY INSTRUMENT SPECIALIST NOTES HELD MIDRODRINE PT WAS HIGH 140/55, WILL CONTINUE TO MONITOR.
--- NOTE | 2018-05-11 18:24 | NUR ---
PHOTOGRAPHIC LITHOGRAPHER ENDING NOTES PATEINT STABLE WITH NO ACUTE DISTRESS, ALL DUE MEDS GIVEN, ALL NEEDS MET, BED BATH AND WOUND TX PROVIDED, HD TOMORROW, RT MIDLINE INTACT AND PATENT ,PT STABLE TO ENDORSE TO PM NURSE.
[2018-05-11 20:00] VITALS: BP_SYST 121; BP_SYST 127; BP_DIAS 59
--- NOTE | 2018-05-11 20:00 | NUR ---
RN Initial Notes Received pt resting in bed. Patient on contact isolation for bacteremia. Patient is alert, no distress. On vent support, tolerating current settings well. GT tube feeding. No gastric residual noted, tolerating well. L basilic vein midline, intact and patent, on TKO. R IJ cath for HD. Will turn and reposition Q2. Will monitor closely.
[2018-05-11] MEDS: ATORVASTATIN 10 MG TABLET GT SCH (21:03)
[2018-05-11] MEDS: CEFEPIME 1 GM in IV D5W 50 ML IV SCH (21:05)
[2018-05-12] VITALS (7 sets, daily range): BP systolic 115–131; BP diastolic 29–92
[2018-05-12] MEDS: ACETAMINOPHEN 650 MG/20.3 ML UDC GT PRN (01:02)
[2018-05-12] MEDS: ALBUTEROL HALF STRENGTH 1.25 MG/3 ML VIAL.NEB NEB SCH ×4 (01:18→19:39)
[2018-05-12] MEDS: IPRATROPIUM NEB FS 0.5 MG/2.5 ML AMPUL.NEB NEB SCH ×4 (01:18→19:39)
[2018-05-12] MEDS: PANTOPRAZOLE 40 MG VIAL IV SCH ×2 (05:51→15:42)
[2018-05-12] MEDS: BLOOD SUGAR DIAGNOSTIC 1 EACH STRIP IN SCH ×4 (05:53→23:29)
[2018-05-12] MEDS: INSULIN REGULAR, HUMAN 100 UNIT/ML 3 ML VIAL SQ PRN ×3 (06:05→23:29)
[2018-05-12] MEDS: NEPRO 1,000 ML BOTTLE GT PRN (06:09)
--- NOTE | 2018-05-12 07:01 | NUR ---
RN CLOSING NOTES No acute change in condition observed overnight. No distress. Wound treatment rendered. Trach care done. Patient turned and repositioned Q2. ALL needs anticipated and met. Safety and comfort ensured. Pics taken. Will endorse accordingly for continuity of care.
--- NOTE | 2018-05-12 07:45 | NUR ---
PAPER BAG INSPECTOR NOTE: RECEIVED PATIENT IN BED, AWAKE, TRYING TO MOUTH WORDS. ON VENT-TRACH DEPENDENT SATURATING 100%. NO FACIAL GRIMACING NOTED. (L) UA MIDLINE NOTED INTACT AND PATENT. HOB ELEVATED. ON GT FEEDING OF NEPHRO @40 ML/HR NO RESIDUAL NOTED. (R) IJ YULY CATH HD CATHETER WAS IN PLACED. ON CONTACT ISOLATION FOR ACINETOBACTER BACTEREMIA. ON HD FOR TODAY. BED ALARMED AND LOCKED AT ALL TIMES. CALL LIGHT WITHIN REACH. NEEDS ANTICIPATED.
[2018-05-12] MEDS: LEVOTHYROXINE SODIUM 75 MCG TABLET GT SCH ×2 (09:12→09:27)
[2018-05-12] MEDS: SEVELAMER CARBONATE 0.8 GM POWD.PACK GT SCH ×3 (09:13→18:50)
[2018-05-12] MEDS: ACIDOPHILUS/BULGARICUS 1 EACH TAB.CHEW GT SCH (09:27)
[2018-05-12] MEDS: CHLORHEXIDINE GLUCONATE 15 ML UDC MM SCH ×2 (09:27→21:05)
[2018-05-12] MEDS: VIT B CMPLX 3/FA/VIT C/BIOTIN 1 TAB TABLET PO SCH (09:27)
[2018-05-12] MEDS: Z GUARD REMEDY 2 OZ OINT TP SCH (09:39)
[2018-05-12] MEDS: CADEXOMER IODINE 40 GM TUBE TP SCH (09:41)
[2018-05-12] MEDS: HYDROCODONE/APAP 5/325MG 1 EACH TABLET GT SCH (09:44)
[2018-05-12] MEDS: MIDODRINE HCL (5MG) 5 MG TABLET GT SCH ×3 (09:45→18:49)
[2018-05-12] MEDS: ASCORBIC ACID 500 MG TABLET GT SCH (09:46)
[2018-05-12] MEDS: INSULIN GLARGINE, 100 UNIT/ML CARTRIDGE SQ SCH ×2 (09:55→21:00)
--- NOTE | 2018-05-12 14:26 | NUR ---
COMPLAINT SUPERVISOR NOTE: SPOKE WITH MARIBELL FROM THE PHARMACY AND INFORMED HER THAT THE PATIENT HAD HEMODIALYSIS TODAY AND THE AMIKACIN TROUGH LEVEL WAS 18.6 PER MARIBELL, HOLD THE DOSE FOR TODAY. DR. VINCENT MADE AWARE.
--- NOTE | 2018-05-12 19:45 | NUR ---
REGIONAL FLATBED TRUCK DRIVER NOTE: PATIENT ON STABLE CONDITION. ON GT FEEDING OF NEPHRO @50ML/HR AND TOLERATING WELL. HOB ELEVATED. CALL LIGHT WITHIN REACH. REPORT GIVEN TO PM SHIFT NURSE FOR CONTINUITY OF CARE.
[2018-05-12] MEDS: CEFEPIME 1 GM in IV D5W 50 ML IV SCH (20:10)
[2018-05-12] MEDS: ATORVASTATIN 10 MG TABLET GT SCH (21:05)
[2018-05-13] VITALS (11 sets, daily range): BP systolic 102–162; BP diastolic 31–87
[2018-05-13] MEDS: IPRATROPIUM NEB FS 0.5 MG/2.5 ML AMPUL.NEB NEB SCH ×4 (01:34→19:40)
[2018-05-13] MEDS: ALBUTEROL HALF STRENGTH 1.25 MG/3 ML VIAL.NEB NEB SCH ×4 (01:34→19:40)
[2018-05-13] MEDS: PANTOPRAZOLE 40 MG VIAL IV SCH ×2 (03:48→16:59)
[2018-05-13] MEDS: NEPRO 1,000 ML BOTTLE GT PRN (04:18)
[2018-05-13] MEDS: BLOOD SUGAR DIAGNOSTIC 1 EACH STRIP IN SCH ×3 (05:12→17:18)
[2018-05-13] MEDS: INSULIN REGULAR, HUMAN 100 UNIT/ML 3 ML VIAL SQ PRN ×3 (05:13→17:46)
--- NOTE | 2018-05-13 06:38 | NUR ---
RN NOTES RECEIVED ORDER FROM DR. LOFTON TO PLACE PATIENT ON NPO NOW FOR PERMACATH INSERTION FOR HD. ORDERS NOTED AND CARRIED OUT. TURNED OFF PATIENT'S GTUBE FEEDING. SPOKE WITH PATIENT'S SISTER. BERNARD ECHAVARRIA FOR CONSENT TO DO PERMACATH INSERTION FOR HD. CONSENT GIVEN BY JERICHO WAGNER WITNESSED BY 2 RN'S
[2018-05-13 07:15] LABS: BASOPHILS % (AUTO) 0.2 % (0.0-2.0); EOSINOPHILS % (AUTO) 0.7 % (0.0-6.0); HEMATOCRIT 21 % (33-45); LYMPHOCYTES # (AUTO) 2.3 /CMM (0.8-4.8); LYMPHOCYTES % (AUTO) 14.8 % (20.0-44.0); MEAN CORPUSCULAR HEMOGLOBIN 29 PG (26.0-33.0); MEAN CORPUSCULAR HGB CONC 32 g/dl (31.0-36.0); MEAN CORPUSCULAR VOLUME 90 fL (82-100); MONOCYTES # (AUTO) 0.8 /CMM (0.1-1.30); NEUTROPHILS # (AUTO) 12.5 /CMM (1.8-8.9); NEUTROPHILS % (AUTO) 79.3 % (43.0-81.0); PLATELET COUNT (AUTO) 297 /CMM (150-450); RED BLOOD CELL COUNT(AUTO) 2.29 MIL/uL (4.0-5.2); WHITE BLOOD COUNT (AUTO) 15.8 K/uL (4.3-11.0)
[2018-05-13 07:18] LABS: HEMOGLOBIN 6.6 g/dL (11.5-14.8)
--- NOTE | 2018-05-13 07:27 | NUR ---
CRITICAL H AND H 6.6 AND 21, REPORTED TO DR VINCENT. WAITING FOR CALL BACK. WILL CONT TO MONITOR.
[2018-05-13] MEDS: SEVELAMER CARBONATE 0.8 GM POWD.PACK GT SCH ×3 (07:58→17:18)
[2018-05-13] MEDS: ACIDOPHILUS/BULGARICUS 1 EACH TAB.CHEW GT SCH (08:27)
[2018-05-13] MEDS: HYDROCODONE/APAP 5/325MG 1 EACH TABLET GT SCH (08:28)
[2018-05-13] MEDS: ASCORBIC ACID 500 MG TABLET GT SCH (08:28)
[2018-05-13] MEDS: MIDODRINE HCL (5MG) 5 MG TABLET GT SCH ×3 (08:28→17:00)
[2018-05-13] MEDS: VIT B CMPLX 3/FA/VIT C/BIOTIN 1 TAB TABLET PO SCH (08:29)
[2018-05-13] MEDS: CHLORHEXIDINE GLUCONATE 15 ML UDC MM SCH ×2 (08:29→21:09)
[2018-05-13] MEDS ORDERED: SEVOFLURANE 250 ML BOTTLE IH ONE (08:56)
[2018-05-13] MEDS: INSULIN GLARGINE, 100 UNIT/ML CARTRIDGE SQ SCH ×2 (09:00→21:10)
--- NOTE | 2018-05-13 09:00 | NUR ---
MIDLINE CATH ACCESS ON CLAUS REMOVED DUE TO CATHETER ASSISTED OUT. NOTIFIED CHARGE NURSE COLT AND MULTIMEDIA AUTHOR ANSHUL WELL DR MELONY SKELTON. AVELINO GREGORY ABLE TO RE INSERT GAUGE 20 ON LFA. WILL CONT TO MONITOR.
[2018-05-13 09:52] LABS: BAND % (MANUAL) 1 % (0.0-5.0); EOSINOPHILS % (MANUAL) 1 % (0-4); LYMPHOCYTES % (MANUAL) 26 % (16-48); MONOCYTES % (MANUAL) 4 % (0-11.0); NEUTROPHILS % (MANUAL) 68 (42-76)
[2018-05-13] MEDS ORDERED: HEPARIN SODIUM, PORCINE 1,000 UNIT/ML VIAL ONE (11:50)
[2018-05-13] MEDS ORDERED: LIDOCAINE HCL/PF 1% 30 ML SDV ONE (11:50)
--- NOTE | 2018-05-13 12:50 | NUR ---
BLOOD TRANSFUSION STARTED ON LFA.
[2018-05-13] MEDS: Z GUARD REMEDY 2 OZ OINT TP SCH (12:55)
[2018-05-13] MEDS: CADEXOMER IODINE 40 GM TUBE TP SCH (12:55)
[2018-05-13] MEDS ORDERED: FENTANYL PF 100MCG/2ML AMPUL ONE (13:27)
--- NOTE | 2018-05-13 13:35 | NUR ---
TAKEN TO OR WITH THE BLOOD TRANSFUSION INFUSING.
--- NOTE | 2018-05-13 13:39 | NUR ---
RT NOTE PT TRANSFERRED TO OR WITH NO COMPLICATIONS. NO RESP DISTRESS OR SOB NOTED.
--- NOTE | 2018-05-13 14:00 | NUR ---
Pt in OR.
--- NOTE | 2018-05-13 14:30 | NUR ---
RT NOTE LATE ENTRY. @1425 PT TRANSFERRED FROM OR TO [place] WITH NO COMPLICATIONS. NO RESP DISTRESS OR SOB NOTED.
--- NOTE | 2018-05-13 14:31 | NUR ---
PT JEAN MARIE'D ON MECHANICAL VENT WITH CHARTED SETTINGS. TXS GIVEN AND NO ADVERSE REACTION NOTES. SX DONE T/O SHIFT. PT JEAN MARIE PATENT AND SECURE. AMBU BAG AT BEDSIDE. VENT PLUGGED INTO RED OUTLET. ALARMS ARE ON AND AUDIBLE. WILL CONTINUE TO MONITOR. Addendum: 05/13/18 at 1434 by NALLELY LOPEZ RT Amended: Links added.
--- NOTE | 2018-05-13 15:19 | NUR ---
Received from OR post op. Right chestwall Permacath in place. Scant bleeding noted, 4x4 gauze placed on catheters. Vital signs taken, repositioned and sponge bath done. PRBC 1 unit completed. Will cont to monitor.
--- NOTE | 2018-05-13 18:16 | NUR ---
GT RESTARTED AND TOLERATING. TURNED AND REPOSITIONED FOR COMFORT. BLOOD SUGARS MONITORED. BED LOW AND LOCKED. CALL LIGHT WITHIN REACHED. WILL CONT TO MONITOR.
--- NOTE | 2018-05-13 19:30 | NUR ---
RN OPENING NOTES: RECEIVED PATIENT ON BED WITH SPONTANEOUS EYE OPENING; AROUSABLE VIA VERBAL STIMULI. NON VERBAL, [facility], SETTINGS ORDERED. NOT IN APPARENT DISTRESS. SR ON THE MONITOR. IV ACCESS NOTED INTACT ON LEFT LATERAL UPPER ARM. PERMACATH INTACT, ON R CHEST WALL. MONITORED FOR BLEEDING. GT INTACT, FEEDING ONGOING ORDERED. TO MONITOR FOR RESIDUALS. ASPIRATION PRECAUTIONS ENSURED AT ALL TIMES. MONITORED FOR INCONTINENCE. SAFETY MEASURES ENSURED CONTINUOUSLY MONITORED.
[2018-05-13] MEDS: CEFEPIME 1 GM in IV D5W 50 ML IV SCH (20:59)
[2018-05-13] MEDS: ATORVASTATIN 10 MG TABLET GT SCH (21:10)
[2018-05-14] VITALS (7 sets, daily range): BP systolic 107–154; BP diastolic 27–58
[2018-05-14] MEDS: INSULIN REGULAR, HUMAN 100 UNIT/ML 3 ML VIAL SQ PRN ×4 (00:22→23:37)
[2018-05-14] MEDS: BLOOD SUGAR DIAGNOSTIC 1 EACH STRIP IN SCH ×5 (00:27→23:34)
[2018-05-14] MEDS: ALBUTEROL HALF STRENGTH 1.25 MG/3 ML VIAL.NEB NEB SCH ×4 (01:18→19:25)
[2018-05-14] MEDS: IPRATROPIUM NEB FS 0.5 MG/2.5 ML AMPUL.NEB NEB SCH ×4 (01:18→19:25)
--- NOTE | 2018-05-14 03:46 | NUR ---
PATIENT RECEIVED ON MECHANICAL VENT SUPPORT WITH SETTINGS OF AC 18, 400 VT, 40%, +5. SUCTIONED WITH LAVAGE FOR MODERATE, THICK, YELLOW-CREAM SECRETIONS. GIVEN IN-LINE TREATMENTS WITH NO ADVERSE REACTIONS. AMBU BAG AT BEDSIDE. VENT AND PULSE OXIMETER ALARMS AUDIBLE AND VISIBLE. Addendum: 05/14/18 at 0349 by ADEN VALLADARES RT Amended: Links added.
[2018-05-14] MEDS: PANTOPRAZOLE 40 MG VIAL IV SCH ×2 (05:04→17:18)
[2018-05-14 07:06] LABS: BASOPHILS % (AUTO) 0.1 % (0.0-2.0); HEMATOCRIT 26 % (33-45); HEMOGLOBIN 8.3 g/dL (11.5-14.8); LYMPHOCYTES # (AUTO) 1.8 /CMM (0.8-4.8); LYMPHOCYTES % (AUTO) 14.4 % (20.0-44.0); MEAN CORPUSCULAR HEMOGLOBIN 29 PG (26.0-33.0); MEAN CORPUSCULAR HGB CONC 33 g/dl (31.0-36.0); MEAN CORPUSCULAR VOLUME 90 fL (82-100); MONOCYTES # (AUTO) 0.6 /CMM (0.1-1.30); NEUTROPHILS # (AUTO) 10.1 /CMM (1.8-8.9); NEUTROPHILS % (AUTO) 79.5 % (43.0-81.0); PLATELET COUNT (AUTO) 283 /CMM (150-450); RDW COEFFICIENT OF VARIATION 16.6 (11.5-15.0); RED BLOOD CELL COUNT(AUTO) 2.83 MIL/uL (4.0-5.2); WHITE BLOOD COUNT (AUTO) 12.7 K/uL (4.3-11.0)
--- NOTE | 2018-05-14 07:22 | NUR ---
RN CLOSING NOTES: REMAINED IN BED NO ACUTE CHANGES OVERNIGHT. REMAINED TO TRACH TO [facility] VENT TOLERATED WELL. NOT IN APPARENT DISTRESS. SKIN CARE RENDERED. TF ORDERED TOLERATED WELL. SKIN CARE RENDERED. CHANGED ALL WOUND DRESSINGS ORDERED. SAFETY MEASURES ENSURED. NOTED WITH BLACK BROWN-MAROON TINGED FORMED STOOL. MONITORED FOR OTHER POSSIBLE BLEEDING. CONTINUOUSLY MONITORED. ENDORSED TO AM SHIFT MAKEDA GU.
[2018-05-14] MEDS: MIDODRINE HCL (5MG) 5 MG TABLET GT SCH ×4 (09:00→18:22)
[2018-05-14] MEDS: ASCORBIC ACID 500 MG TABLET GT SCH (09:09)
[2018-05-14] MEDS: HYDROCODONE/APAP 5/325MG 1 EACH TABLET GT SCH (09:09)
[2018-05-14] MEDS: CHLORHEXIDINE GLUCONATE 15 ML UDC MM SCH ×2 (09:09→21:06)
[2018-05-14] MEDS: ACIDOPHILUS/BULGARICUS 1 EACH TAB.CHEW GT SCH (09:09)
[2018-05-14] MEDS: VIT B CMPLX 3/FA/VIT C/BIOTIN 1 TAB TABLET PO SCH (09:09)
[2018-05-14] MEDS: Z GUARD REMEDY 2 OZ OINT TP SCH (09:10)
[2018-05-14] MEDS: CADEXOMER IODINE 40 GM TUBE TP SCH (09:10)
[2018-05-14] MEDS: LEVOTHYROXINE SODIUM 75 MCG TABLET GT SCH (09:13)
[2018-05-14] MEDS: SEVELAMER CARBONATE 0.8 GM POWD.PACK GT SCH ×3 (09:13→17:19)
[2018-05-14] MEDS: INSULIN GLARGINE, 100 UNIT/ML CARTRIDGE SQ SCH ×2 (09:16→23:34)
--- NOTE | 2018-05-14 18:40 | NUR ---
PARAMEDICS REFUSED TO TAKE PT R/T BP 107/40,RECHECKED BP LEGS /ARMS UNABLE TO DO DO MANUAL R/T COTRACTURES.DBP RANGE 40'S,DR. NOE GIBBONS NOTIFIED AND ORDERED NS BOLUS,CM MADE AWARE. WILL RESCHEDULE PICKUP 9PM PENDING BP.
[2018-05-14] MEDS ORDERED: IV NS 0.9% 250 ML IV ONE (19:00)
--- NOTE | 2018-05-14 19:25 | NUR ---
RECEIVED TRACHED PT ON VENT PORTEX 8 ON AC MODE. TOLERATING VENT SETTINGS. BREATHING TX GIVEN PER MD'S ORDER. NO ADVERSE REACTION NOTED. SX'D MODERATE AMOUNT OF YELLOW/RODRIGUES SECRETIONS. VENT ALARMS SET AND AUDIBLE. TRACH IS SECURED, CUFF CORRECTIONAL SUPERVISOR LIEUTENANT. VENT PLUGGED INTO RED OUTLET. AMBU BAG AT BEDSIDE. WILL CONTINUE TO MONITOR.
[2018-05-14] MEDS: CEFEPIME 1 GM in IV D5W 50 ML IV SCH (20:54)
--- NOTE | 2018-05-14 21:00 | NUR ---
TELE-1/TOLL COLLECTOR SUPER[facility] [facility] UNABLE TO TAKE PT FOR TRANSFER TO SNF. DBP TO LOW. 114/31. DR. VINCENT NOTIFIED. WILL CONTINUE TO MONITOR.
[2018-05-14] MEDS: ATORVASTATIN 10 MG TABLET GT SCH (21:06)
[2018-05-15] VITALS: BP 141/29
[2018-05-15] MEDS: IPRATROPIUM NEB FS 0.5 MG/2.5 ML AMPUL.NEB NEB SCH ×3 (01:32→14:07)
[2018-05-15] MEDS: ALBUTEROL HALF STRENGTH 1.25 MG/3 ML VIAL.NEB NEB SCH ×3 (01:32→14:07)
[2018-05-15 04:00] VITALS: BP 112/36
[2018-05-15] MEDS: PANTOPRAZOLE 40 MG VIAL IV SCH (05:11)
[2018-05-15] MEDS: BLOOD SUGAR DIAGNOSTIC 1 EACH STRIP IN SCH ×2 (05:15→12:57)
[2018-05-15] MEDS: INSULIN REGULAR, HUMAN 100 UNIT/ML 3 ML VIAL SQ PRN ×2 (05:23→13:06)
[2018-05-15] MEDS: LEVOTHYROXINE SODIUM 75 MCG TABLET GT SCH (07:55)
[2018-05-15] MEDS: SEVELAMER CARBONATE 0.8 GM POWD.PACK GT SCH ×3 (07:56→17:11)
[2018-05-15 08:00] VITALS: BP 140/49
--- NOTE | 2018-05-15 08:00 | NUR ---
RN NOTES RECEIVED PATIENT ON BED WITH SPONTANEOUS EYE OPENING; AROUSABLE VIA VERBAL STIMULI. NON VERBAL, [facility], SETTINGS ORDERED. NOT IN APPARENT DISTRESS. ST ON THE PHYSICIAN [facility]. IV ACCESS G20 NOTED INTACT ON LEFT UPPER ARM. PERMACATH INTACT, ON RIGHT CHEST WALL. MONITORED FOR BLEEDING. GT INTACT, FEEDING ONGOING ORDERED. TO MONITOR FOR RESIDUALS. ASPIRATION PRECAUTIONS ENSURED AT ALL TIMES. MONITORED FOR INCONTINENCE. SAFETY MEASURES ENSURED, BED IN LOW, LOCKED POSITION, CALL LIGHT IN REACH. WILL CONT. TO MONITOR.
[2018-05-15 08:45] LABS: BASOPHILS % (AUTO) 0.3 % (0.0-2.0); EOSINOPHILS % (AUTO) 1.3 % (0.0-6.0); HEMATOCRIT 25 % (33-45); HEMOGLOBIN 8.1 g/dL (11.5-14.8); LYMPHOCYTES # (AUTO) 2.2 /CMM (0.8-4.8); LYMPHOCYTES % (AUTO) 14.9 % (20.0-44.0); MEAN CORPUSCULAR HEMOGLOBIN 29 PG (26.0-33.0); MEAN CORPUSCULAR HGB CONC 32 g/dl (31.0-36.0); MEAN CORPUSCULAR VOLUME 90 fL (82-100); MONOCYTES # (AUTO) 0.6 /CMM (0.1-1.30); MONOCYTES % (AUTO) 3.9 % (2.0-12.0); NEUTROPHILS # (AUTO) 11.5 /CMM (1.8-8.9); NEUTROPHILS % (AUTO) 79.6 % (43.0-81.0); PLATELET COUNT (AUTO) 307 /CMM (150-450); RDW COEFFICIENT OF VARIATION 16.5 (11.5-15.0); RED BLOOD CELL COUNT(AUTO) 2.79 MIL/uL (4.0-5.2); WHITE BLOOD COUNT (AUTO) 14.4 K/uL (4.3-11.0)
--- NOTE | 2018-05-15 09:16 | NUR ---
RT NOTE RECEIVED TRACHED PT ON VENT PORTEX 8 ON AC MODE. TOLERATING VENT SETTINGS. PT AWAKE DOES NOT FOLLOW COMMANDS,TRACH PATENT AND SECURED, BREATHING TX GIVEN PER MD'S ORDER. NO ADVERSE REACTION NOTED. SX'D MODERATE AMOUNT OF YELLOW/RODRIGUES SECRETIONS. VENT ALARMS SET AND AUDIBLE. CUFF CHECKED VIA SENIOR FINANCIAL REPORTING ACCOUNTANT. VENT PLUGGED INTO RED OUTLET. AMBU BAG AT BEDSIDE. BED AT 30% ANGLE TO PREVENT VAP, WILL CONTINUE TO MONITOR.
[2018-05-15] MEDS: ACIDOPHILUS/BULGARICUS 1 EACH TAB.CHEW GT SCH (10:29)
[2018-05-15] MEDS: ASCORBIC ACID 500 MG TABLET GT SCH (10:29)
[2018-05-15] MEDS: CHLORHEXIDINE GLUCONATE 15 ML UDC MM SCH (10:29)
[2018-05-15] MEDS: VIT B CMPLX 3/FA/VIT C/BIOTIN 1 TAB TABLET PO SCH (10:29)
[2018-05-15] MEDS: HYDROCODONE/APAP 5/325MG 1 EACH TABLET GT SCH (10:39)
[2018-05-15] MEDS: MIDODRINE HCL (5MG) 5 MG TABLET GT SCH ×3 (10:42→17:12)
[2018-05-15] MEDS: INSULIN GLARGINE, 100 UNIT/ML CARTRIDGE SQ SCH (10:55)
[2018-05-15] MEDS: CADEXOMER IODINE 40 GM TUBE TP SCH (10:57)
[2018-05-15] MEDS: Z GUARD REMEDY 2 OZ OINT TP SCH (10:57)
[2018-05-15 12:00] VITALS: BP 150/80
[2018-05-15] MEDS: AMIKACIN 400 MG in IV D5W 100 ML IV PRN (12:07)
[2018-05-15 16:00] VITALS: BP 155/80
[2018-05-15 17:12] VITALS: BP 160/86
--- NOTE | 2018-05-15 18:30 | NUR ---
CHEVY RN NOTES PATIENT IS TRANSFERRED VIA AMBULANCE TO [facility] . PATIENT IS STABLE, B/P-162/88, HR 101, NO FEVER , NO SOB NOTED AT THIS TIME. REPORT IS GIVEN TO MAKEDA LUO IN [facility] , PHON # [phone].PICTURES TAKEN AND PLACED IN CHART, IV LINE REMOVED, TELE BOX REMOVED, WRIST BANDS REMOVED. DISCHARGE INSTRUCTIONS PROVIDED, EXIT CARE COMPLETED.
[2018-05-15] MEDS ORDERED: COLISTIMETHATE SODIUM 150 MG VIAL NEB SCH (21:00)
== END 2018-05-15 18:31 | DRG 721 ==
LOC: ER 08:25 → TELE1 12:23 → TELE-TD 04-28 01:06 → ICU 05-01 12:05 → TELE-TD 05-04 18:14 → TELE1 05-07 15:30
PROVIDERS: ADMIT Internal Medicine; ATTEND Internal Medicine
PROC: 0JBR0ZZ Excision of Left Foot Subcutaneous Tissue and Fascia, Open Approach (ICD-10-PCS; principal; 2018-04-25)
PROC: 5A1D70Z Performance of Urinary Filtration, Intermittent, Less than 6 Hours Per Day (ICD-10-PCS; principal; 2018-04-25)
PROC: 5A1D70Z Performance of Urinary Filtration, Intermittent, Less than 6 Hours Per Day (ICD-10-PCS; 2018-04-26)
PROC: B547ZZA Ultrasonography of Left Subclavian Vein, Guidance (ICD-10-PCS; 2018-04-27)
PROC: 05H633Z Insertion of Infusion Device into Left Subclavian Vein, Percutaneous Approach (ICD-10-PCS; 2018-04-27)
PROC: 5A1955Z Respiratory Ventilation, Greater than 96 Consecutive Hours (ICD-10-PCS; 2018-04-28)
PROC: 0JHL3XZ Insertion of Tunneled Vascular Access Device into Right Upper Leg Subcutaneous Tissue and Fascia, Percutaneous Approach (ICD-10-PCS; 2018-04-29)
PROC: B54BZZA Ultrasonography of Right Lower Extremity Veins, Guidance (ICD-10-PCS; 2018-04-29)
PROC: B546ZZA Ultrasonography of Right Subclavian Vein, Guidance (ICD-10-PCS; 2018-04-29)
PROC: 06HM33Z Insertion of Infusion Device into Right Femoral Vein, Percutaneous Approach (ICD-10-PCS; 2018-04-29)
PROC: 05H533Z Insertion of Infusion Device into Right Subclavian Vein, Percutaneous Approach (ICD-10-PCS; 2018-04-29)
PROC: 5A12012 Performance of Cardiac Output, Single, Manual (ICD-10-PCS; 2018-05-01)
PROC: 5A1D70Z Performance of Urinary Filtration, Intermittent, Less than 6 Hours Per Day (ICD-10-PCS; 2018-05-01)
PROC: 5A1D70Z Performance of Urinary Filtration, Intermittent, Less than 6 Hours Per Day (ICD-10-PCS; 2018-05-02)
PROC: 30233N1 Transfusion of Nonautologous Red Blood Cells into Peripheral Vein, Percutaneous Approach (ICD-10-PCS; 2018-05-02)
PROC: 5A1D70Z Performance of Urinary Filtration, Intermittent, Less than 6 Hours Per Day (ICD-10-PCS; 2018-05-04)
PROC: 5A1D70Z Performance of Urinary Filtration, Intermittent, Less than 6 Hours Per Day (ICD-10-PCS; 2018-05-06)
PROC: 5A1D70Z Performance of Urinary Filtration, Intermittent, Less than 6 Hours Per Day (ICD-10-PCS; 2018-05-08)
PROC: B547ZZA Ultrasonography of Left Subclavian Vein, Guidance (ICD-10-PCS; 2018-05-10)
PROC: 5A1D70Z Performance of Urinary Filtration, Intermittent, Less than 6 Hours Per Day (ICD-10-PCS; 2018-05-10)
PROC: 05H633Z Insertion of Infusion Device into Left Subclavian Vein, Percutaneous Approach (ICD-10-PCS; 2018-05-10)
PROC: 5A1D70Z Performance of Urinary Filtration, Intermittent, Less than 6 Hours Per Day (ICD-10-PCS; 2018-05-12)
PROC: 05HM33Z Insertion of Infusion Device into Right Internal Jugular Vein, Percutaneous Approach (ICD-10-PCS; 2018-05-13)
PROC: 0JHD3XZ Insertion of Tunneled Vascular Access Device into Right Upper Arm Subcutaneous Tissue and Fascia, Percutaneous Approach (ICD-10-PCS; 2018-05-13)
PROC: B543ZZA Ultrasonography of Right Jugular Veins, Guidance (ICD-10-PCS; 2018-05-13)
PROC: 5A1D70Z Performance of Urinary Filtration, Intermittent, Less than 6 Hours Per Day (ICD-10-PCS; 2018-05-14)
DX: T80.211A Bloodstream infection due to central venous catheter, initial encounter (principal); I21.4 Non-ST elevation (NSTEMI) myocardial infarction; J96.22 Acute and chronic respiratory failure with hypercapnia; A41.52 Sepsis due to Pseudomonas; I46.9 Cardiac arrest, cause unspecified; L89.624 Pressure ulcer of left heel, stage 4; G93.40 Encephalopathy, unspecified; I13.2 Hypertensive heart and chronic kidney disease with heart failure and with stage 5 chronic kidney disease, or end stage renal disease; I11.0 Hypertensive heart disease with heart failure; E11.22 Type 2 diabetes mellitus with diabetic chronic kidney disease; Z99.11 Dependence on respirator [ventilator] status; R53.2 Functional quadriplegia; N18.6 End stage renal disease; F03.90 Unspecified dementia, unspecified severity, without behavioral disturbance, psychotic disturbance, mood disturbance, and anxiety; Z93.0 Tracheostomy status; D63.1 Anemia in chronic kidney disease; Z99.2 Dependence on renal dialysis; Z93.1 Gastrostomy status; R13.10 Dysphagia, unspecified; E11.51 Type 2 diabetes mellitus with diabetic peripheral angiopathy without gangrene; E11.42 Type 2 diabetes mellitus with diabetic polyneuropathy; M86.9 Osteomyelitis, unspecified; E11.69 Type 2 diabetes mellitus with other specified complication; E03.9 Hypothyroidism, unspecified; Z88.0 Allergy status to penicillin; Z88.2 Allergy status to sulfonamides; Z79.4 Long term (current) use of insulin; Z79.899 Other long term (current) drug therapy; L89.890 Pressure ulcer of other site, unstageable; L89.510 Pressure ulcer of right ankle, unstageable; Z95.2 Presence of prosthetic heart valve; Z95.1 Presence of aortocoronary bypass graft; Z90.710 Acquired absence of both cervix and uterus; Z90.49 Acquired absence of other specified parts of digestive tract; Z80.0 Family history of malignant neoplasm of digestive organs; Z79.890 Hormone replacement therapy; Z79.01 Long term (current) use of anticoagulants; N39.0 Urinary tract infection, site not specified; M81.0 Age-related osteoporosis without current pathological fracture; M24.562 Contracture, left knee; M24.561 Contracture, right knee; R62.7 Adult failure to thrive; B96.5 Pseudomonas (aeruginosa) (mallei) (pseudomallei) as the cause of diseases classified elsewhere; E11.649 Type 2 diabetes mellitus with hypoglycemia without coma; Y84.9 Medical procedure, unspecified as the cause of abnormal reaction of the patient, or of later complication, without mention of misadventure at the time of the procedure; Y92.129 Unspecified place in nursing home as the place of occurrence of the external cause; I25.10 Atherosclerotic heart disease of native coronary artery without angina pectoris; I50.32 Chronic diastolic (congestive) heart failure; I25.2 Old myocardial infarction; I48.0 Paroxysmal atrial fibrillation; I05.0 Rheumatic mitral stenosis; E78.5 Hyperlipidemia, unspecified; E87.6 Hypokalemia; M85.9 Disorder of bone density and structure, unspecified
CPT/HCPCS: 31720; 36415; 36569; 36600; 71045-TC; 73650-TC; 80048-TC; 80053-TC; 80076-TC; 80150; 80170-TC; 80202-TC; 81000-TC; 82272-TC; 82803-TC; 82962-TC; 83605-TC; 83690-TC; 83735-TC; 84100-TC; 84484-TC; 85025-TC; 85027-TC; 85730-TC; 86850-TC; 86921-TC; 87040-TC; 87070-TC; 87081-TC; 87086-TC; 87186-TC; 90935-TC; 94002-TC; 94003-TC; 94640-TC; 94760-TC; 94762-TC; A4216; A4606; A4623; A6253; A6402; A6403; C1750; C1751; C9113; J0171; J0278; J0692; J0770; J0885; J1580; J1644; J1815; J2185; J2270; J2997; J3010; J3370; J3490; J7030; J7050; J7060; P9016-BL; P9047; Z7610